=== PATIENT | female | born 1995 | race Caucasian/White ===

== ENCOUNTER 2018-04-27 11:50 | Emergency (ER) | payer BC ==
--- NOTE | 2018-04-27 13:35 | EDPHYS ---
Physician Documentation [facility] Name: Kelly Hill Age: 22 yrs Sex: Female : 1995 Arrival Date: 04/27/2018 Time: 11:53 Bed 25 Private MD: None, None ED Physician Alex Prince MEDICAL SCIENTIFIC LIAISON: 04/27 11:58 LMP 04/27/2018 sg Historical: - Allergies: 11:55 No Known Allergies; sg - Home Meds: 11:55 None [Active]; sg - PMHx: 11:55 None; sg - PSHx: 11:54 achilles repair; sg - Immunization history:: Adult Immunizations up to date. - Social history:: Smoking status: Patient/guardian denies using tobacco, Patient/guardian denies using alcohol. - Ebola Screening: : Patient negative for fever greater than or equal to 101.5 degrees Fahrenheit, and additional compatible Ebola Virus Disease symptoms Patient denies exposure to infectious person Patient denies travel to an Ebola-affected area in the 21 days before illness onset No symptoms or risks identified at this time. Vital Signs: 11:58 BP 114 / 71; Pulse 64; Resp 17 S; Pulse Ox 99% on R/A; Weight 81.65 kg (R); Height 5 sg ft. 5 in. (165.10 cm); Pain 7/10; 12:00 Temp 98.0(O); sg 13:47 BP 120 / 75; Pulse 65; Resp 18; Pulse Ox 100% on R/A; hj 11:58 Body Mass Index 29.95 (81.65 kg, 165.10 cm) sg MDM: 13:34 Patient medically screened. kdr 04/27 13:18 Order name: Urine Dipstick--Ancillary (enter results) mb4 04/27 13:18 Order name: Urine --Ancillary (enter results) mb4 Administered Medications: 13:33 Drug: Clindamycin 300 mg Route: PO; hj 13:47 Follow up: Response: No adverse reaction hj 13:33 Drug: Amoxicillin 500 mg Route: PO; hj 13:47 Follow up: Response: No adverse reaction hj 13:33 Drug: Tylenol 1000 mg Route: PO; hj 13:47 Follow up: Response: No adverse reaction; Pain is decreased hj 13:33 Drug: Zofran 4 mg Route: PO; hj 13:47 Follow up: Response: No adverse reaction Disposition: 04/27/18 13:34 Discharged to Home. Impression: Peeritdontal infection left rear molar. - Condition is Stable. - Discharge Instructions: Dental Abscess, [id number]. - Prescriptions for Amoxicillin 500 mg Oral Capsule - take 1 capsule by ORAL route every 8 hours for 10 days; 30 tablet. Clindamycin HCl 300 mg Oral Capsule - take 1 capsule by ORAL route every 6 hours for 10 days; 40 capsule. Tramadol 50 mg Oral Tablet - take 1 tablet by ORAL route every 8 hours as needed; 12 tablet. promethazine 25 mg Oral Tablet - take 1 tablet by ORAL route every 6 hours As needed; 20 tablet. - Medication Reconciliation Form, Thank You Letter, Antibiotic Education, Prescription Opioid Use form. - Follow up: Private Physician; When: 2 - 3 days; Reason: If symptoms return, Further diagnostic work-up, Recheck today's complaints, Continuance of care, Re-evaluation by your physician. - Problem is an acute exacerbation. - Symptoms are unchanged. Addendum: 05/12/2018 11:04 Addendum: CC: Jaw Pain HPI: The patient has had long standing problems with her teeth k dr and for the last few days, she has had worsening left lower jaw pain. No other associated s/s . Addendum: ROS: Const: No fever, chills or weight loss Eyes: no visual changes or c/o, Neck: no pain or injury, CV: no CP or palpitations, Resp: no cough or congestion Abd: no n/v/d or pain, Back: no pain or injury, : no pain or bleeding, MS/Ext: no pain, injury, swelling, tingling, Skin: no lacerations, pain, injury, skin turgor good, Neuro: CN grossly intact and no other deficits, Psych: Appropriate for age, Allergy/Immunology: no rashes or other s/s, Endo: no evidence of polyuria, polydipsia, temperature control or other s/s . Addendum: Exam: Const: WDWN WF in NAD, Head/Face: no injury or deformity, she does have very mild swelling to the left lower jaw. No significant oral lesions Eyes: PERRLA, ENT: no pain, injury or bleeding, Neck: no pain, injury or deformity, full ROM Chest/Axilla: No pain, injury or deformity, CV: no rubs, gallops, murmurs, regular rate, Resp: CTAB, regular rate, Abd/GI: soft, NT, BS present in all quads and normal, Back: no injury or deformity, full ROM, MS/Extremity: no injury or deformity, FROM, distal pulses good and equal, Skin: no rashes, ecchymosis skin turgor good, Neuro: CN grossly intact, no other neuro deficits, Psych: appropriate for age, no SI/HI, no depression . Addendum: MDM (Discharge) All VS and nursing notes reviewed. The patient was counseled on the results and need for follow-up. The patient was discharged in stable condition. They were happy with the care they received and the plan for d/c and follow-up. . Signatures: Dispatcher [employer] EDKirby Celaya RN RN Alex Prince MD MD [facility] Brant Chamberlain RN RN Corrections: (The following items were deleted from the chart) 04/27 13:46 13:34 04/27/2018 13:34 Discharged to Home. Impression: Peeritdontal infection left rear hj molar. Condition is Stable. Forms are Medication Reconciliation Form, Thank You Letter, Antibiotic Education, Prescription Opioid Use. Follow up: Private Physician; When: 2 - 3 days; Reason: If symptoms return, Further diagnostic work-up, Recheck today's complaints, Continuance of care, Re-evaluation by your physician. Problem is an acute exacerbation. Symptoms are unchanged. kdr
--- NOTE | 2018-04-27 13:35 | ER ---
Nurse's Notes [facility] Name: Kelly Hill Age: 22 yrs Sex: Female : 1995 Arrival Date: 04/27/2018 Time: 11:53 Bed 25 Private MD: None, None Diagnosis: Peeritdontal infection left rear molar Presentation: 04/27 11:55 Presenting complaint: Patient states: Right upper jaw pain and swelling, reports it sg might be an infected tooth. has had nausea but denies, vomiting, fever, diarrhea. Transition of care: patient was not received from another setting of care. Onset of symptoms was April 27, 2018. Risk Assessment: Do you want to hurt yourself or someone else? Patient reports no desire to harm self or others. Initial Sepsis Screen: Does the patient meet any 2 criteria? No. Patient's initial sepsis screen is negative. Does the patient have a suspected source of infection? No. Patient's initial sepsis screen is negative. Care prior to arrival: None. 11:55 Method Of Arrival: Ambulatory sg 11:55 Acuity: JULISSA 4 sg Triage Assessment: 12:51 Headache History: Denies prior headaches. General: Appears in no apparent distress. hj uncomfortable, Behavior is calm, cooperative, appropriate for age. Pain: Complains of pain in L upper tooth Pain Pain began Also complains of. EENT: Reports pain in L upper tooth. Neuro: Level of Consciousness is awake, alert, obeys commands, Oriented to person, place, time, situation, Appropriate for age. Cardiovascular: Capillary refill < 3 seconds Patient's skin is warm and dry. Respiratory: Airway is patent Respiratory effort is even, unlabored, Respiratory pattern is regular, symmetrical. GI: No signs and/or symptoms were reported involving the gastrointestinal system. : No signs and/or symptoms were reported regarding the genitourinary system. Derm: No signs and/or symptoms reported regarding the dermatologic system. Musculoskeletal: No signs and/or symptoms reported regarding the musculoskeletal system. 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 - Social history:: Smoking status: Patient/guardian denies using tobacco, Patient/guardian denies using alcohol. - Ebola Screening: : Patient negative for fever greater than or equal to 101.5 degrees Fahrenheit, and additional compatible Ebola Virus Disease symptoms Patient denies exposure to infectious person Patient denies travel to an Ebola-affected area in the 21 days before illness onset No symptoms or risks identified at this time. Screenin:51 Abuse screen: Denies threats or abuse. Denies injuries from another. Nutritional hj screening: No deficits noted. Tuberculosis screening: No symptoms or risk factors identified. Fall Risk None identified. Assessment: 12:52 Reassessment: see triage for assessment;. hj Vital Signs: 11:58 BP 114 / 71; Pulse 64; Resp 17 S; Pulse Ox 99% on R/A; Weight 81.65 kg (R); Height 5 sg ft. 5 in. (165.10 cm); Pain 7/10; 12:00 Temp 98.0(O); sg 13:47 BP 120 / 75; Pulse 65; Resp 18; Pulse Ox 100% on R/A; hj 11:58 Body Mass Index 29.95 (81.65 kg, 165.10 cm) sg ED Course: 11:53 Patient arrived in ED. sb2 11:54 None, None is Private Physician. sb2 11:54 Arm band placed on. sg 11:57 Triage completed. sg 12:14 Alex Prinec MD is Attending Physician. kdr 12:47 Brant Chamberlain RN is Primary Nurse. hj 12:52 Patient has correct armband on for positive identification. Bed in low position. Call hj light in reach. Side rails up X 1. Adult w/ patient. 13:45 No provider procedures requiring assistance completed. Patient did not have IV access hj during this emergency room visit. Administered Medications: 13:33 Drug: Clindamycin 300 mg Route: PO; hj 13:47 Follow up: Response: No adverse reaction hj 13:33 Drug: Amoxicillin 500 mg Route: PO; hj 13:47 Follow up: Response: No adverse reaction hj 13:33 Drug: Tylenol 1000 mg Route: PO; hj 13:47 Follow up: Response: No adverse reaction; Pain is decreased hj 13:33 Drug: Zofran 4 mg Route: PO; hj 13:47 Follow up: Response: No adverse reaction hj Outcome: 13:34 Discharge ordered by . kdr 13:46 Discharged to home ambulatory, with family. 13:46 Condition: stable 13:46 Discharge instructions given to patient, family, Instructed on discharge instructions, follow up and referral plans. medication usage, Demonstrated understanding of instructions, follow-up care, medications, Prescriptions given X 4. 13:46 Patient left the ED. hj Signatures: Kirby Lowe RN RN Alex Prince MD MD kdr Joaquin, Henry, RN RN hj Billeau, Sheri sb2
[2018-04-27] MEDS ORDERED: AMOXICILLIN TRIHYDR 250 MG CAP ONE (13:40)
[2018-04-27] MEDS ORDERED: CLINDAMYCIN HCL 150 MG CAP ONE (13:40)
[2018-04-27] MEDS ORDERED: ACETAMINOPHEN 500 MG TAB ONE (13:40)
[2018-04-27] MEDS ORDERED: ONDANSETRON 4 MG (ODT) TAB ONE (13:41)
[2018-04-27 13:42] LABS: Urine Blood 2+ (NEG); Urine Glucose NEGATIVE (NEG); Urine Protein NEGATIVE (NEG); Urine pH 5.5 (5.0-7.0)
[2018-04-27 13:50] VITALS: BP 114/71; O2SAT 99
[2018-04-27 13:51] VITALS: TEMP 98
== END 2018-04-27 13:46 | disposition home or self-care (01) ==
LOC: ER 11:50
DX: K05.20 Aggressive periodontitis, unspecified (principal)
CPT/HCPCS: 81003; 81025; 99283

== ENCOUNTER 2018-12-07 07:14 | Emergency (ER) | payer BC ==
--- NOTE | 2018-12-07 08:36 | RAD REPORT ---
EXAM DESCRIPTION: RAD - Ankle Right 3 View - 12/07/2018 7:38 am CLINICAL HISTORY: Persistent right ankle and foot pain following fall 3 days earlier COMPARISON: None. FINDINGS: No fracture, dislocation or periosteal reaction. No joint effusion seen. No joint space na rrowing. No soft tissue abnormality. IMPRESSION: Negative right ankle
[2018-12-07] MEDS ORDERED: IBUPROFEN 400 MG TAB ONE (08:43)
[2018-12-07] MEDS ORDERED: IBUPROFEN 200 MG TAB PO ONE (08:43)
--- NOTE | 2018-12-07 08:55 | EDPHYS ---
Physician Documentation [facility] Name: Kelly Hill Age: 23 yrs Sex: Female : 1995 Arrival Date: 12/07/2018 Time: 07:18 Bed 5 Private MD: ED Physician Kenrick Castro HPI: 12/07 07:25 This 23 yrs old Female presents to ER via Unassigned with complaints of Right pm1 Ankle Injury. 07:25 The patient presents with pain. The complaints affect the right ankle. Onset: The pm1 symptoms/episode began/occurred just prior to arrival, this morning. Context: The problem was sustained at home, resulted from a mis-step by the patient, stairs, The mechanism of injury involved inversion of the affected ankle. Associated signs and symptoms: Pertinent negatives: calf tenderness, fever, numbness, swelling, tingling. Modifying factors: the symptoms are aggravated by weight bearing. Severity of symptoms: in the emergency department the symptoms are unchanged. The patient has not experienced similar symptoms in the past. The patient has not recently seen a physician. Patient tripped while walking down the stairs and stepped on her right foot inverted. Landed on her left side. Patient without any other pain than right ankle. No headache, head injury, neck pain, LOC. Historical: - Allergies: 07:29 No Known Allergies; ss - Home Meds: 07:29 None [Active]; ss - PMHx: 07:29 None; ss - PSHx: 07:29 achilles repair; ss - Immunization history:: Adult Immunizations up to date. - Social history:: Smoking status: Patient/guardian denies using tobacco. - Ebola Screening: : Patient denies exposure to infectious person Patient denies travel to an Ebola-affected area in the 21 days before illness onset. ROS: 07:25 Constitutional: Negative for fever, chills, and weight loss, Eyes: Negative for injury, pm1 pain, redness, and discharge, ENT: Negative for injury, pain, and discharge, Neck: Negative for injury, pain, and swelling, Cardiovascular: Negative for chest pain, palpitations, and edema, Respiratory: Negative for shortness of breath, cough, wheezing, and pleuritic chest pain, Abdomen/GI: Negative for abdominal pain, nausea, vomiting, diarrhea, and constipation, Back: Negative for injury and pain, : Negative for injury, bleeding, discharge, and swelling. 07:25 Skin: Negative for injury, rash, and discoloration, Neuro: Negative for headache, weakness, numbness, tingling, and seizure. 07:25 MS/extremity: Positive for pain, of the right ankle, Negative for decreased range of motion, deformity. Exam: 07:25 Constitutional: This is a well developed, well nourished patient who is awake, alert, pm1 and in no acute distress. Head/Face: Normocephalic, atraumatic. Neck: Trachea midline, no thyromegaly or masses palpated, and no cervical lymphadenopathy. Supple, full range of motion without nuchal rigidity, or vertebral point tenderness. No Meningismus. Chest/axilla: Normal chest wall appearance and motion. Nontender with no deformity. No lesions are appreciated. Cardiovascular: Regular rate and rhythm with a normal S1 and S2. No gallops, murmurs, or rubs. Normal PMI, no JVD. No pulse deficits. Respiratory: Lungs have equal breath sounds bilaterally, clear to auscultation and percussion. No rales, rhonchi or wheezes noted. No increased work of breathing, no retractions or nasal flaring. Abdomen/GI: Soft, non-tender, with normal bowel sounds. No distension or tympany. No guarding or rebound. No evidence of tenderness throughout. Back: No spinal tenderness. No costovertebral tenderness. Full range of motion. Skin: Warm, dry with normal turgor. Normal color with no rashes, no lesions, and no evidence of cellulitis. 07:25 Musculoskeletal/extremity: Extremities: noted in the right medial malleolus: pain, There is no evidence of decreased ROM, deformity, swelling, ROM: intact in all extremities, Circulation is intact in all extremities. Sensation intact. 07:25 Neuro: Orientation: is normal, Motor: is normal, moves all fours. Vital Signs: 07:29 BP 129 / 82; Pulse 73; Resp 16; Temp 97.7(TE); Pulse Ox 98% on R/A; Weight 81.65 kg; ss Height 5 ft. 4 in. (162.56 cm); Pain 3/10; 07:29 Body Mass Index 30.90 (81.65 kg, 162.56 cm) ss Procedures: 08:30 Splinting: Splint applied to right ankle using Air Cast, applied by nurse. Examined by pm1 me, post splint application: neurovascular intact, 2+ distal pulses palpable, brisk capillary refill noted, Patient tolerated well. MDM: 07:22 Patient medically screened. pm1 07:25 ED course: Patient does not want any pain medications offered in the ER. pm1 07:31 Data reviewed: vital signs. Data interpreted: Pulse oximetry: on room air is 98 %. pm1 Interpretation: normal. 08:21 Counseling: I had a detailed discussion with the patient and/or guardian regarding: the pm1 historical points, exam findings, and any diagnostic results supporting the discharge/admit diagnosis, radiology results, the need for outpatient follow up, a orthopedic surgeon, to return to the emergency department if symptoms worsen or persist or if there are any questions or concerns that arise at home. 08:21 ED course: Patient requesting medication for pain now. Patient does not want any pm1 medications stronger than ibuprofen. 08:21 ED course: Negative right ankle xray interpreted by me. Will discharge patient home pm1 with splint and crutches to follow up with orthopedics. 12/07 07:25 Order name: Ankle Right 3 View XRAY; Complete Time: 08:41 pm1 12/07 08:21 Order name: Crutches; Complete Time: 08:50 pm1 12/07 08:21 Order name: Aircast Ankle Splint; Complete Time: 08:50 pm1 Administered Medications: 08:50 Drug: Ibuprofen 600 mg Route: PO; ph 08:50 Follow up: Response: No adverse reaction ph Disposition: 12/08 06:50 Co-signature as Attending Physician, Kenrick Castro MD I agree with the assessment and wa plan of care. Disposition: 12/07/18 08:23 Discharged to Home. Impression: Sprain of unspecified ligament of right ankle. - Condition is Stable. - Discharge Instructions: Ankle Sprain, Crutch Use. - Work release form, Medication Reconciliation Form, Thank You Letter, Antibiotic Education, Prescription Opioid Use form. - Follow up: Emergency Department; When: As needed; Reason: Worsening of condition. Follow up: Kirby Blanc MD; When: 2 - 3 days; Reason: Recheck today's complaints, Continuance of care, Re-evaluation by your physician. - Problem is new. - Symptoms have improved. Signatures: Dispatcher [employer] EDMS Sasha Ames RN RN ss Kasandra Smith RN RN ph Oskar Angulo, USHA FELT COVERER pm1 Kenrick Castro MD MD wa Corrections: (The following items were deleted from the chart) 12/07 08:54 08:23 12/07/2018 08:23 Discharged to Home. Impression: Sprain of unspecified ligament ph of right ankle. Condition is Stable. Forms are Medication Reconciliation Form, Thank You Letter, Antibiotic Education, Prescription Opioid Use. Follow up: Emergency Department; When: As needed; Reason: Worsening of condition. Follow up: Kirby Blanc; When: 2 - 3 days; Reason: Recheck today's complaints, Continuance of care, Re-evaluation by your physician. Problem is new. Symptoms have improved. pm1
--- NOTE | 2018-12-07 08:55 | ER ---
Nurse's Notes [facility] Name: Kelly Hill Age: 23 yrs Sex: Female : 1995 Arrival Date: 12/07/2018 Time: 07:18 Bed 5 Private MD: Diagnosis: Sprain of unspecified ligament of right ankle Presentation: 12/07 07:27 Presenting complaint: Patient states: pain to top of R foot and R ankle that began 20 ss minutes ago after falling down 3 steps and landing on ankle wrong. Transition of care: patient was not received from another setting of care. Onset of symptoms was December 07, 2018. Risk Assessment: Do you want to hurt yourself or someone else? Patient reports no desire to harm self or others. Initial Sepsis Screen: Does the patient meet any 2 criteria? No. Patient's initial sepsis screen is negative. Does the patient have a suspected source of infection? No. Patient's initial sepsis screen is negative. Care prior to arrival: None. 07:27 Method Of Arrival: Wheelchair ss 07:27 Acuity: JULISSA 4 ss Historical: - Allergies: 07:29 No Known Allergies; ss - Home Meds: 07:29 None [Active]; ss - PMHx: 07:29 None; ss - PSHx: 07:29 achilles repair; ss - Immunization history:: Adult Immunizations up to date. - Social history:: Smoking status: Patient/guardian denies using tobacco. - Ebola Screening: : Patient denies exposure to infectious person Patient denies travel to an Ebola-affected area in the 21 days before illness onset. Screenin:33 Abuse screen: Denies threats or abuse. Denies injuries from another. Nutritional ph screening: No deficits noted. Tuberculosis screening: No symptoms or risk factors identified. Fall Risk None identified. Assessment: 07:45 General: Appears in no apparent distress. comfortable. Pain: Complains of pain in right ph foot and right ankle. Neuro: Level of Consciousness is awake, alert, obeys commands, Oriented to person, place, time, situation. Cardiovascular: Capillary refill < 3 seconds in bilateral fingers Patient's skin is warm and dry. Pulses are palpable in right dorsalis pedis artery and left dorsalis pedis artery. Respiratory: Airway is patent Respiratory effort is even, unlabored, Respiratory pattern is regular, symmetrical. Derm: Skin is intact, is healthy with good turgor, Skin is pink, warm \T\ dry. Musculoskeletal: Circulation, motion, and sensation intact. Range of motion: intact in all extremities, Swelling absent. 08:51 Reassessment: Patient appears in no apparent distress at this time. Patient and/or ph family updated on plan of care and expected duration. Pain level reassessed. Patient is alert, oriented x 3, equal unlabored respirations, skin warm/dry/pink. Pt d/c home w SO. Vital Signs: 07:29 BP 129 / 82; Pulse 73; Resp 16; Temp 97.7(TE); Pulse Ox 98% on R/A; Weight 81.65 kg; ss Height 5 ft. 4 in. (162.56 cm); Pain 3/10; 07:29 Body Mass Index 30.90 (81.65 kg, 162.56 cm) ED Course: 07:18 Patient arrived in ED. tw3 07:22 Oskar Angulo NP is PHCP. pm1 07:22 Austin Drew MD is Attending Physician. pm1 07:28 Triage completed. ss 07:29 Arm band placed on right wrist. ss 07:31 Kasandra Smith, MARTA is Primary Nurse. ph 07:33 Patient has correct armband on for positive identification. Bed in low position. Call ph light in reach. Side rails up X 1. Pulse ox on. NIBP on. 07:36 X-ray completed. Portable x-ray completed in exam room. Patient tolerated procedure jb2 well. 07:36 Ankle Right 3 View XRAY In Process Unspecified. EDMS 08:22 No provider procedures requiring assistance completed. Patient did not have IV access ph during this emergency room visit. 08:23 Kirby Blanc MD is Referral Physician. pm1 08:26 Kenrick Castro MD is Attending Physician. pm1 08:51 Crutch training done. Air stirrup applied to right ankle. ph Administered Medications: 08:50 Drug: Ibuprofen 600 mg Route: PO; ph 08:50 Follow up: Response: No adverse reaction ph Outcome: 08:23 Discharge ordered by . pm1 08:51 Discharged to home ambulatory, with crutches, with significant other. ph 08:51 Condition: good 08:51 Discharge instructions given to patient, Instructed on discharge instructions, follow up and referral plans. crutch walking, Demonstrated understanding of instructions, follow-up care, crutch walking. 08:54 Patient left the ED. ph Signatures: Dispatcher [employer] Fernando Mcwilliams Shelby, RN Kasandra Maddox RN RN ph Marinas, Patrick, RUG RENOVATOR RUG RENOVATOR pm1 Nicolas, Destiny tw3
[2018-12-07 08:58] VITALS: BP 129/82; TEMP 97.7; O2SAT 98
== END 2018-12-07 08:54 | disposition home or self-care (01) ==
LOC: ER 07:14
DX: S93.401A Sprain of unspecified ligament of right ankle, initial encounter (principal); W10.8XXA Fall (on) (from) other stairs and steps, initial encounter; Y93.9 Activity, unspecified; Y92.9 Unspecified place or not applicable
CPT/HCPCS: 99284

== ENCOUNTER 2019-03-07 07:02 | Emergency (ER) | payer BC ==
[2019-03-07 07:56] LABS: Absolute Lymphocytes (CBC) 2.9 K/uL (0.7-4.9); Basophils % 0.4 % (0-1.3); Eosinophils % 1.7 % (0-4.4); Hematocrit 42.8 % (36.0-45.0); Lymphocytes % 37.8 % (15.3-44.8); MPV 7.9 fL (7.6-11.3); Monocytes % 7.5 % (3.3-12.3); RBC Red Blood Cell Count 4.98 M/uL (3.86-4.86)
[2019-03-07 08:25] LABS: BUN Blood Urea Nitrogen 17 mg/dL (7-18); Bicarbonate 27 mmol/L (21-32); Glucose Level 94 mg/dL (74-106); HCG, Quantitative 11653 mIU/mL (1-3); Potassium 3.9 mmol/L (3.5-5.1); Sodium Level 139 mmol/L (136-145)
--- NOTE | 2019-03-07 08:32 | EDPHYS ---
Physician Documentation [facility] Name: Kelly Hill Age: 23 yrs Sex: Female : 1995 Arrival Date: 03/07/2019 Time: 07:03 Bed 13 Private MD: ED Physician Robbie Jensen HPI: 03/07 07:16 This 23 yrs old Female presents to ER via Unassigned with complaints of Vag rn Bleeding 8 Wks Preg. 07:16 The patient presents to the emergency department with abdominal pain, of the right rn lower quadrant and left lower quadrant, that started this morning, described as crampy, vaginal bleeding. The estimated gestational age is 8 weeks. course: care: private OB physician, Leakage of Fluid: none appreciated, Ultrasound: the patient has not had an ultrasound. Previous pregnancies: the patient has never been . The patient has not experienced similar symptoms in the past. \T\ approx 8 weeks, has seen Dr. Cruz recently, + light vaginal bleeding, + abd cramping, no trauma, no other vaginal discharge. . 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 - Social history:: Smoking status: Patient/guardian denies using tobacco. - Family history:: not pertinent. - Ebola Screening: : Patient negative for fever greater than or equal to 101.5 degrees Fahrenheit, and additional compatible Ebola Virus Disease symptoms. - Hospitalizations: : No recent hospitalization is reported. ROS: 07:16 Constitutional: Negative for fever, chills, and weight loss, Eyes: Negative for injury, rn pain, redness, and discharge, Cardiovascular: Negative for chest pain, palpitations, and edema, Respiratory: Negative for shortness of breath, cough, wheezing, and pleuritic chest pain, Abdomen/GI: + abd cramping Back: Negative for injury and pain, : + vaginal bleeding MS/Extremity: Negative for injury and deformity, Skin: Negative for injury, rash, and discoloration, Neuro: Negative for headache, weakness, numbness, tingling, and seizure. Exam: 07:16 Constitutional: This is a well developed, well nourished patient who is awake, alert, rn and in no acute distress. Head/Face: Normocephalic, atraumatic. Eyes: Pupils equal round and reactive to light, extra-ocular motions intact. Lids and lashes normal. Conjunctiva and sclera are non-icteric and not injected. Cornea within normal limits. Periorbital areas with no swelling, redness, or edema. ENT: MMM Cardiovascular: No pulse deficits. Respiratory: No increased work of breathing, no retractions or nasal flaring. Abdomen/GI: soft, mild bilateral lower abd tenderness, no rebound or peritoneal signs. Skin: Warm, dry with normal turgor. Normal color with no rashes, no lesions, and no evidence of cellulitis. Neuro: Awake and alert, GCS 15 Vital Signs: 07:10 BP 125 / 91; Pulse 83; Resp 17; Temp 98.0(O); Pulse Ox 99% on R/A; Weight 81.19 kg (R); rb1 Height 5 ft. 5 in. (165.10 cm) (R); Pain 0/10; 07:30 BP 128 / 78; Pulse 80; Resp 16; Temp 98.0(O); Pulse Ox 100% on R/A; Pain 0/10; rb1 08:15 rb1 08:35 BP 101 / 78; Pulse 72; Resp 16; Temp 98.0(O); Pulse Ox 99% on R/A; Pain 0/10; rb1 07:10 Body Mass Index 29.79 (81.19 kg, 165.10 cm) rb1 08:15 Pt. in [place] rb1 MDM: 07:11 Patient medically screened. rn 08:30 Differential diagnosis: ectopic . Data reviewed: vital signs, nurses notes, procedures rn test result(s), radiologic studies, ultrasound, and as a result, I will discharge patient. Counseling: I had a detailed discussion with the patient and/or guardian regarding: the historical points, exam findings, and any diagnostic results supporting the discharge/admit diagnosis, lab results, radiology results, the need for outpatient follow up, to return to the emergency department if symptoms worsen or persist or if there are any questions or concerns that arise at home. Special discussion: I discussed with the patient/guardian in detail that at this point there is no indication for admission to the hospital. It is understood, however, that if the symptoms persist or worsen the patient needs to return immediately for re-evaluation. Based on the history and exam findings, there is no indication for further emergent testing or inpatient evaluation. I discussed with the patient/guardian the need to see the OB Gyne specialist for further evaluation of the symptoms. ED course: U/S with pole and flickering heart beat, will dc home with pelvic rest and OB f/u. Approx 5w5d. . ED course: Rh+. Patient notified. Neg UA and no urinary symptoms.. 03/07 07:16 Order name: Quantitative Hcg; Complete Time: 08:32 rn 03/07 07:16 Order name: Abo/rh Typing; Complete Time: 08:24 rn 03/07 07:16 Order name: Basic Metabolic Panel; Complete Time: 08:32 rn 03/07 07:16 Order name: CBC with Diff; Complete Time: 08:01 rn 03/07 08:01 Order name: Urine Dipstick--Ancillary (enter results) ag 03/07 08:01 Order name: Urine --Ancillary (enter results) ag 03/07 07:16 Order name: Urine Test (obtain specimen); Complete Time: 07:57 rn 03/07 07:16 Order name: IV Saline Lock; Complete Time: 07:44 rn 03/07 07:16 Order name: Labs collected and sent; Complete Time: 07:44 rn 03/07 07:16 Order name: NPO; Complete Time: 07:44 rn 03/07 07:16 Order name: Urine Dipstick-Ancillary (obtain specimen); Complete Time: 07:57 rn 03/07 07:16 Order name: US Transvaginal Ob rn Administered Medications: No medications were administered Disposition: 03/07/19 08:32 Discharged to Home. Impression: Threatened . - Condition is Stable. - Discharge Instructions: Threatened Miscarriage, Vaginal Bleeding During , First Trimester, Pelvic Rest. - Medication Reconciliation Form, Thank You Letter, Antibiotic Education, Prescription Opioid Use, Work release form form. - Follow up: Judd Cruz MD; When: As needed; Reason: Recheck today's complaints, Re-evaluation by your physician. - Problem is new. - Symptoms have improved. Signatures: Dispatcher [employer] EDMS Robbie Jensen MD MD rn Nimco Pierce RN RN rb1 Corrections: (The following items were deleted from the chart) 08:47 08:32 03/07/2019 08:32 Discharged to Home. Impression: Threatened . Condition rb1 is Stable. Forms are Medication Reconciliation Form, Thank You Letter, Antibiotic Education, Prescription Opioid Use. Follow up: Judd Cruz; When: As needed; Reason: Recheck today's complaints, Re-evaluation by your physician. Problem is new. Symptoms have improved. rn
--- NOTE | 2019-03-07 08:32 | ER ---
Nurse's Notes [facility] Name: Kelly Hill Age: 23 yrs Sex: Female : 1995 Arrival Date: 03/07/2019 Time: 07:03 Bed 13 Private MD: Diagnosis: Threatened Presentation: 03/07 07:10 Presenting complaint: Patient states: Woke up with cramps and nausea and vomiting this rb1 morning. Has a milky red discharge. Transition of care: patient was not received from another setting of care. Onset of symptoms was March 07, 2019. Risk Assessment: Do you want to hurt yourself or someone else? Patient reports no desire to harm self or others. Initial Sepsis Screen: Does the patient meet any 2 criteria? No. Patient's initial sepsis screen is negative. Does the patient have a suspected source of infection? No. Patient's initial sepsis screen is negative. Care prior to arrival: None. 07:10 Method Of Arrival: Ambulatory rb1 07:10 Acuity: JULISSA 3 rb1 Triage Assessment: 07:10 General: Appears in no apparent distress. comfortable, Behavior is calm, cooperative, rb1 Denies fever. Pain: Denies pain. Quality of pain is described as crampy. Neuro: Level of Consciousness is awake, alert, obeys commands, Oriented to person, place, time, situation. Cardiovascular: Capillary refill < 3 seconds is brisk in bilateral fingers. Respiratory: Airway is patent Respiratory effort is even, unlabored, Respiratory pattern is regular, symmetrical. GI: Reports nausea, vomiting, started this morning. : No signs and/or symptoms were reported regarding the genitourinary system. Derm: Skin is pink, warm \T\ dry. 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 - Social history:: Smoking status: Patient/guardian denies using tobacco. - Family history:: not pertinent. - Ebola Screening: : Patient negative for fever greater than or equal to 101.5 degrees Fahrenheit, and additional compatible Ebola Virus Disease symptoms. - Hospitalizations: : No recent hospitalization is reported. Screenin:10 Abuse screen: Denies threats or abuse. Nutritional screening: No deficits noted. rb1 Tuberculosis screening: No symptoms or risk factors identified. Fall Risk None identified. Assessment: 07:10 General: See triage assessment. rb1 08:00 Reassessment: Patient appears in no apparent distress at this time. No changes from rb1 previously documented assessment. Significant other at bedside. 08:15 Reassessment: Pt. is in US. rb1 08:35 Reassessment: Patient appears in no apparent distress at this time. Patient and/or rb1 family updated on plan of care and expected duration. Pain level reassessed. Patient is alert, oriented x 3, equal unlabored respirations, skin warm/dry/pink. Patient denies pain at this time. Vital Signs: 07:10 BP 125 / 91; Pulse 83; Resp 17; Temp 98.0(O); Pulse Ox 99% on R/A; Weight 81.19 kg (R); rb1 Height 5 ft. 5 in. (165.10 cm) (R); Pain 0/10; 07:30 BP 128 / 78; Pulse 80; Resp 16; Temp 98.0(O); Pulse Ox 100% on R/A; Pain 0/10; rb1 08:15 rb1 08:35 BP 101 / 78; Pulse 72; Resp 16; Temp 98.0(O); Pulse Ox 99% on R/A; Pain 0/10; rb1 07:10 Body Mass Index 29.79 (81.19 kg, 165.10 cm) rb1 08:15 Pt. in [facility] ED Course: 07:03 Patient arrived in ED. ds1 07:07 Robbie Jensen MD is Attending Physician. rn 07:10 Arm band placed on right wrist. rb1 07:10 Patient has correct armband on for positive identification. Bed in low position. Call rb1 light in reach. Side rails up X 1. Pulse ox on. NIBP on. Warm blanket given. 07:17 Nimco Pierce, RN is Primary Nurse. rb1 07:24 Triage completed. rb1 07:27 Radiology exam delayed due to test not completed at this time. hr 07:35 Inserted saline lock: 22 gauge in right antecubital area, using aseptic technique. rb1 Blood collected. 08:16 US Transvaginal Ob In Process Unspecified. EDMS 08:31 Judd Cruz MD is Referral Physician. rn 08:47 No provider procedures requiring assistance completed. IV discontinued, intact, rb1 bleeding controlled, No redness/swelling at site. Pressure dressing applied. Administered Medications: No medications were administered Outcome: 08:32 Discharge ordered by MD. rn 08:47 Discharged to home ambulatory, with significant other. rb1 08:47 Condition: stable 08:47 Discharge instructions given to patient, Instructed on discharge instructions, follow up and referral plans. Demonstrated understanding of instructions, follow-up care, Prescriptions given X none 08:47 Patient left the ED. rb1 Signatures: Dispatcher [employer] EDNV Kin Kandiceflorentino Murphy, Bronwyn ds1 Robbie Jensen MD MD rn Barber, Rebecca, RN RN rb1
[2019-03-07 09:00] VITALS: TEMP 98
[2019-03-07 09:03] VITALS: BP 101/78; O2SAT 99
[2019-03-07 09:27] LABS: Urine Blood 1+ (NEG); Urine Glucose NEGATIVE (NEG); Urine Protein TRACE (NEG); Urine Specific Gravity 1.015 (1.005-1.030); Urine pH 8.5 (5.0-7.0)
--- NOTE | 2019-03-07 09:28 | RAD REPORT ---
EXAM DESCRIPTION: US - Transvaginal OB - 03/07/2019 8:16 am CLINICAL HISTORY: Bleeding, Preliminary findings provided at the time of the study. COMPARISON: None. FINDINGS: Uterus is 7.0 x 4.1 x 4.7 cm. No myometrial mass identified. Normal over shaped gestationa l sac is present in the fundal portion of the endometrial cavity. Yolk sac is identified. There is a small echogenic focus seen believed to be pole. Average sac diameter corresponds to a 6 week 0 day age. [place]-rump length measurement corresponds to a 5 week 5 day age. Cardiac activity was diffic ult to obtain but appears to be 100 BPM. No hematoma or mass within the uterus. A small complex 8 mm cyst present in the left ovary. No suspicious ovarian or adnexal finding. IMPRESSION: Early IUP is identified measuring 5 week 6 day age. Calculated JONATHAN is 11/01/2019. Heart rate was recorded at 100 BPM. This was difficult to obtain and is not definitive. No intrauterine hematoma or mass. No adnexal abnormality.
== END 2019-03-07 08:47 | disposition home or self-care (01) ==
LOC: ER 07:02
DX: O20.0 Threatened abortion (principal); Z3A.08 8 weeks gestation of pregnancy
CPT/HCPCS: 36415; 76817; 80048; 81003; 81025; 84702; 85025; 86900; 86901; 99284

== ENCOUNTER 2019-04-25 12:59 | Emergency (ER) | payer SELFPAY ==
[2019-04-25] MEDS ORDERED: FAMOTIDINE 20 MG/2 ML VIAL IV ONE (13:44)
[2019-04-25] MEDS ORDERED: NA CHLORIDE 0.9% 1,000 ML ONE ×2 (13:44→14:46)
[2019-04-25] MEDS ORDERED: ONDANSETRON 4 MG/2 ML VIAL ONE ×2 (13:44→14:22)
[2019-04-25 14:00] LABS: Absolute Lymphocytes (CBC) 1.6 K/uL (0.7-4.9); Basophils % 0.3 % (0-1.3); Hematocrit 39.3 % (36.0-45.0); Lymphocytes % 13.6 % (15.3-44.8); MPV 8.4 fL (7.6-11.3); RBC Red Blood Cell Count 4.65 M/uL (3.86-4.86)
[2019-04-25 14:16] LABS: ALT/SGPT 90 U/L (12-78); AST/SGOT 28 U/L (15-37); Albumin 4.1 g/dL (3.4-5.0); Alkaline Phosphatase 48 U/L (45-117); BUN Blood Urea Nitrogen 8 mg/dL (7-18); Bicarbonate 20 mmol/L (21-32); Bilirubin Direct 0.2 mg/dL (0-0.2); Bilirubin Total 0.8 mg/dL (0.2-1.0); Glucose Level 91 mg/dL (74-106); Lipase 59 U/L (73-393); Potassium 3.4 mmol/L (3.5-5.1); Protein, Total 7.9 g/dL (6.4-8.2); Sodium Level 137 mmol/L (136-145)
[2019-04-25] MEDS ORDERED: PROMETHAZINE 25 MG/ML VIAL ONE (14:46)
[2019-04-25 14:54] LABS: Urine Bacteria 20-50 /HPF (<20); Urine RBC <5 /HPF (NONE SEEN)
[2019-04-25 14:55] LABS: Urine Culture Reflex Order REFLEXED; Urine Mucus 2+ /HPF (NONE SEEN)
--- NOTE | 2019-04-25 16:21 | EDPHYS ---
Physician Documentation [facility] Name: Kelly Hill Age: 23 yrs Sex: Female : 1995 Arrival Date: 04/25/2019 Time: 13:00 Bed 6 Private MD: ED Physician Robbie Jensen HPI: 04/25 13:35 This 23 yrs old Female presents to ER via Ambulatory with complaints of cp Vomiting - 15 wks preg. 13:35 The patient presents to the emergency department with nausea, with "dry heaves", cp vomiting, that is continuous. 13:35 Onset: The symptoms/episode began/occurred this morning, at 03:00. Possible causes: cp . Associated signs and symptoms: Pertinent positives: abdominal pain, Pertinent negatives: constipation, diarrhea, fever, GI bleeding. Severity of symptoms: in the emergency department the symptoms are unchanged despite home interventions. 13:35 Patient reports she is approximately 15 weeks and denies any vaginal bleeding, cp leakage of fluids. 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 - Social history:: Smoking status: Patient/guardian denies using tobacco. - Ebola Screening: : No symptoms or risks identified at this time. ROS: 13:45 Constitutional: Positive for poor PO intake, Negative for body aches, chills, fever. cp 13:45 Eyes: Negative for injury, pain, redness, and discharge. cp 13:45 ENT: Negative for drainage from ear(s), ear pain, sore throat, difficulty swallowing, difficulty handling secretions. 13:45 Cardiovascular: Negative for chest pain. 13:45 Respiratory: Negative for cough, wheezing. 13:45 Abdomen/GI: Positive for abdominal pain, nausea and vomiting, anorexia, Negative for diarrhea, constipation, hematemesis, black/tarry stool, rectal bleeding. 13:45 : Negative for urinary symptoms, vaginal bleeding, vaginal discharge, leakage of fluids. 13:45 Skin: Negative for rash. 13:45 Neuro: Negative for altered mental status, headache, weakness. 13:45 All other systems are negative. Exam: 13:50 Constitutional: The patient appears in no acute distress, alert, awake, non-toxic, well cp developed, well nourished. 13:50 Head/Face: Normocephalic, atraumatic. cp 13:50 Eyes: Periorbital structures: appear normal, Conjunctiva: normal, no exudate, no injection, Sclera: no appreciated abnormality, Lids and lashes: appear normal, bilaterally. 13:50 ENT: External ear(s): are unremarkable, Nose: is normal, Mouth: Lips: moist, Oral mucosa: pink and intact, moist, Posterior pharynx: is normal, airway is patent, no erythema, no exudate. 13:50 Chest/axilla: Inspection: normal, Palpation: is normal, no crepitus, no tenderness. 13:50 Cardiovascular: Rate: normal, Rhythm: regular. 13:50 Respiratory: the patient does not display signs of respiratory distress, Respirations: normal, no use of accessory muscles, no retractions, no splinting, no tachypnea, labored breathing, is not present, Breath sounds: are clear throughout, no decreased breath sounds, no stridor, no wheezing. 13:50 Abdomen/GI: Inspection: abdomen appears normal, Bowel sounds: active, all quadrants, Palpation: soft, in all quadrants, mild abdominal tenderness, in the epigastric area, rebound tenderness, is not appreciated, voluntary guarding, is elicited in the epigastric area, involuntary guarding, is not appreciated. 13:50 Back: pain, is absent, ROM is normal. 13:50 Skin: no rash present. Vital Signs: 13:04 BP 128 / 81; Pulse 99; Resp 16; Temp 97.6; Pulse Ox 98% on R/A; Weight 79.38 kg; Height la1 5 ft. 4 in. (162.56 cm); 16:00 BP 124 / 76; Pulse 96; Resp 17; Pulse Ox 99% on R/A; rv 16:30 BP 126 / 71; Pulse 91; Resp 17; Temp 98; Pulse Ox 99% on R/A; rv 13:04 Body Mass Index 30.04 (79.38 kg, 162.56 cm) la1 MDM: 13:08 Patient medically screened. cp 15:55 ED course: VSS. Patient reports nausea improved. cp 16:00 Differential diagnosis: gastritis, cholecystitis, pancreatitis, viral gastroenteritis, cp gastroenteritis. 16:19 Data reviewed: vital signs, nurses notes, lab test result(s), and as a result, I will cp discharge patient. 16:20 Counseling: I had a detailed discussion with the patient and/or guardian regarding: the cp historical points, exam findings, and any diagnostic results supporting the discharge/admit diagnosis, lab results, to return to the emergency department if symptoms worsen or persist or if there are any questions or concerns that arise at home. 16:20 Response to treatment: the patient's symptoms have markedly improved after treatment. 04/25 13:29 Order name: Urine Microscopic Only; Complete Time: 15:51 04/25 15:52 Interpretation: Normal except: UBACT 20-50. 04/25 13:29 Order name: Basic Metabolic Panel; Complete Time: 14:22 04/25 14:22 Interpretation: Normal except: K 3.4; CO2 20. 04/25 13:29 Order name: CBC with Diff; Complete Time: 14:22 04/25 14:39 Interpretation: Normal except: WBC 12.0; NEUT A 9.9; LYM% 13.6; EDINSON% 82.7. 04/25 13:29 Order name: Creatinine for Radiology; Complete Time: 15:51 04/25 13:29 Order name: Hepatic Function; Complete Time: 14:22 04/25 14:40 Interpretation: Normal except: ALT 90; GLOB 3.8. 04/25 13:29 Order name: Lipase; Complete Time: 14:22 04/25 14:40 Interpretation: LIP 59; Reviewed. 04/25 13:48 Order name: Urine Dipstick--Ancillary (enter results) 04/25 13:48 Order name: Urine --Ancillary (enter results) 04/25 15:29 Order name: Urine Culture EDIN 04/25 13:29 Order name: Urine Dipstick-Ancillary (obtain specimen); Complete Time: 13:46 04/25 13:29 Order name: Urine Test (obtain specimen); Complete Time: 13:47 04/25 13:29 Order name: IV Saline Lock; Complete Time: 13:48 04/25 13:29 Order name: Labs collected and sent; Complete Time: 13:48 04/25 14:39 Order name: FHT's; Complete Time: 15:04 04/25 15:52 Order name: PO challenge; Complete Time: 16:29 cp Administered Medications: 13:48 Drug: Pepcid 20 mg Route: IVP; Site: right antecubital; hb 14:29 Follow up: Response: No adverse reaction; Nausea unchanged rv 13:49 Drug: NS 0.9% 1000 ml Route: IV; Rate: 1 bolus; Site: right antecubital; hb 14:29 Follow up: IV Status: Completed infusion; IV Intake: 1000ml rv 13:49 Drug: Zofran 4 mg Route: IVP; Site: right antecubital; hb 14:29 Follow up: Response: No adverse reaction; Nausea unchanged rv 14:27 Not Given (Duplicate Order): Zofran 4 mg IVP once; over 2 minutes sg 14:29 Drug: Zofran 4 mg Route: IVP; Site: right antecubital; rv 16:08 Follow up: Response: Nausea unchanged rv 14:50 Drug: Phenergan 25 mg Route: IVP; Site: right antecubital; rv 16:08 Follow up: Response: Marked relief of symptoms; Nausea is decreased rv 14:50 Drug: NS 0.9% 1000 ml Route: IV; Rate: 1 bolus; Site: right antecubital; rv 16:08 Follow up: IV Status: Completed infusion; IV Intake: 1000ml rv Disposition: 16:41 Co-signature as Attending Physician, Robbie Jensen MD. rn Disposition: 04/25/19 16:20 Discharged to Home. Impression: related conditions, unspecified, Nausea and vomiting. - Condition is Stable. - Discharge Instructions: Nausea and Vomiting, Adult, Second Trimester of , [id number]. - Prescriptions for Phenergan 25 mg Rectal Suppository - insert 1 suppository by RECTAL route every 6 hours As needed; 12 suppository. promethazine 25 mg Oral Tablet - take 1 tablet by ORAL route every 6 hours As needed; 20 tablet. - Medication Reconciliation Form, Thank You Letter, Antibiotic Education, Prescription Opioid Use form. - Follow up: Private Physician; When: 2 - 3 days; Reason: Recheck today's complaints. - Problem is new. - Symptoms have improved. Signatures: Dispatcher [employer] Kirby Jain RN RN sg Nieto, Roman, MD MD rn Attema, Lee, RN RN la1 Ricky Hong PA PA cp Lashon Terry, RN RN Yoseph Villegas, RN RN rv Corrections: (The following items were deleted from the chart) 16:30 16:20 04/25/2019 16:20 Discharged to Home. Impression: related conditions, rv unspecified; Nausea and vomiting. Condition is Stable. Forms are Medication Reconciliation Form, Thank You Letter, Antibiotic Education, Prescription Opioid Use. Follow up: Private Physician; When: 2 - 3 days; Reason: Recheck today's complaints. Problem is new. Symptoms have improved. cp
--- NOTE | 2019-04-25 16:21 | ER ---
Nurse's Notes [facility] Name: Kelly Hill Age: 23 yrs Sex: Female : 1995 Arrival Date: 04/25/2019 Time: 13:00 Bed 6 Private MD: Diagnosis: related conditions, unspecified;Nausea and vomiting Presentation: 04/25 13:03 Presenting complaint: Patient states: I am 15 weeks and having problems with la1 vomiting. I have not been able to hold anything down since 0300. I take bonjesta at home for nausea but its not helping. Transition of care: patient was not received from another setting of care. Onset of symptoms was April 25, 2019. Risk Assessment: Do you want to hurt yourself or someone else? Patient reports no desire to harm self or others. Initial Sepsis Screen: Does the patient meet any 2 criteria? No. Patient's initial sepsis screen is negative. Does the patient have a suspected source of infection? No. Patient's initial sepsis screen is negative. Care prior to arrival: None. 13:03 Method Of Arrival: Ambulatory la1 13:03 Acuity: JULISSA 3 la1 Triage Assessment: 13:05 General: Appears in no apparent distress. comfortable, Behavior is cooperative, bp appropriate for age, anxious. Pain: Denies pain. EENT: No deficits noted. Neuro: No deficits noted. Cardiovascular: No deficits noted. Respiratory: No deficits noted. GI: Reports nausea, vomiting. : No signs and/or symptoms were reported regarding the genitourinary system. Derm: No deficits noted. Musculoskeletal: No deficits noted. 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 - Social history:: Smoking status: Patient/guardian denies using tobacco. - Ebola Screening: : No symptoms or risks identified at this time. Screenin:09 Abuse screen: Denies threats or abuse. Denies injuries from another. Nutritional bp screening: No deficits noted. Tuberculosis screening: No symptoms or risk factors identified. Fall Risk None identified. Assessment: 13:08 General: SEE TRIAGE NOTE. GI: Abdomen is non-distended. bp 14:20 Reassessment: pt mother reports patient is nauseated after first round of zofran, sg requesting more medication. Aashish LEGGETT notified, orders received at this time. 14:45 Reassessment: pt mother at bedside, reports pt is "still vomiting". will attempt to do sg heart tones when patient is able to sit back in the bed. 14:47 Reassessment: Patient appears in no apparent distress at this time. Aashish LEGGETT notified sg pt experiencing nausea at this time, awaiting new orders. 15:54 Reassessment: Patient appears in no apparent distress at this time. Patient and/or sg family updated on plan of care and expected duration. Pain level reassessed. Patient is alert, oriented x 3, equal unlabored respirations, skin warm/dry/pink. pt to be PO challenged at this time, Aashish LEGGETT at bedside reevaluating pt at this time Patient states feeling better. Vital Signs: 13:04 BP 128 / 81; Pulse 99; Resp 16; Temp 97.6; Pulse Ox 98% on R/A; Weight 79.38 kg; Height la1 5 ft. 4 in. (162.56 cm); 16:00 BP 124 / 76; Pulse 96; Resp 17; Pulse Ox 99% on R/A; rv 16:30 BP 126 / 71; Pulse 91; Resp 17; Temp 98; Pulse Ox 99% on R/A; rv 13:04 Body Mass Index 30.04 (79.38 kg, 162.56 cm) la1 Vitals: 15:02 Heart Tones 160s RLQ. rv ED Course: 13:00 Patient arrived in ED. as 13:04 Triage completed. la1 13:04 Ricky Hong PA is PHCP. cp 13:04 Robbie Jensen MD is Attending Physician. cp 13:04 Arm band placed on right wrist. la1 13:09 Patient has correct armband on for positive identification. Bed in low position. Call bp light in reach. Side rails up X2. 13:48 Lashon Terry RN is Primary Nurse. hb 13:49 Initial lab(s) drawn, by nv, sent to lab. Inserted saline lock: 20 gauge in right em1 antecubital area, using aseptic technique. Blood collected. 14:17 Primary Nurse role handed off by Lashon Terry RN 14:17 Kirby Lowe, RN is Primary Nurse. sg 15:02 Yoseph Villegas, RN is Primary Nurse. rv 16:30 No provider procedures requiring assistance completed. IV discontinued, intact, rv bleeding controlled, No redness/swelling at site. Pressure dressing applied. Administered Medications: 13:48 Drug: Pepcid 20 mg Route: IVP; Site: right antecubital; hb 14:29 Follow up: Response: No adverse reaction; Nausea unchanged rv 13:49 Drug: NS 0.9% 1000 ml Route: IV; Rate: 1 bolus; Site: right antecubital; hb 14:29 Follow up: IV Status: Completed infusion; IV Intake: 1000ml rv 13:49 Drug: Zofran 4 mg Route: IVP; Site: right antecubital; hb 14:29 Follow up: Response: No adverse reaction; Nausea unchanged rv 14:27 Not Given (Duplicate Order): Zofran 4 mg IVP once; over 2 minutes sg 14:29 Drug: Zofran 4 mg Route: IVP; Site: right antecubital; rv 16:08 Follow up: Response: Nausea unchanged rv 14:50 Drug: Phenergan 25 mg Route: IVP; Site: right antecubital; rv 16:08 Follow up: Response: Marked relief of symptoms; Nausea is decreased rv 14:50 Drug: NS 0.9% 1000 ml Route: IV; Rate: 1 bolus; Site: right antecubital; rv 16:08 Follow up: IV Status: Completed infusion; IV Intake: 1000ml rv Intake: 14:29 IV: 1000ml; Total: 1000ml. rv 16:08 IV: 1000ml; Total: 2000ml. rv Outcome: 16:20 Discharge ordered by MD. cp 16:30 Discharged to home ambulatory, with family. rv 16:30 Condition: good 16:30 Discharge instructions given to patient, family, Instructed on discharge instructions, follow up and referral plans. medication usage, Demonstrated understanding of instructions, follow-up care, medications, Prescriptions given X 2. 16:30 Patient left the ED. rv Signatures: Kirby Lowe RN RN sg Bell Childress Eric em1 Raymon Little RN RN la1 Ricky Hong PA PA cp Baxter, Heather, RN RN Clyde Celis RN RN bp Bakari, Yoseph, RN RN rv
[2019-04-25 17:02] VITALS: O2SAT 99
[2019-04-25 17:05] VITALS: BP 126/71; TEMP 98
[2019-04-25 20:04] LABS: Urine Blood NEGATIVE (NEG); Urine Glucose NEGATIVE (NEG); Urine Protein 2+ (NEG); Urine pH 7.5 (5.0-7.0)
== END 2019-04-25 16:30 | disposition home or self-care (01) ==
LOC: ER 12:59
DX: O21.9 Vomiting of pregnancy, unspecified (principal); Z3A.15 15 weeks gestation of pregnancy
CPT/HCPCS: 36415; 80048; 80076; 81003; 81015; 81025; 83690; 85025; 87086; 87088; 96361; 96374; 96375; 99284; J2405; J2550; J7030

== ENCOUNTER 2019-05-04 10:26 | Emergency (ER) | payer SELFPAY ==
--- NOTE | 2019-05-04 11:17 | RAD REPORT ---
EXAM DESCRIPTION: RAD - Chest Single View - 05/04/2019 11:13 am CLINICAL HISTORY: DYSPNEA Chest pain. COMPARISON: No comparisons FINDINGS: Portable technique limits examination quality. The lungs are grossly clear. The heart is normal in size. No displaced fractures. IMPRESSION: No acute intrathoracic process suspected.
[2019-05-04] MEDS ORDERED: NA CHLORIDE 0.9% 1,000 ML ONE (11:26)
[2019-05-04] MEDS ORDERED: ONDANSETRON 4 MG/2 ML VIAL ONE ×2 (11:44→11:45)
[2019-05-04 11:48] LABS: Absolute Lymphocytes (CBC) 1.9 K/uL (0.7-4.9); Basophils % 0.3 % (0-1.3); Hematocrit 37.8 % (36.0-45.0); Lymphocytes % 20.3 % (15.3-44.8); MPV 8.4 fL (7.6-11.3); RBC Red Blood Cell Count 4.41 M/uL (3.86-4.86)
[2019-05-04 12:00] LABS: Arterial Blood Carboxyhemoglob 0.9 % (0-1.5); Blood Gas Oxyhemoglobin 97.5 % (94-97); Blood O2 Saturation 99.1 % (92-98.5)
[2019-05-04 12:06] LABS: BUN Blood Urea Nitrogen 7 mg/dL (7-18); Bicarbonate 25 mmol/L (21-32); Glucose Level 82 mg/dL (74-106); Potassium 3.6 mmol/L (3.5-5.1); Sodium Level 138 mmol/L (136-145)
--- NOTE | 2019-05-04 12:15 | ER ---
Nurse's Notes [facility] Name: Kelly Hill Age: 23 yrs Sex: Female : 1995 Arrival Date: 05/04/2019 Time: 10:28 Bed 14 Private MD: Diagnosis: Dyspnea; related exhaustion and fatigue, second trimester;Hyperventilation Presentation: 05/04 10:36 Presenting complaint: Patient states: I feel like I am SOB and I am not getting enough la1 air, it started after I vomited this morning at 0500. I am still having nausea and vomiting. I am about 15 weeks . Transition of care: patient was not received from another setting of care. Onset of symptoms was May 04, 2019. Risk Assessment: Do you want to hurt yourself or someone else? Patient reports no desire to harm self or others. Initial Sepsis Screen: Does the patient meet any 2 criteria? No. Patient's initial sepsis screen is negative. Does the patient have a suspected source of infection? No. Patient's initial sepsis screen is negative. Care prior to arrival: None. 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 - Social history:: Smoking status: Patient/guardian denies using tobacco. - Ebola Screening: : No symptoms or risks identified at this time. - Family history:: not pertinent. Screenin:30 Abuse screen: Denies threats or abuse. Denies injuries from another. Nutritional jl7 screening: No deficits noted. Tuberculosis screening: No symptoms or risk factors identified. Fall Risk IV access (20 points). Total Sol Fall Scale indicates No Risk (0-24 pts). Assessment: 10:40 General: Appears in no apparent distress. uncomfortable, Behavior is cooperative, jl7 anxious. Pain: Complains of pain in low back area Pain does not radiate. Pain currently is 8 out of 10 on a pain scale. Quality of pain is described as sharp, Pain began "A while ago.". Neuro: Level of Consciousness is awake, alert, obeys commands, Oriented to person, place, time, situation. Cardiovascular: Heart tones S1 S2 present Rhythm is regular. Respiratory: Airway is patent Respiratory effort is even, unlabored, Respiratory pattern is regular, symmetrical, Breath sounds are clear bilaterally. GI: Abdomen is round non-distended. : No signs and/or symptoms were reported regarding the genitourinary system. EENT: No signs and/or symptoms were reported regarding the EENT system. Derm: Skin is pink, warm \\T\\ dry. Musculoskeletal: No signs and/or symptoms reported regarding the musculoskeletal system. 11:30 Reassessment: Patient appears in no apparent distress at this time. No changes from 7 previously documented assessment. Patient and/or family updated on plan of care and expected duration. Pain level reassessed. Patient is alert, oriented x 3, equal unlabored respirations, skin warm/dry/pink. 13:00 Reassessment: Dr. Chavis at bedside discussing plan of care. jl7 Vital Signs: 10:35 BP 118 / 81; Pulse 88; Resp 16; Temp 97.5; Pulse Ox 98% on R/A; Weight 81.65 kg; Height la1 5 ft. 4 in. (162.56 cm); 12:27 BP 145 / 65; Pulse 53; Resp 16 S; Pulse Ox 100% on R/A; jl7 10:35 Body Mass Index 30.90 (81.65 kg, 162.56 cm) la1 Vitals: 12:04 Heart Tones 138 bpm. jl7 ED Course: 10:28 Patient arrived in ED. cf2 10:36 Arm band placed on right wrist. la1 10:37 Triage completed. la1 10:38 Ricky Chavis MD is Attending Physician. sasha 10:40 Roger Sosa, MARTA is Primary Nurse. jl7 11:00 Initial lab(s) drawn, by me, sent to lab. Inserted saline lock: 20 gauge in right jl7 antecubital area, using aseptic technique. Blood collected. 11:14 Chest Single View XRAY In Process Unspecified. EDMS 11:23 EKG done, by pulmonary function technician. reviewed by Ricky Chavis MD. sm3 11:30 Patient has correct armband on for positive identification. Placed in gown. Bed in low jl7 position. Call light in reach. Side rails up X 1. Pulse ox on. NIBP on. Warm blanket given. 11:44 Urine collected: clean catch specimen, cloudy. 3 13:00 No provider procedures requiring assistance completed. IV discontinued, intact, jl7 bleeding controlled, No redness/swelling at site. Pressure dressing applied. Administered Medications: 11:30 Drug: NS 0.9% 500 ml Route: IV; Rate: bolus; Site: right antecubital; 7 12:28 Follow up: IV Status: Completed infusion; IV Intake: 500ml [facility] 11:46 Drug: Zofran 4 mg Route: IVP; Site: right antecubital; 7 12:00 Follow up: Response: No adverse reaction; Nausea is decreased [facility] 11:56 Drug: NS 0.9% 1000 ml Route: IV; Rate: 125 ml/hr; Site: right antecubital; 7 13:00 Follow up: Response: No adverse reaction; IV Status: Completed infusion; IV Intake: jl7 250ml Intake: 12:28 IV: 500ml; Total: 500ml. 7 13:00 IV: 250ml; Total: 750ml. [facility] Outcome: 12:14 Discharge ordered by . sasha 13:00 Discharged to home ambulatory, with family. [facility] 13:00 Condition: good 13:00 Discharge instructions given to patient, family, Instructed on discharge instructions, follow up and referral plans. medication usage, Demonstrated understanding of instructions, follow-up care, medications, Prescriptions given X 3. 13:09 Patient left the ED. [facility] Signatures: Dispatcher [employer] EDWA Ricky Chavis MD MD cha Attema, Lee RN RN la1 Roger Sosa RN RN jl7 Cece Jones 3 Stephanie Shelton 3 Freida Horta 2 Corrections: (The following items were deleted from the chart) 14:05 14:04 Response: No adverse reaction; IV Status: Completed infusion; IV Intake: 250ml [id number]
--- NOTE | 2019-05-04 12:16 | EDPHYS ---
Physician Documentation [facility] Name: Kelly Hill Age: 23 yrs Sex: Female : 1995 Arrival Date: 05/04/2019 Time: 10:28 Bed 14 Private MD: ED Physician Ricky Chavis HPI: 05/04 10:56 This 23 yrs old Female presents to ER via Ambulatory with complaints of sasha Shortness Of Breath - 15WKS PREG. 10:56 The patient has shortness of breath at rest, with light activity. Onset: The sasha symptoms/episode began/occurred just prior to arrival, this morning. Duration: The symptoms are continuous, and are unchanged since they started. The patient's shortness of breath has no apparent modifying factors. Associated signs and symptoms: The patient has no apparent associated signs or symptoms. Severity of symptoms: At their worst the symptoms were mild moderate in the emergency department the symptoms are unchanged. The patient has not experienced similar symptoms in the past. 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 - Social history:: Smoking status: Patient/guardian denies using tobacco. - Ebola Screening: : No symptoms or risks identified at this time. - Family history:: not pertinent. ROS: 10:56 Constitutional: Negative for fever, chills, and weight loss, Eyes: Negative for injury, sasha pain, redness, and discharge, ENT: Negative for injury, pain, and discharge, Neck: Negative for injury, pain, and swelling, Cardiovascular: Negative for chest pain, palpitations, and edema, Back: Negative for injury and pain, : Negative for injury, bleeding, discharge, and swelling, MS/Extremity: Negative for injury and deformity, Skin: Negative for injury, rash, and discoloration, Neuro: Negative for headache, weakness, numbness, tingling, and seizure, Psych: Negative for depression, anxiety, suicide ideation, homicidal ideation, and hallucinations, Allergy/Immunology: Negative for hives, rash, and allergies, Endocrine: Negative for neck swelling, polydipsia, polyuria, polyphagia, and marked weight changes, Hematologic/Lymphatic: Negative for swollen nodes, abnormal bleeding, and unusual bruising. 10:56 Respiratory: Positive for shortness of breath. 10:56 Abdomen/GI: Positive for abdominal distension. Exam: 10:56 Constitutional: This is a well developed, well nourished patient who is awake, alert, sasha and in no acute distress. Head/Face: Normocephalic, atraumatic. Eyes: Pupils equal round and reactive to light, extra-ocular motions intact. Lids and lashes normal. Conjunctiva and sclera are non-icteric and not injected. Cornea within normal limits. Periorbital areas with no swelling, redness, or edema. ENT: Nares patent. No nasal discharge, no septal abnormalities noted. Tympanic membranes are normal and external auditory canals are clear. Oropharynx with no redness, swelling, or masses, exudates, or evidence of obstruction, uvula midline. Mucous membranes moist. Neck: Trachea midline, no thyromegaly or masses palpated, and no cervical lymphadenopathy. Supple, full range of motion without nuchal rigidity, or vertebral point tenderness. No Meningismus. Chest/axilla: Normal chest wall appearance and motion. Nontender with no deformity. No lesions are appreciated. Cardiovascular: Regular rate and rhythm with a normal S1 and S2. No gallops, murmurs, or rubs. Normal PMI, no JVD. No pulse deficits. Back: No spinal tenderness. No costovertebral tenderness. Full range of motion. Skin: Warm, dry with normal turgor. Normal color with no rashes, no lesions, and no evidence of cellulitis. MS/ Extremity: Pulses equal, no cyanosis. Neurovascular intact. Full, normal range of motion. Neuro: Awake and alert, GCS 15, oriented to person, place, time, and situation. Cranial nerves II-XII grossly intact. Motor strength 5/5 in all extremities. Sensory grossly intact. Cerebellar exam normal. Normal gait. Psych: Awake, alert, with orientation to person, place and time. Behavior, mood, and affect are within normal limits. 10:56 Respiratory: the patient does not display signs of respiratory distress, Respirations: normal, Breath sounds: are clear throughout, no acute changes. 12:22 Musculoskeletal/extremity: DVT Exam: No signs of deep vein thrombosis. no pain, no sasha swelling, no tenderness, negative Homans' sign noted on exam, no appreciated bluish discoloration, no erythema, no increased warmth, no trauma, no stasis, no hc state. Vital Signs: 10:35 BP 118 / 81; Pulse 88; Resp 16; Temp 97.5; Pulse Ox 98% on R/A; Weight 81.65 kg; Height la1 5 ft. 4 in. (162.56 cm); 12:27 BP 145 / 65; Pulse 53; Resp 16 S; Pulse Ox 100% on R/A; jl7 10:35 Body Mass Index 30.90 (81.65 kg, 162.56 cm) la1 MDM: 10:38 Patient medically screened. [facility] 10:59 Data reviewed: vital signs, nurses notes, lab test result(s), EKG, radiologic studies, [facility] plain films. 05/04 10:56 Order name: Abo/rh Typing; Complete Time: 12:44 [facility] 05/04 10:56 Order name: Basic Metabolic Panel; Complete Time: 12:11 [facility] 05/04 10:56 Order name: CBC with Diff; Complete Time: 11:56 [facility] 05/04 10:56 Order name: D-Dimer; Complete Time: 12:11 [facility] 05/04 10:56 Order name: ABG: ON RA; Complete Time: 12:11 [facility] 05/04 11:47 Order name: Urine Dipstick--Ancillary (enter results) [facility] 05/04 10:56 Order name: IV Saline Lock; Complete Time: 11:56 [facility] 05/04 10:56 Order name: Labs collected and sent; Complete Time: 11:56 [facility] 05/04 10:56 Order name: EKG; Complete Time: 10:57 [facility] 05/04 10:56 Order name: Chest Single View XRAY; Complete Time: 11:43 [facility] 05/04 11:47 Order name: Urine --Ancillary (enter results) [facility] 05/04 10:56 Order name: NPO; Complete Time: 11:56 [facility] 05/04 10:56 Order name: Urine Dipstick-Ancillary (obtain specimen); Complete Time: 11:44 [facility] 05/04 10:56 Order name: EKG - Nurse/Tech; Complete Time: 11:55 [facility] 05/04 10:56 Order name: FHT's; Complete Time: 12:04 sasha Administered Medications: 11:30 Drug: NS 0.9% 500 ml Route: IV; Rate: bolus; Site: right antecubital; jl7 12:28 Follow up: IV Status: Completed infusion; IV Intake: 500ml jl7 11:46 Drug: Zofran 4 mg Route: IVP; Site: right antecubital; jl7 12:00 Follow up: Response: No adverse reaction; Nausea is decreased [facility] 11:56 Drug: NS 0.9% 1000 ml Route: IV; Rate: 125 ml/hr; Site: right antecubital; jl7 13:00 Follow up: Response: No adverse reaction; IV Status: Completed infusion; IV Intake: jl7 250ml Disposition: 05/04/19 12:14 Discharged to Home. Impression: Dyspnea, related exhaustion and fatigue, second trimester, Hyperventilation. - Condition is Stable. - Discharge Instructions: Hyperventilation, Shortness of Breath, Shortness of Breath, [id number], Fatigue. - Prescriptions for Vitamin 27- 0.8 mg Oral Tablet - take 1 tablet by ORAL route once daily; 30 tablet. Diclegis 10- 10 mg Oral tablet,delayed release (DR/EC) - take 1 tablet by ORAL route 3 times per day and 2 tablets at bedtime; 60 tablet. Zofran 4 mg Oral Tablet - take 1 tablet by ORAL route every 12 hours As needed; 20 tablet. - Work release form, Medication Reconciliation Form, Thank You Letter, Antibiotic Education, Prescription Opioid Use form. - Follow up: Private Physician; When: 2 - 3 days; Reason: Recheck today's complaints, Continuance of care, Re-evaluation by your physician. - Problem is new. - Symptoms have improved. Signatures: Dispatcher [employer] Ricky Cameron MD MD cha Attema, Lee RN RN la1 Roger Sosa RN RN jl7 Corrections: (The following items were deleted from the chart) 13:09 12:14 05/04/2019 12:14 Discharged to Home. Impression: Dyspnea; related jl7 exhaustion and fatigue, second trimester; Hyperventilation. Condition is Stable. Forms are Medication Reconciliation Form, Thank You Letter, Antibiotic Education, Prescription Opioid Use. Follow up: Private Physician; When: 2 - 3 days; Reason: Recheck today's complaints, Continuance of care, Re-evaluation by your physician. Problem is new. Symptoms have improved. sasha
[2019-05-04 13:24] LABS: Urine Blood NEGATIVE (NEG); Urine Glucose NEGATIVE (NEG); Urine Protein NEGATIVE (NEG); Urine pH 8.5 (5.0-7.0)
[2019-05-04 13:26] VITALS: TEMP 97.5
[2019-05-04 13:27] VITALS: BP 145/65; O2SAT 100
--- NOTE | 2019-05-04 13:48 | EKG ---
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
== END 2019-05-04 13:09 | disposition home or self-care (01) ==
LOC: ER 10:26
DX: O26.812 Pregnancy related exhaustion and fatigue, second trimester (principal); R06.4 Hyperventilation; R06.00 Dyspnea, unspecified; Z3A.15 15 weeks gestation of pregnancy
CPT/HCPCS: 36415; 71045; 80048; 81003; 81025; 82805; 85025; 85379; 86900; 86901; 93005; 96361; 96374; 99284; J2405; J7030

== ENCOUNTER 2020-03-08 07:41 | Emergency (ER) | payer SELFPAY ==
--- OUTSIDE RECORDS SUMMARY | 2020-03-08 07:49 | XMS REPORT | Continuity of Care Document ---
:1995 Author Organization [facility] t Address [address] [place] [address] Care Team Providers Name Role Phone Rober Drew MD Attending Clinician Doctor Unassigned, Name Attending Clinician Unavailable Problems This patient has no known problems. Allergies, Adverse Reactions, Alerts This patient has no known allergies or adverse reactions. Medications This patient has no known medications. Procedures This patient has no known procedures. Encounters Start End Encounter Admission Attending Care Care Encounter Source Date/Time Date/Time Type Type Clinicians Facility Department ID 2020-01-09 2020-01-09 Telephone Libertad Drew [id number] 00:00:00 00:00:00 Rober Moreno [id number] [place] [id number] [facility] [id number] [address] 2019-12-04 2019-12-04 Telephone Libertad Drew [id number] 00:00:00 00:00:00 Rober Moreno [id number] [place] [id number] [facility] [id number] [address] 2019-12-04 2019-12-04 Orders Doctor GUO [id number] 00:00:00 00:00:00 Only UnassignedJAMILA [id number] [place] [facility] [id number] 2019-11-21 2019-11-21 Telephone Libertad Drew [id number] 00:00:00 00:00:00 Rober Moreno [id number] [place] [id number] [facility] [phone] [facility] Results This patient has no known results.
--- OUTSIDE RECORDS SUMMARY | 2020-03-08 07:50 | XMS REPORT | Summary of Care ---
:1995 Author Organization [facility] Address [address] [place] [address] Care Team Providers Name Role Phone Rober Drew MD Primary Care Provider Tisha Umanzor Insurance Hmo Reason for Visit Reason Comments Appointment IUD insertion Encounter Details Date Type Department Care Team Description 01/09/2020 Telephone [facility] Libertad Drew MD Appointment ([facility]- [address] insertion) [address] [place] [address] [address] [facility] [address] [place], [place] [id number] [phone] Allergies No Known Allergiesdocumented as of this encounter (statuses as of 01/09/2020) Medications Medication Sig Dispensed Refills Start Date End Date Status Take 1 capsule by 30 capsule 6 06/22/2019 Active no.44-iron,car-FA-dh mouth daily. a (PRENATE MINI) 29 mg iron-1 mg -350 mg Cap docusate calcium 240 Take 1 capsule by 20 capsule 0 10/27/2019 Active mg mouth 2 (two) times capsuleIndications: daily as needed for Liveborn , of Constipation. garcia , born in hospital by vaginal delivery ibuprofen 600 mg Take 1 tablet by 30 tablet 0 10/27/2019 Active tabletIndications: mouth every 6 (six) Liveborn , of hours as needed for garcia , Pain (scale 4-6). born in hospital by vaginal delivery ferrous sulfate 325 Take 1 tablet by 60 tablet 2 10/27/2019 Active mg (65 mg iron) mouth 2 (two) times tabletIndications: daily. Liveborn , of garcia , born in hospital by vaginal delivery miSOPROStol 200 mcg Take one tablet 2 tablet 0 11/16/2019 Active tabletIndications: night before Counseling for procedure, then control regarding take one tablet intrauterine device morning of (IUD) procedure NUVARING 0.12-0.015 Insert 1 Each into 3 Each 4 12/04/2019 Active mg/24 hr vaginal vagina once every insert month. Insert vaginally and leave in place for 3 consecutive weeks, then remove for 1 week. documented as of this encounter (statuses as of 01/09/2020) Active Problems Problem Noted Date Liveborn , of garcia , born in [facility] by vaginal 10/26/2019 delivery 39 weeks gestation of 10/25/2019 Encounter for elective induction of labor 10/25/2019 Positive GBS test 10/06/2019 Encounter for supervision of normal first in third trimester 10/06/2019 Excessive weight gain during in third trimes ter 10/06/2019 Obesity (BMI 30-39.9) 06/22/2019 documented as of this encounter (statuses as of 01/09/2020) Resolved Problems Problem Noted Date Resolved Date Third trimester 08/30/2019 10/06/2019 38 weeks gestation of 08/30/2019 10/25/19 20 Vagina itching 08/30/2019 10/06/2019 Vaginal discharge 08/30/2019 10/06/2019 Need for Tdap vaccination 08/30/2019 10/25/2019 Dry skin 08/30/2019 10/25/2019 Abdominal pain affecting 06/17/201908/30 Nausea and vomiting during prior to 22 weeks 06/1708/30/2019 gestation 20 weeks gestation of 06/17/2019 08/30/20 19 documented as of this encounter (statuses as of 01/09/2020) Immunizations Name Administration Dates Next Due TDAP (ADACEL) VACCINE 08/29/2019 08/29/2029 documented as of this encounter Social History Tobacco Use Types Packs/Day Years Used Date Never Smoker Smokeless Tobacco: Former User Q uit: 2016 Alcohol Use Drinks/Week oz/Week Comments Not Currently Sex Assigned at Date Recorded Not on file Job Start Date Occupation Industry Not on file Not on file Not on file Travel History Travel Start Travel End No recent travel history available. documented as of this encounter Last Filed Vital Signs Not on filedocumented in this encounter Plan of Treatment Health Maintenance Due Date Last Done Comments VARICELLA VACCINES (1 of 2 1998 - 2-dose childhood series) MENINGOCOCCAL B VACCINES (1 2007 of 2 - Risk Bexsero 2-dose series) HPV VACCINES (1 - Female 2008 2-dose series) INFLUENZA VACCINE (#1) 2020 Postponed from 05/14/2019 (Refu sed) CHLAMYDIA SCREENING 10/14/2020 10/14/2019, 10/05/2019, 10/02/2019, Additional history exists PAP SMEAR 03/28/2022 03/28/2019 DTaP,Tdap,and Td Vaccines 08/29/2029 08/29/2019 (2 - Td) MENINGOCOCCAL VACCINE Aged Out No longer eligible based on patient 's age to complete this topic PNEUMOCOCCAL 0-64 YEARS Aged Out No longe r eligible COMBINED SERIES based on patient 's age to complete this topic documented as of this encounter Results Not on filedocumented in this encounter Insurance Payer Benefit Plan Subscriber ID Effective Phone Address Typ e / Group Dates [place] BCBS OF [id number] 2018-Pres [phone] [address] PPO/POS [place] - OUT [place] [id number] [place] [address] [facility] xxxxxxxxx 2019-[place] Medic aid HEALTHCARE COMM STAR nt PLAN - MANAGED MEDICAID documented as of this encounter
--- OUTSIDE RECORDS SUMMARY | 2020-03-08 07:50 | XMS REPORT | Summary of Care ---
:1995 Author Organization [facility] [[email or web address]] - Health Address [address] [place] [address] Care Team Providers Name Role Phone Rober Drew MD Primary Care Provider Tisha Umanzor Insurance Hmo Encounter Details Date Type Department Care Team Description 12/04/2019 Orders Only [facility] [[email or web address]] Doctor Unassigned, No [address] [facility] [place] [address] [address] [place] [address] Allergies No Known Allergiesdocumented as of this encounter (statuses as of 12/11/2019) Medications Medication Sig Dispensed Refills Start Date [...] mouth 2 (two) times tabletIndications: daily. Liveborn infant, of garcia , born in hospital by [...] as of this encounter (statuses as of 12/11/2019) Active Problems Problem Noted Date Liveborn infant, of garcia , born in [facility] by vaginal 10/26/2019 delivery 39 weeks gestation of 10/25/2019 Encounter for elective induction of labor 10/25/2019 Positive GBS test 10/06/2019 Encounter for supervision of normal first in third trimester 10/06/2019 Excessive weight gain during in third trimes ter 10/06/2019 Obesity (BMI 30-39.9) 06/22/2019 documented as of this encounter (statuses as of 12/11/2019) Resolved Problems Problem Noted Date Resolved Date [...] as of this encounter (statuses as of 12/11/2019) Immunizations Name Administration Dates Next Due TDAP [...] this topic documented as of this encounter Procedures Procedure Name Priority Date/Time Associated Diagnosis Comme nts CONSENT FOR CONTRACEPTION Routine 12/04/2019 12:01 AM CDT documented in this encounter Results Not on filedocumented in this encounter Insurance Payer Benefit Plan Subscriber ID Effective Phone Address Typ e / Group Dates [place] BCBS OF [id number] 2018-Pres [phone] [address] PPO/POS [place] - OUT ent [id number] [place] [address] [facility] xxxxxxxxx 2019-Prese Medic aid HEALTHCARE COMM STAR nt PLAN - MANAGED MEDICAID documented as of this encounter
--- NOTE | 2020-03-08 08:31 | ER ---
Nurse's Notes [facility] Name: Kelly Hill Age: 24 yrs Sex: Female : 1995 Arrival Date: 03/08/2020 Time: 07:43 Bed 14 Private MD: Diagnosis: Periapical abscess without sinus Presentation: 03/08 07:55 Chief complaint: Patient states: my gums have been swollen X 4 days and now feels a iw hard area under on left side of neck, no fever denies sore throat , has a wisdom tooth that has grown in on left side. Coronavirus screen: Proceed with normal triage. Patient denies a cough. Patient denies shortness of breath or difficulty breathing. Patient denies measured and/or subjective temperature greater than 100.4F prior to today's visit. Patient denies travel on a cruise ship or to a country the [facility] currently lists as an affected area. Patient denies contact with known and/or suspected case of COVID-19. Ebola Screen: Patient negative for fever greater than or equal to 101.5 degrees Fahrenheit, and additional compatible Ebola Virus Disease symptoms Patient denies exposure to infectious person. Patient denies travel to an Ebola-affected area in the 21 days before illness onset. No symptoms or risks identified at this time. Initial Sepsis Screen: Does the patient meet any 2 criteria? No. Patient's initial sepsis screen is negative. Does the patient have a suspected source of infection? No. Patient's initial sepsis screen is negative. Risk Assessment: Do you want to hurt yourself or someone else? Patient reports no desire to harm self or others. Onset of symptoms was March 04, 2020. 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 - Social history:: Smoking status: Patient denies any tobacco usage or history of. Screenin:32 Abuse screen: Denies threats or abuse. Denies injuries from another. Nutritional jl7 screening: No deficits noted. Tuberculosis screening: No symptoms or risk factors identified. Fall Risk None identified. Assessment: 08:32 General: Appears in no apparent distress. uncomfortable, Behavior is calm, cooperative, jl7 appropriate for age. Pain: Complains of pain in left jaw Pain currently is 5 out of 10 on a pain scale. Pain began x 5 days Is continuous. Neuro: Level of Consciousness is awake, alert, obeys commands, Oriented to person, place, time, situation. Cardiovascular: Patient's skin is warm and dry. Respiratory: Airway is patent Respiratory effort is even, unlabored, Respiratory pattern is regular, symmetrical. Derm: Skin is pink, warm \T\ dry. Vital Signs: 07:55 BP 123 / 59; Pulse 82; Resp 16; Temp 97.2; Pulse Ox 98% on R/A; Weight 86.18 kg; Height iw 5 ft. 5 in. (165.10 cm); Pain 5/10; 07:55 Body Mass Index 31.62 (86.18 kg, 165.10 cm) iw ED Course: 07:43 Patient arrived in ED. as 07:46 Batsheva Weir F[facility]-C [facility]. snw 07:46 Ricky Chavis MD is Attending Physician. snw 07:58 Triage completed. iw 07:58 Arm band placed on. iw 08:26 Roger Sosa, MARTA is Primary Nurse. jl7 08:32 Patient has correct armband on for positive identification. Bed in low position. Call jl7 light in reach. Side rails up X 1. Pulse ox on. NIBP on. 08:32 No provider procedures requiring assistance completed. Patient did not have IV access jl7 during this emergency room visit. Administered Medications: 08:32 Drug: Clindamycin 300 mg Route: PO; jl7 08:45 Follow up: Response: No adverse reaction jl7 08:32 Drug: [place] 5 mg-325 mg 1 tabs Route: PO; jl7 08:45 Follow up: Response: No adverse reaction jl7 Outcome: 08:31 Discharge ordered by . snw 08:45 Discharged to home ambulatory, with family. jl7 08:45 Condition: stable 08:45 Discharge instructions given to patient, family, Instructed on discharge instructions, follow up and referral plans. medication usage. 08:48 Patient left the ED. jl7 Signatures: Batsheva Weir, LOADING DOCK HELPER-C LOADING DOCK HELPER-Csnw Bell Childress as Lucero Cyr RN RN iw Roger Sosa RN RN jl7 Corrections: (The following items were deleted from the chart) 09:22 09:21 Patient left the ED. jl7 jl7
--- NOTE | 2020-03-08 08:32 | EDPHYS ---
Physician Documentation [facility] Name: Kelly Hill Age: 24 yrs Sex: Female : 1995 Arrival Date: 03/08/2020 Time: 07:43 Bed 14 Private MD: ED Physician Ricky Chavis HPI: 03/08 08:27 This 24 yrs old Female presents to ER via Ambulatory with complaints of Jaw snw Pain - swollen gums. 08:27 Onset: The symptoms/episode began/occurred suddenly. Associated signs and symptoms: snw Pertinent positives: tenderness and edema of face. The patient has not experienced similar symptoms in the past. The patient has not recently seen a physician. no dentist. 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 - Social history:: Smoking status: Patient denies any tobacco usage or history of. ROS: 08:28 Constitutional: Negative for fever, chills, and weight loss, Eyes: Negative for injury, snw pain, redness, and discharge, ENT: Negative for injury, pain, and discharge, pain and swelling to lower jaw. left 2nd mandibular molar Neck: Negative for injury, pain, and swelling, Cardiovascular: Negative for chest pain, palpitations, and edema, Respiratory: Negative for shortness of breath, cough, wheezing, and pleuritic chest pain, Abdomen/GI: Negative for abdominal pain, nausea, vomiting, diarrhea, and constipation, Back: Negative for injury and pain, : Negative for injury, bleeding, discharge, and swelling, MS/Extremity: Negative for injury and deformity, Skin: Negative for injury, rash, and discoloration, Neuro: Negative for headache, weakness, numbness, tingling, and seizure. Exam: 08:26 Constitutional: This is a well developed, well nourished patient who is awake, alert, snw and in no acute distress. Head/Face: Normocephalic, atraumatic. edema to left face Eyes: Pupils equal round and reactive to light, extra-ocular motions intact. Lids and lashes normal. Conjunctiva and sclera are non-icteric and not injected. Cornea within normal limits. Periorbital areas with no swelling, redness, or edema. ENT: Nares patent. No nasal discharge, no septal abnormalities noted. Tympanic membranes are normal and external auditory canals are clear. Oropharynx with no redness, swelling, or masses, exudates, or evidence of obstruction, uvula midline. Mucous membranes moist. Left lower 2nd molar with tenderness, gum edema, tenderness 08:26 Chest/axilla: Normal chest wall appearance and motion. Nontender with no deformity. No lesions are appreciated. Cardiovascular: Regular rate and rhythm with a normal S1 and S2. No gallops, murmurs, or rubs. Normal PMI, no JVD. No pulse deficits. Respiratory: Lungs have equal breath sounds bilaterally, clear to auscultation and percussion. No rales, rhonchi or wheezes noted. No increased work of breathing, no retractions or nasal flaring. Abdomen/GI: Soft, non-tender, with normal bowel sounds. No distension or tympany. No guarding or rebound. No evidence of tenderness throughout. Back: No spinal tenderness. No costovertebral tenderness. Full range of motion. Skin: Warm, dry with normal turgor. Normal color with no rashes, no lesions, and no evidence of cellulitis. MS/ Extremity: Pulses equal, no cyanosis. Neurovascular intact. Full, normal range of motion. Neuro: Awake and alert, GCS 15, oriented to person, place, time, and situation. Cranial nerves II-XII grossly intact. Motor strength 5/5 in all extremities. Sensory grossly intact. Cerebellar exam normal. Normal gait. Psych: Awake, alert, with orientation to person, place and time. Behavior, mood, and affect are within normal limits. 08:26 Neck: Lymph nodes: tenderness to submandibular lymph nodes. Vital Signs: 07:55 BP 123 / 59; Pulse 82; Resp 16; Temp 97.2; Pulse Ox 98% on R/A; Weight 86.18 kg; Height iw 5 ft. 5 in. (165.10 cm); Pain 5/10; 07:55 Body Mass Index 31.62 (86.18 kg, 165.10 cm) iw MDM: 08:13 Patient medically screened. [facility] 08:29 Data reviewed: vital signs, nurses notes. Data interpreted: Pulse oximetry: on room air snw is 98 %. Interpretation: normal. Counseling: I had a detailed discussion with the patient and/or guardian regarding: the historical points, exam findings, and any diagnostic results supporting the discharge/admit diagnosis, the need for outpatient follow up, to return to the emergency department if symptoms worsen or persist or if there are any questions or concerns that arise at home. Special discussion: Based on the history and exam findings, there is no indication for further emergent testing or inpatient evaluation. I discussed with the patient/guardian the need to see a dentist for further evaluation of the symptoms. Administered Medications: 08:32 Drug: Clindamycin 300 mg Route: PO; jl7 08:45 Follow up: Response: No adverse reaction [facility] 08:32 Drug: [place] 5 mg-325 mg 1 tabs Route: PO; jl7 08:45 Follow up: Response: No adverse reaction [facility] Disposition: 10:54 Co-signature as Attending Physician, Ricky Chavis MD I agree with the assessment and [facility] plan of care. Disposition: 03/08/20 08:31 Discharged to Home. Impression: Periapical abscess without sinus. - Condition is Stable. - Discharge Instructions: Dental Abscess, Dental Pain, Root Canal, Diet and Dental Disease. - Prescriptions for chlorhexidine gluconate 0.12 % Mucous Membrane mouthwash - place 15 milliliter by MUCOUS MEMBRANE route 2 times per day after brushing teeth, swish in mouth for 30 seconds then spit out; 480 milliliter. Clindamycin HCl 150 mg Oral Capsule - take 1 capsule by ORAL route every 6 hours for 10 days; 40 capsule. Mobic 7.5 mg Oral Tablet - take 1 tablet by ORAL route once daily take with food; 20 tablet. - Medication Reconciliation Form, Thank You Letter, Antibiotic Education, Prescription Opioid Use, Work release form form. - Follow up: Emergency Department; When: As needed; Reason: Worsening of condition. Follow up: Private Physician; When: 1 - 2 days; Reason: Recheck today's complaints, Continuance of care, Re-evaluation by your physician. Signatures: Ricky Chavis MD MD cha Therrien, Shelly, CARTRIDGE ASSEMBLING MACHINE ADJUSTER-C CARTRIDGE ASSEMBLING MACHINE ADJUSTER-Csnw Ger, Lucero, RN RN iw Sosa, Jahala, RN RN jl7 Corrections: (The following items were deleted from the chart) 09:21 08:31 03/08/2020 08:31 Discharged to Home. Impression: Periapical abscess without jl7 sinus. Condition is Stable. Forms are Medication Reconciliation Form, Thank You Letter, Antibiotic Education, Prescription Opioid Use. Follow up: Emergency Department; When: As needed; Reason: Worsening of condition. Follow up: Private Physician; When: 1 - 2 days; Reason: Recheck today's complaints, Continuance of care, Re-evaluation by your physician. snw
[2020-03-08] MEDS ORDERED: HYDROCODONE/APAP 5/325 MG TAB ONE (08:37)
[2020-03-08 09:59] VITALS: BP 123/59; TEMP 97.2; O2SAT 98
== END 2020-03-08 09:21 | disposition home or self-care (01) ==
LOC: ER 07:41
DX: K04.7 Periapical abscess without sinus (principal)
CPT/HCPCS: 99283

== ENCOUNTER 2020-08-10 11:20 | Emergency (ER) | payer OTHER ==
--- OUTSIDE RECORDS SUMMARY | 2020-08-10 11:22 | XMS REPORT | Continuity of Care Document ---
:1995 Author Organization [facility] Address [address] [place] [address] Care Team Providers Name Role Phone Rajendra HOUSE, Rober Attending Clinician Doctor Unassigned, Name Attending Clinician Unavailable Problems This patient has no known problems. Allergies, Adverse Reactions, Alerts This patient has no known allergies or adverse reactions. Medications This patient has no known medications. Procedures This patient has no known procedures. Encounters Start End Encounter Admission Attending Care Care Encounter Source Date/Time Date/Time Type Type Clinicians Facility Department ID 2020-03-08 2020-03-08 Refill Libertad Drew [id number] 00:00:00 00:00:00 Rober Moreno [id number] [place] [id number] Professio [phone] [address] 2020-01-09 2020-01-09 Telephone Libertad Drew [id number] 00:00:00 00:00:00 Rober Moreno [id number] [place] [id number] Professio [phone] [address] 2019-12-04 2019-12-04 Telephone Libertad Drew [id number] 00:00:00 00:00:00 [place] [id number] [place] [id number] Professio [phone] [address] 2019-12-04 2019-12-04 Orders Doctor GUO [id number] 00:00:00 00:00:00 Only Unassigned, JAMILA [id number] [place] [facility] [id number] [id number] 2019-11-21 2019-11-21 Telephone Liberatd Drew [facility] [id number] 00:00:00 00:00:00 Rober Moreno [id number] [place] [id number] [facility] [phone] [facility] 134 [facility] Results This patient has no known results.
--- NOTE | 2020-08-10 15:00 | RAD REPORT ---
EXAM DESCRIPTION: RAD - Ankle Left 3 View - 08/10/2020 2:36 pm CLINICAL HISTORY: ankle pain COMPARISON: No comparisons FINDINGS: No acute fracture or dislocation is seen. Mild thickening is seen in the region of the dis sidney Achilles tendon.
--- NOTE | 2020-08-10 15:32 | EDPHYS ---
Physician Documentation [facility] Name: Kelly Hill Age: 24 yrs Sex: Female : 1995 Arrival Date: 08/10/2020 Time: : Bed 17 Private MD: ED Physician Robbie Jensen HPI: 08/10 13:07 This 24 yrs old Female presents to ER via Ambulatory with complaints of Ankle jmm Pain. 13:07 The patient presents with pain. Onset: The symptoms/episode began/occurred gradually. jmm Associated signs and symptoms: Pertinent negatives: calf tenderness, fever. Modifying factors: The symptoms are alleviated by nothing, the symptoms are aggravated by weight bearing, movement. This is a 24 year old female with no chronic medical conditions that presents to the ED with complaints of achilles tendon pain. Patient states having two surgeries to loosen the ligament during her teens. Denies injury but states around October developing pain. Patient states she has not been to a specialist due to lack of insurance. . 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 - Social history:: Smoking status: Patient denies any tobacco usage or history of. ROS: 13:07 Constitutional: Negative for fever, chills, and weight loss, Cardiovascular: Negative jmm for chest pain, palpitations, and edema, Respiratory: Negative for shortness of breath, cough, wheezing, and pleuritic chest pain. 13:07 MS/extremity: Positive for pain. 13:07 All other systems are negative. Exam: 13:07 Constitutional: This is a well developed, well nourished patient who is awake, alert, jmm and in no acute distress. Head/Face: atraumatic. Eyes: EOMI, no conjunctival erythema appreciated ENT: Moist Mucus Membranes Neck: Trachea midline, Supple Chest/axilla: Normal chest wall appearance and motion. Cardiovascular: Regular rate and rhythm. No edema appreciated Respiratory: Normal respirations, no respiratory distress appreciated Abdomen/GI: Non distended, soft Back: Normal ROM Skin: General appearance color normal 13:07 Musculoskeletal/extremity: pain elicited on palpation of the left achilles tendon, Espinoza test reveals plantaflexion. 13:07 Skin: Appearance: Color: normal in color. 13:07 Neuro: Orientation: is normal, Mentation: is normal, Memory: is normal. 13:07 Psych: Behavior/mood is pleasant, cooperative. Vital Signs: 11:51 BP 115 / 72; Pulse 86; Resp 16 S; Temp 97.2(TE); Pulse Ox 99% on R/A; Weight 92.53 kg ca1 (R); Height 5 ft. 4 in. (162.56 cm) (R); Pain 6/10; 11:51 Body Mass Index 35.02 (92.53 kg, 162.56 cm) ca1 MDM: 13:07 Patient medically screened. liliana 15:29 Data reviewed: vital signs, nurses notes. Counseling: I had a detailed discussion with liliana the patient and/or guardian regarding: the historical points, exam findings, and any diagnostic results supporting the discharge/admit diagnosis, radiology results, the need for outpatient follow up, to return to the emergency department if symptoms worsen or persist or if there are any questions or concerns that arise at home. ED course: Most likely tendonitis. Patient advised to follow up with orthopedics and otherwise given strict return precautions. Patient understood and agrees with the plan of care. . 08/10 14:09 Order name: Ankle Left 3 View; Complete Time: 15:24 EDMS Administered Medications: No medications were administered Disposition: 16:01 Co-signature as Attending Physician, Robbie Jensen MD. rn Disposition: 08/10/20 15:31 Discharged to Home. Impression: Achilles tendinitis, left leg. - Condition is Stable. - Discharge Instructions: Achilles Tendinitis, RICE for Routine Care of Injuries, Heat Therapy. - Prescriptions for Ibuprofen 800 mg Oral Tablet - take 1 tablet by ORAL route every 8 hours As needed take with food; 30 tablet. - Thank You Letter, Antibiotic Education, Prescription Opioid Use, Work release form form. - Follow up: Private Physician; When: 2 - 3 days; Reason: Recheck today's complaints, Continuance of care, Re-evaluation by your physician. Signatures: Dispatcher [employer] EDMS Rupesh Bhagat PA PA jmm Nieto, Roman, MD MD rn Baxter, Lash[place], RN RN Acob, Pat RN RN ca1 Corrections: (The following items were deleted from the chart) 14:09 13:19 Ankle Right 3 View+RAD.RAD.BRZ ordered. EDMS EDMS 15:42 15:31 08/10/2020 15:31 Discharged to Home. Impression: Achilles tendinitis, left leg. hb Condition is Stable. Forms are Medication Reconciliation Form, Thank You Letter, Antibiotic Education, Prescription Opioid Use. Follow up: Private Physician; When: 2 - 3 days; Reason: Recheck today's complaints, Continuance of care, Re-evaluation by your physician. jmm
--- NOTE | 2020-08-10 15:32 | ER ---
Nurse's Notes [facility] Name: Kelly Hill Age: 24 yrs Sex: Female : 1995 Arrival Date: 08/10/2020 Time: :22 Bed 17 Private MD: Diagnosis: Achilles tendinitis, left leg Presentation: 08/10 11:51 Chief complaint: Patient states: I think I have a ruptured Achilles tendon. I've had 2 ca1 Achilles tendon surgery in the past. I noticed lump on the back of my L ankle since October. It gets worse and am hurting on my L calf now. It gets worse when I stand for a long time. Then pain has been worse for the last 3 days. Denies any recent ankle injury. Coronavirus screen: Client denies travel out of the [place] in the last 14 days. At this time, the client does not indicate any symptoms associated with coronavirus-19. Ebola Screen: Patient negative for fever greater than or equal to 101.5 degrees Fahrenheit, and additional compatible Ebola Virus Disease symptoms Patient denies exposure to infectious person. Patient denies travel to an Ebola-affected area in the 21 days before illness onset. No symptoms or risks identified at this time. Initial Sepsis Screen: Does the patient meet any 2 criteria? No. Patient's initial sepsis screen is negative. Does the patient have a suspected source of infection? No. Patient's initial sepsis screen is negative. Risk Assessment: Do you want to hurt yourself or someone else? Patient reports no desire to harm self or others. Onset of symptoms was August 10, 2020. 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 - Social history:: Smoking status: Patient denies any tobacco usage or history of. Screenin:00 Abuse screen: Denies threats or abuse. Denies injuries from another. Nutritional ca1 screening: No deficits noted. Tuberculosis screening: No symptoms or risk factors identified. Fall Risk IV access (20 points). Assessment: 14:00 General: Appears in no apparent distress. comfortable, Behavior is calm, cooperative, ca1 appropriate for age. Pain: Complains of pain in left lateral ankle, left Achilles, left medial ankle and anterior aspect of left ankle Pain currently is 0 out of 10 on a pain scale. at worst was 6 out of 10 on a pain scale. Neuro: Level of Consciousness is awake, alert, obeys commands, Oriented to person, place, time, situation. Derm: Skin is intact, is healthy with good turgor, Skin is pink, warm \T\ dry. Musculoskeletal: Circulation, motion, and sensation intact. Capillary refill < 3 seconds. 15:42 Reassessment: Patient appears in no apparent distress at this time. Patient and/or hb family updated on plan of care and expected duration. Pain level reassessed. Patient is alert, oriented x 3, equal unlabored respirations, skin warm/dry/pink. Vital Signs: 11:51 BP 115 / 72; Pulse 86; Resp 16 S; Temp 97.2(TE); Pulse Ox 99% on R/A; Weight 92.53 kg ca1 (R); Height 5 ft. 4 in. (162.56 cm) (R); Pain 6/10; 11:51 Body Mass Index 35.02 (92.53 kg, 162.56 cm) ca1 ED Course: 11:22 Patient arrived in ED. as 11:55 Triage completed. ca1 11:56 Arm band placed on right wrist. ca1 13:05 Rupesh Bhagat PA is PHCP. [facility] 13:06 Robbie Jensen MD is Attending Physician. [facility] 13:12 Nimco Pierce, RN is Primary Nurse. rb3 14:00 Patient has correct armband on for positive identification. Bed in low position. Call ca1 light in reach. Side rails up X 1. Pulse ox on. NIBP on. Warm blanket given. 14:00 No provider procedures requiring assistance completed. Patient did not have IV access ca1 during this emergency room visit. 14:36 Ankle Left 3 View In Process Unspecified. EDMS 15:04 Primary Nurse role handed off by Nimco Pierce, MARTA ca1 15:04 Pat Morton RN is Primary Nurse. ca1 Administered Medications: No medications were administered Outcome: 15:31 Discharge ordered by . liliana 15:42 Discharged to home ambulatory, with family. 15:42 Condition: stable 15:42 Discharge instructions given to patient, family, Instructed on discharge instructions, follow up and referral plans. medication usage, Demonstrated understanding of instructions, follow-up care, medications, Prescriptions given X 1. 15:42 Patient left the ED. Signatures: Dispatcher [employer] EDMS Rupesh Bhagat PA PA jmm Martinez, Amelia as Baxter, Heather RN RN Pat Morton RN RN ca1 Nimco Pierce RN RN rb3 Corrections: (The following items were deleted from the chart) 11:57 11:51 Chief complaint: Patient states: I think I have a ruptured Achilles tendon. I've ca1 had 2 Achilles tendon surgery in the past. I noticed lump on the back of my L ankle since October. It gets worse and am hurting on my L calf now. It gets worse when I stand for a long time. Then pain has been worse for the last 3 days. ca1
[2020-08-10 18:41] VITALS: BP 115/72; TEMP 97.2; O2SAT 99
== END 2020-08-10 15:42 | disposition home or self-care (01) ==
LOC: ER 11:20
DX: M76.62 Achilles tendinitis, left leg (principal)
CPT/HCPCS: 99283

== ENCOUNTER 2022-02-21 00:38 | Emergency (ER) | payer OTHER ==
--- OUTSIDE RECORDS SUMMARY | 2022-02-21 00:41 | XMS REPORT | Continuity of Care Document ---
:1995 Author Organization [facility] [place] [facility] t Address [address] [place] [address] Care Team Providers Name Role Phone ZOEY FERREIRA Primary Care Physician Unavailable JESSE Attending Clinician Unavailable Jesse HOUSE Attending Clinician Zoey Ferreira MD Attending Clinician Doctor Unassigned, Name Attending Clinician Unavailable TAYLOR Attending Clinician Unavailable ZOEY FERREIRA Attending Clinician Unavailable Yahir CHANDLER Attending Clinician YAHIR Attending Clinician Unavailable Clarke FERNANDEZ Attending Clinician Unavailable Yan OJEDA Attending Clinician Unavailable JESSE Admitting Clinician Unavailable ZOEY FERREIRA Admitting Clinician Unavailable Payers Payer Name Policy Type Policy Number Effective Date Expiration Date [facility] [id number] 2020 PPO 00:00:00 [facility] [id number] 2019 00:00:00 BCBS [facility] [id number] 2018 [facility] 00:00:00 Problems Condition Condition Condition Status Onset Resolution Last Treating Co mments Source Name Details Category Date Date Treatment Clinician Date Pelvic Pelvic Disease Active Univers pain pain 9-02 ity of 00:00: [address] Nexplanon Nexplanon Disease Active Uni vers in place in place 7-27 ity of 00:00: [address] Obesity Obesity Disease Active 2018-09 Univers (BMI (BMI 0-10 ity of 30-39.9) 30-39.9) 00:00: [place] 00 [facility] Allergies, Adverse Reactions, Alerts Allergy Allergy Status Severity Reaction(s) Onset Inactive Treating Comm ents Source Name Type Date Date Clinician NO KNOWN Drug Active Univers ALLERGIE Class ity of S [facility] Social History Social Habit Start Date Stop Date Quantity Comments Source History of User of smokeless Univers ity of tobacco use tobacco [facility] Exposure to Not sure [facility] SARS-CoV-2 [facility] (event) Branch Alcohol intake 2021-05-15 2021-05-15 Ex-drinker [facility] 00:00:00 00:00:00 (finding) [facility] Tobacco use and 2019-06-17 2019-06-17 Former user Universi ty of exposure 00:00:00 00:00:00 [facility] Sex Assigned At [birth year] Universit y of 00:00:00 00:00:00 [facility] Smoking Status Start Date Stop Date Source Never smoker [facility] Medications Ordered Filled Start Stop Current Ordering Indication Dosage Frequency Signature Comments Components Source Medication Medication Date Date Medication? Clinician (SIG) Name Name ondansetron 2021- No 4mg 4 mg, Slow Univers (ZOFRAN 11-2818 IV Push, ity of (PF)) 21:30: 20:43 ONCE, 1 [place] injection 4 00 :00 dose, On Medi lani mg Fri Branch 11/28/21 at 1630, NAIMA morpHINE 2021- No 4mg 4 mg, Slow Un maria m injection 4 11-2818 IV Push, ity of mg 21:30: 20:47 ONCE, 1 [place] 00 :00 dose, On Medical Fri Branch 11/28/21 at 1630, STAT ketorolac 2021- No 30mg 30 mg, Unive rs (TORADOL) 11-28-18 Slow IV ity of injection 21:30: 20:45 Push, [place] 30 mg 00 :00 ONCE, 1 Medical dose, On Branch 11/28/21 at 1630, NAIMA
Fa culty member approving Restricted medication : NERY ORTA ibuprofen Yes [id number] 800mg Take 1 U nivers 800 mg 3-18 tablet by ity of tablet 00:00: mouth [place] 00 every 8 Medical (eight) Branch hours. HYDROcodone 2021- Yes [id number] 1{tbl} Take 1 U nivers -acetaminop 3-18 - tablet by it y of hen 5-325 00:00: 04:59 mouth [place] mg tablet 00 :00 every 4 Medical (four) Branch hours as needed for Pain (scale 4-6) for up to 7 days. Indication s: acute pain No known No Univers medications 05-15 ity of 17:49: [address] No known No Univers medications 05-15 ity of 17:49: [address] No known No Univers medications [facility] Immunizations Ordered Filled Immunization Date Status Comments [facility] e Immunization Name Name TDAP (ADACEL) 2019-08-29 Completed [facility] VACCINE 00:00:00 [facility] TDAP (ADACEL) 2019-08-29 Completed [facility] VACCINE 00:00:00 [facility] TDAP (ADACEL) 2019-08-29 Completed [facility] VACCINE 00:00:00 [facility] TDAP (ADACEL) 2019-08-29 Completed [facility] VACCINE 00:00:00 [facility] Vital Signs Vital Name Observation Time Observation Value Comments Source Systolic blood 2021-11-28 22:15:00 115 mm[Hg] Univer sity [facility] Diastolic blood 2021-11-28 22:15:00 75 mm[Hg] Unive [facility] [place] Heart rate 2021-11-28 22:15:00 73 /min [facility] Respiratory rate 2021-11-28 22:15:00 18 /min General acute hospital Oxygen saturation in 2021-11-28 22:15:00 99 /min [facility] Arterial blood by [facility] Pulse oximetry Branch Body temperature 2021-11-28 19:34:00 37.06 Tessa [facility] acute hospital Body weight 2021-11-28 19:34:00 84.823 kg [facility] BMI 2021-11-28 19:34:00 31.60 kg/m2 [facility] Systolic blood 2021-05-15 21:49:00 119 mm[Hg] Univer sity [facility] Diastolic blood 2021-05-15 21:49:00 79 mm[facility]Hg[facility] 2021-05-15 21:49:00 80 /min [facility] Body temperature 2021-05-15 21:49:00 37 Tessa [facility] acute hospital Respiratory rate 2021-05-15 21:49:00 18 /min General acute hospital Body height 2021-05-15 21:49:00 163.8 cm [facility] Body weight 2021-05-15 21:49:00 84.823 kg [facility] BMI 2021-05-15 21:49:00 31.60 kg/m2 [facility] Procedures Procedure Date / Time Performed Performing Clinician Sourc e US OVARY TORSION 2021-11-28 21:48:37 Nery Orta [facility] URINALYSIS 2021-11-28 20:45:00 Jesse [facility] COMP. METABOLIC PANEL 2021-11-28 20:42:00 Nery Orta [facility] ([id number]) [facility] CBC WITH DIFF 2021-11-28 20:42:00 Nery Orta [facility] POCT TEST 2021-11-28 20:21:00 Nery Orta [facility] NOTICE OF PRIVACY 2021-11-28 19:25:22 Doctor Unassigned, No Univ [facility] PRACTICES Name [facility] CONSENT/REFUSAL FOR 2021-11-28 19:25:13 Doctor Unassigned, [facility] Name [facility] TREATMENT Encounters Start End Encounter Admission Attending Care Care Encounter Source Date/Time Date/Time Type Type Clinicians Facility Department ID 2021-11-28 2021-11-28 Emergency X HAN ORTA ERT [id number] Univers 14:36:00 17:20:00 NERY granger [facility] 2021-11-28 2021-11-28 Emergency HAN Orta [id number] Univers 14:36:00 17:20:00 Nery MORGAN [id number] i ty [facility] [id number] [facility] [id number] [facility] 084 Branch 2021-11-28 2021-11-28 Telephone Stacia Ferreira [facility] [id number] Univers 00:00:00 00:00:00 Zoey MORGAN [id number] i ty of [place] PROF[place] [id number] Az dical [address] 2021-11-28 2021-11-28 Orders Doctor SARI [id number] Univers 00:00:00 00:00:00 Only Unassigned, JAMILA 350.1.13.10 ity of [place] 4.2.7.2.686 [place] as [id number] [address] 2021-11-05 2021-11-05 Outpatient R TAYLOR [facility] [id number] Univers 10:00:00 10:00:00 PARVEZ [id number] ity [facility] 2021-11-05 2021-11-05 Outpatient R TAYLOR [facility] [id number] Univers 10:00:00 10:00:00 [facility] 2021-10-09 2021-10-09 Outpatient R HANNA [facility] [id number] Univers 10:30:00 10:30:00 [id number] ity [facility] 2021-10-09 2021-10-09 Outpatient R STACIA FERREIRA [facility] [id number] Univers 10:30:00 10:30:00 ity [facility] 2021-06-04 2021-06-04 Outpatient STACIA FERREIRA [facility] [id number] Univers 09:30:00 09:30:00 [id number] ity [facility] 2021-06-04 2021-06-04 Outpatient R HANNA STACIA [facility] [id number] Univers 09:30:00 09:30:00 ity [facility] 2021-05-21 2021-05-21 Outpatient R STACIA FERREIRA [facility] [id number] Univers 13:45:00 13:45:00 [id number] ity [facility] 2021-05-15 2021-05-15 Office Stacia Ferreira [facility] [id number] Univers 16:38:00 17:02:35 Visit [facility]ie [facility].13.10 [facility] 4.2.7.2.686 Jelly Villatoro [id number] [place] [address] Branch [facility] 2021-05-15 2021-05-15 Outpatient Laura OLIVEIRA [facility] [id number] Univers 16:15:00 16:15:00 ANGIE [id number] [facility] 2021-05-15 2021-05-15 Outpatient R YAHIR [facility] [id number] Univers 16:15:00 16:15:00 ANGIE [facility] 2021-04-08 2021-04-08 Outpatient STACIA RECINOS [facility] [id number] Univers 14:00:00 14:00:00 [id number] [facility] 2021-04-08 2021-04-08 Outpatient STACIA RECINOS [facility] [id number] Univers 14:00:00 14:00:[facility] 2021-03-24 2021-03-24 Outpatient Laura OLIVEIRA [facility] [id number] Univers 10:45:00 10:45:00 ANGIE [id number] [facility] 2021-03-24 2021-03-24 Outpatient Laura OLIVEIRA [facility] [id number] Univers 10:45:00 10:45:00 ANGIE [facility] 2020-11-01 2020-11-01 Outpatient Laura FERNANDEZ [facility] [id number] Univers 08:15:00 08:15:00 MARGARITA [id number] [facility] 2020-11-01 2020-11-01 Outpatient Laura FERNANDEZ [facility] [id number] Univers 08:15:00 08:15:00 MARGARITA [facility] 2020-10-03 2020-10-03 Outpatient Laura OJEDA [facility] [id number] Univers 13:15:00 13:15:00 MANUEL [id number] [facility] 2020-10-03 2020-10-03 Outpatient Laura OJEDA [facility] [id number] Univers 13:15:00 13:15:00 MANUEL ity [facility] 2020-09-25 2020-09-25 Outpatient R RUSTY [facility] [id number] Univers 00:00:00 00:00:00 [facility]EL [id number] [facility] 2020-09-25 2020-09-25 Outpatient Laura OJEDA [facility] [id number] Univers 00:00:00 00:00:00 [facility] 2020-08-30 2020-08-30 Outpatient R RUSTY [facility] [id number] Univers 09:45:00 09:45:00 MANUEL [id number] [facility] 2020-08-30 2020-08-30 Outpatient R RUSTY [facility] [id number] Univers 09:45:00 09:45:00 MANUEL [facility] 2020-05-21 2020-05-21 Outpatient Laura OLIVEIRA [facility] [id number] Univers 08:30:00 08:30:00 ANGIE [facility] 2020-05-21 2020-05-21 Outpatient Laura OLIVEIRA [facility] [id number] Univers 08:30:00 08:30:00 ANGIE [facility] 2020-03-08 2020-03-08 Refill Hanna [facility] [id number] 00:00:00 00:00:00 Zoey Interior [id number] [place] 4.2.7.2.686 Professio [id number] [address] 2020-01-09 2020-01-09 [facility] [id number] 00:00:00 00:00:00 Zoey Interior [id number] [place] 4.2.7.2.686 Professio [id number] [address] 2019-12-04 2019-12-04 Outpatient HANNASTACIA [facility] [id number] Univers 13:00:00 13:00:00 [id number] [facility] 2019-12-04 2019-12-04 Outpatient R STACIA FERREIRA [facility] [id number] Univers 13:00:00 13:00:00 [facility] 2019-12-04 2019-12-04 Telephone Stacia Ferreira [facility] [id number] 00:00:00 00:00:00 Cam Interior [id number] [place] 4.2.7.2.686 Professio [id number] [address] 2019-12-04 2019-12-04 Orders Doctor SARI [id number] 00:00:00 00:00:00 Only Unassigned, JAMILA 350.1.13.10 Anon Raices [facility] 4.2.7.2.686 [id number] 2019-11-21 2019-11-21 Telephone Stacia Ferreira [facility] [id number] 00:00:00 00:00:00 Zoey Interior [id number] [place] 4.2.7.2.686 Professio [id number] [address] 2019-11-16 2019-11-16 Outpatient R YAHIR [facility] [id number] Univers 10:00:00 10:00:00 ANGIE [facility] 2019-10-24 2019-10-27 Inpatient P HANNA [facility] [id number] Univers 15:08:52 18:45:00 [facility] 2019-10-05 2019-10-05 Outpatient R HANNA STACIA [facility] [id number] Univers 13:00:00 14:51:16 [facility] Results Test Description Test Time Test Comments Results Result Comments Source COMP. METABOLIC PANEL (64355) 2021-11-28 21:13:22 Test Item Value Reference Range Interpretation Comme nts NA (test code = 1666377412) 138 mmol/L 135-145 K (test code = 1585650747) 4.1 mmol/L 3.5-5.0 CL (test code = 8771717935) 104 mmol/L 98-108 CO2 TOTAL (test code = 2948756490) 22 mmol/L 23-31 L AGAP (test code = 6608880942) 2-16 BUN (test code = 3760069035) 12 mg/dL 7-23 GLUCOSE (test code = 7872241056) 84 mg/dL 70-110 CREATININE (test code = 0.65 mg/dL 0.50-1.04 0741314886) TOTAL BILI (test code = 0.8 mg/dL 0.1-1.1 3693401352) CALCIUM (test code = 7275890486) 9.2 mg/dL 8.6-10.6 T PROTEIN (test code = 7893824853) 7.5 g/dL 6.3-8.2 ALBUMIN (test code = 6870396747) 4.5 g/dL 3.5-5.0 ALK PHOS (test code = 6450331663) 55 U/L 34-122 ALTv (test code = 1742-6) 24 U/L 5-35 AST(SGOT) (test code = 0513944597) 27 U/L 13-40 eGFR (test code = 4472278740) mL/min/1.73m2 ALVARADO (test code = ALVARADO) Association of Glomerular Filtration Rate (GFR) and Staging of Kidney Disease* + +-------- + ------+| GFR (mL/min/1.73 m2) ?| With Kidney Damage ?| ?Without Kidney Damage+ +-- + +| ?>90 ?| ?Stage one ?| ? Normal ?+ +------- + -------+| ?60-89 ?| ?Stage two ?| ? Decreased GFR ? + +-------- + ------+| ?30-59 ?| ?Stage three ?| ? Stage three ? + +-------- + ------+| ?15-29 ?| ?Stage four ? | ? Stage four ?+ +------- + -------+| ?<15 (or dialysis) ? ?| ?Stage five ? | ? Stage five ?+ +------- + -------+ *Each stage assumes the associated GFR level has been in effect for at least three months. ?Stages 1 to 5, with or without kidney disease, indicate chronic kidney disease. Notes: Determination of stages one and two (with eGFR >59mL/min/1.73 m2) requires estimation of kidney damage for at least three months as defined by structural or functional abnormalities of the kidney, manifested by either:Pathological abnormalities or Markers of kidney damage (including abnormalities in the composition of the blood or urine or abnormalities in imaging tests). Lab Interpretation (test code = Abnormal 30935-4) [facility] WITH [id number] 21:03:02 Test Item Value Reference Range Interpretation Comments WBC (test code = See_Comment [Automated 6690-2) message] The sy stem which generated this result transmitted reference range : 4.30 - 11.10 10*3/?L. The reference range was not used to interpret this result as normal/abnormal . RBC (test code = See_Comment [Automated 789-8) message] The sy stem which generated this result transmitted reference range : 3.93 - 5.25 10*6/?L. The reference range was not used to interpret this result as normal/abnormal . HGB (test code = 14.6 g/dL 11.6-15.0 718-7) HCT (test code = 42.7 % 35.7-45.2 4544-3) MCV (test code = 82.1 fL 80.6-95.5 787-2) MCH (test code = 28.1 pg 25.9-32.8 785-6) MCHC (test code = 34.2 g/dL 31.6-35.1 786-4) RDW-SD (test code = 37.2 fL 39.0-49.9 L 18616-3) RDW-CV (test code = 12.4 % 12.0-15.5 788-0) PLT (test code = See_Comment [Automated 777-3) message] The sy stem which generated this result transmitted reference range : 166 - 358 10*3/ ?L. The reference r annette was not used to interpret this result as normal/abnormal . MPV (test code = 10.2 fL 9.5-12.9 49080-5) NRBC/100 WBC (test See_Comment [Automat ed code = 5725300130) message] The system which generated this result transmitted reference range : 0.0 - 10.0 /100 WBCs. The refer ence range was not u sed to interpret th is result as normal/abnormal . NRBC x10^3 (test code <0.01 See_Comment [Auto mated = 0876891481) message] The s ystem which generated this result transmitted reference range : 10*3/?L. The reference range was not used to interpret this result as normal/abnormal . GRAN MAT (NEUT) % 61.6 % (test code = 770-8) IMM GRAN % (test code 0.30 % = 8774608069) LYMPH % (test code = 30.7 % 736-9) MONO % (test code = 4.6 % 5905-5) EOS % (test code = 2.4 % 713-8) BASO % (test code = 0.4 % 706-2) GRAN MAT x10^3(ANC) 4.93 10*3/uL 1.88-7.09 (test code = 8330950934) IMM GRAN x10^3 (test <0.03 0.00-0.06 code = 0740860435) LYMPH x10^3 (test code 2.45 10*3/uL 1.32-3.29 = 731-0) MONO x10^3 (test code 0.37 10*3/uL 0.33-0.92 = 742-7) EOS x10^3 (test code = 0.19 10*3/uL 0.03-0.39 711-2) BASO x10^3 (test code 0.03 10*3/uL 0.01-0.07 = 704-7) Lab Interpretation Abnormal (test code = 35846-5) [id number] Test Item Value Reference Range Interpretation Comments POCT PREG (test code = 1605) negative On board controls acceptable with present C Line (test code = 3574) POCT PREG LOT # (test code = 3575) [id number] POCT PREG TEST DATE (test code = 357) Lab Interpretation (test code = Normal 46654-2) [facility]"
[2022-02-21] MEDS ORDERED: MORPHINE 4 MG/ML SYR ONE (03:54)
[2022-02-21] MEDS ORDERED: NA CHLORIDE 0.9% 1,000 ML ONE (03:54)
[2022-02-21] MEDS ORDERED: ONDANSETRON 4 MG/2 ML VIAL ONE (03:54)
[2022-02-21 03:57] LABS: Urine Blood Trace-intact (Negative); Urine Glucose Negative (Negative); Urine Protein Negative (Negative); Urine pH 5.5 (5.0-7.0)
[2022-02-21 04:00] LABS: Absolute Lymphocytes (CBC) 2.7 K/uL (0.7-4.9); Hematocrit 44.4 % (36.0-45.0); Lymphocytes % 36.2 % (15.3-44.8); MPV 8.4 fL (7.6-11.3); RBC Red Blood Cell Count 5.48 M/uL (3.86-4.86)
[2022-02-21 04:15] LABS: Albumin 4.3 g/dL (3.4-5.0); Bilirubin Total 0.6 mg/dL (0.2-1.0); Potassium 4.2 mmol/L (3.5-5.1); Protein, Total 8.1 g/dL (6.4-8.2)
--- NOTE | 2022-02-21 07:05 | ER ---
Nurse's Notes [facility] Name: Kelly Hill Age: 26 yrs Sex: Female : 1995 Arrival Date: 02/21/2022 Time: 00:42 Bed 12 Private MD: Diagnosis: Upper abdominal pain, unspecified Presentation: 02/21 00:51 Chief complaint: Patient states: Intermittent right rib pain - hurts when I exhale ld1 since "last year." Pt denies trauma, no injury. Coronavirus screen: At this time, the client does not indicate any symptoms associated with coronavirus-19. Ebola Screen: No symptoms or risks identified at this time. Initial Sepsis Screen: Does the patient meet any 2 criteria? No. Patient's initial sepsis screen is negative. Does the patient have a suspected source of infection? No. Patient's initial sepsis screen is negative. Risk Assessment: Do you want to hurt yourself or someone else? Patient reports no desire to harm self or others. Onset of symptoms was February 21, 2022. 00:51 Method Of Arrival: Ambulatory ld1 00:51 Acuity: JULISSA 4 ld1 Triage Assessment: 00:52 General: Appears in no apparent distress. comfortable, Behavior is calm, cooperative, ld1 appropriate for age. Pain: Complains of pain in diaphragm Pain does not radiate. Pain currently is 8 out of 10 on a pain scale. EENT: No signs and/or symptoms were reported regarding the EENT system. Neuro: Level of Consciousness is awake, alert, obeys commands, Oriented to person, place, time, situation. Cardiovascular: Capillary refill < 3 seconds Patient's skin is warm and dry. Respiratory: Airway is patent Respiratory effort is even, unlabored. GI: Abdomen is round non-distended. : No signs and/or symptoms were reported regarding the genitourinary system. Derm: No signs and/or symptoms reported regarding the dermatologic system. Musculoskeletal: Reports pain in diaphragm. TAX SPECIALIST: 00:52 LMP 01/30/2022 ld1 Historical: - Allergies: 00:52 No Known Allergies; ld1 - PMHx: 00:52 None; ld1 - PSHx: 00:52 None; ld1 - Immunization history:: Adult Immunizations up to date, Client reports receiving the 2nd dose of the Covid vaccine. - Social history:: Smoking status: Patient denies any tobacco usage or history of. Patient uses alcohol. Screenin:00 Abuse screen: Denies threats or abuse. Nutritional screening: No deficits noted. vc1 Tuberculosis screening: No symptoms or risk factors identified. Fall Risk None identified. Assessment: 03:00 Reassessment: See triage assessment. vc1 04:00 Reassessment: No changes from previously documented assessment. Patient and/or family vc1 updated on plan of care and expected duration. Pain level reassessed. 04:54 Reassessment: Pt states it still hurts to exhale but she is now able to get into a vc1 comfortable position. General: Appears in no apparent distress. Behavior is calm, cooperative, appropriate for age. Pain: Complains of pain in right upper quadrant Aggravated by repositioning, moving, coughing, exhaling. Neuro: Laurent Agitation-Sedation Scale (RASS): 0 - Alert and Calm. 07:10 Reassessment: Patient and/or family updated on plan of care and expected duration. Pain vc1 level reassessed. Patient is alert, oriented x 3, equal unlabored respirations, skin warm/dry/pink. Patient states feeling better. Patient states symptoms have improved. Vital Signs: 00:51 BP 119 / 73; Pulse 88; Resp 18; Temp 97.6(TE); Pulse Ox 98% on R/A; Weight 99.79 kg; ld1 Height 5 ft. 4 in. (162.56 cm); Pain 4/10; 04:53 BP 105 / 68; Pulse 78; Resp 18; Pulse Ox 100% on R/A; vc1 07:10 BP 107 / 64; Pulse 82; Resp 18; Pulse Ox 100% ; vc1 00:51 Body Mass Index 37.76 (99.79 kg, 162.56 cm) ld1 ED Course: 00:42 Patient arrived in ED. bp1 00:52 Triage completed. ld1 00:52 Arm band placed on right wrist. ld1 02:36 Khari Kennedy MD is Attending Physician. mh7 03:58 Inserted saline lock: 20 gauge in left antecubital area, using aseptic technique. Blood kd3 collected. 04:56 Patient has correct armband on for positive identification. Bed in low position. Call vc1 light in reach. Pulse ox on. NIBP on. 06:18 CT Abd/Pelvis - IV Contrast Only In Process Unspecified. EDMS 07:10 Alyse Jay, RN is Primary Nurse. vc1 07:11 No provider procedures requiring assistance completed. IV discontinued, intact, vc1 bleeding controlled, No redness/swelling at site. Pressure dressing applied. Administered Medications: 03:57 Drug: NS 0.9% 1000 ml Route: IV; Rate: 1 bolus; Site: left antecubital; kd3 03:57 Drug: Zofran (Ondansetron) 4 mg Route: IVP; Site: left antecubital; kd3 03:57 Drug: morphine 4 mg Route: IVP; Infused Over: 4 mins; Site: left antecubital; kd3 Medication: 07:11 VIS not applicable for this client. vc1 Outcome: 07:04 Discharge ordered by . 7 07:11 Discharged to home ambulatory. vc1 07:11 Condition: good 07:11 Discharge instructions given to patient, Instructed on discharge instructions, follow up and referral plans. medication usage, Demonstrated understanding of instructions, follow-up care, medications, Prescriptions given X 3. 07:11 Patient left the ED. vc1 Signatures: Dispatcher [employer] EDMS Bruna Oneal Maurice, MD MD 7 Raya Thompson RN RN ld1 Yolanda Worley RN RN kd3 Alyse Jay, MARTA RN vc1
--- NOTE | 2022-02-21 07:05 | EDPHYS ---
Physician Documentation [facility] Name: Kelly Hill Age: 26 yrs Sex: Female : 1995 Arrival Date: 02/21/2022 Time: 00:42 Bed 12 Private MD: ED Physician Khari Kennedy HPI: 02/21 02:55 This 26 yrs old Female presents to ER via Ambulatory with complaints of Ribpain, Hurts mh7 to breathe when exhaling. 02:55 The patient presents with abdominal pain in the right upper quadrant. Onset: The mh7 symptoms/episode began/occurred 2 day(s) ago. The symptoms do not radiate. Associated signs and symptoms: Pertinent positives: nausea, Pertinent negatives: anorexia, blood in stools, chest pain, constipation, diarrhea, dysuria, fever, headache, hematuria, palpitations, shortness of breath, vaginal discharge, vomiting, vomiting blood. The symptoms are described as intermittent, vague, waxing/waning. Modifying factors: The symptoms are alleviated by nothing, the symptoms are aggravated by food. Severity of pain: At its worst the pain was moderate 2 day(s) ago, in the emergency department the pain has improved moderately. 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 - Social history:: Smoking status: Patient denies any tobacco usage or history of. Patient uses alcohol. ROS: 02:55 Constitutional: Negative for fever, chills, and weight loss, Eyes: Negative for injury, mh7 pain, redness, and discharge, ENT: Negative for injury, pain, and discharge, Neck: Negative for injury, pain, and swelling, Cardiovascular: Negative for chest pain, palpitations, and edema, Respiratory: Negative for shortness of breath, cough, wheezing, and pleuritic chest pain, Back: Negative for injury and pain, : Negative for injury, bleeding, discharge, and swelling, MS/Extremity: Negative for injury and deformity, Skin: Negative for injury, rash, and discoloration, Neuro: Negative for headache, weakness, numbness, tingling, and seizure, Psych: Negative for depression, anxiety, suicide ideation, homicidal ideation, and hallucinations, Allergy/Immunology: Negative for hives, rash, and allergies, Endocrine: Negative for neck swelling, polydipsia, polyuria, polyphagia, and marked weight changes, Hematologic/Lymphatic: Negative for swollen nodes, abnormal bleeding, and unusual bruising. Exam: 02:55 Head/Face: Normocephalic, atraumatic. Eyes: Pupils equal round and reactive to light, mh7 extra-ocular motions intact. Lids and lashes normal. Conjunctiva and sclera are non-icteric and not injected. Cornea within normal limits. Periorbital areas with no swelling, redness, or edema. Neck: Trachea midline, no thyromegaly or masses palpated, and no cervical lymphadenopathy. Supple, full range of motion without nuchal rigidity, or vertebral point tenderness. No Meningismus. Chest/axilla: Normal chest wall appearance and motion. Nontender with no deformity. No lesions are appreciated. Cardiovascular: Regular rate and rhythm with a normal S1 and S2. No gallops, murmurs, or rubs. Normal PMI, no JVD. No pulse deficits. Back: No spinal tenderness. No costovertebral tenderness. Full range of motion. Skin: Warm, dry with normal turgor. Normal color with no rashes, no lesions, and no evidence of cellulitis. MS/ Extremity: Pulses equal, no cyanosis. Neurovascular intact. Full, normal range of motion. Neuro: Awake and alert, GCS 15, oriented to person, place, time, and situation. Cranial nerves II-XII grossly intact. Motor strength 5/5 in all extremities. Sensory grossly intact. Cerebellar exam normal. Normal gait. Psych: Awake, alert, with orientation to person, place and time. Behavior, mood, and affect are within normal limits. 02:55 Constitutional: The patient appears in no acute distress, alert, awake, uncomfortable. 02:55 Abdomen/GI: Inspection: abdomen appears normal, Bowel sounds: normal, in all quadrants, Palpation: moderate abdominal tenderness, in the right upper quadrant, mass, is not appreciated, rebound tenderness, is not appreciated, voluntary guarding, is not appreciated, involuntary guarding, is not appreciated, no appreciated organomegaly, Indicators: McBurney's point is not tender, Ngo's sign is negative, Rovsing's sign is negative, Obturator sign is negative, Psoas sign is negative, Liver: no appreciated palpable abnormalities, Hernia: not appreciated. Vital Signs: 00:51 BP 119 / 73; Pulse 88; Resp 18; Temp 97.6(TE); Pulse Ox 98% on R/A; Weight 99.79 kg; ld1 Height 5 ft. 4 in. (162.56 cm); Pain 4/10; 04:53 BP 105 / 68; Pulse 78; Resp 18; Pulse Ox 100% on R/A; vc1 07:10 BP 107 / 64; Pulse 82; Resp 18; Pulse Ox 100% ; vc1 00:51 Body Mass Index 37.76 (99.79 kg, 162.56 cm) ld1 MDM: 07:03 Differential diagnosis: bowel obstruction, cholecystitis, Cholelithiasis, mh7 diverticulitis, gastritis, gastroesophageal reflux disease, non-specific abd pain, pancreatitis, Pyelonephritis, Ureterolithiasis, urinary tract infection. Data reviewed: vital signs, nurses notes, lab test result(s), CBC, electrolytes, urinalysis, EKG, radiologic studies, CT scan. Data interpreted: Pulse oximetry: is not applicable for this patient encounter. Counseling: I had a detailed discussion with the patient and/or guardian regarding: the historical points, exam findings, and any diagnostic results supporting the discharge/admit diagnosis, lab results, radiology results, the need for outpatient follow up, to return to the emergency department if symptoms worsen or persist or if there are any questions or concerns that arise at home. Response to treatment: the patient's symptoms have resolved after treatment, the patient's blood pressure is in an acceptable range, mental status has returned to baseline, the patient no longer shows bradycardia, the patient is not short of breath, the patient is not tachycardic, the patient's pain is gone, the patient's temperature has normalized, the patient is now symptom free, patient is well hydrated. 07:04 Patient medically screened. [facility] 02/21 03:02 Order name: CBC with Diff; Complete Time: 04:18 [facility] 02/21 03:02 Order name: CMP; Complete Time: 04:18 [facility] 02/21 03:02 Order name: Lipase; Complete Time: 04:18 [facility] 02/21 03:02 Order name: CT Abd/Pelvis - IV Contrast Only [facility] 02/21 03:57 Order name: Urine Dipstick-Ancillary; Complete Time: 04:18 [facility] 02/21 04:01 Order name: Urine --Ancillary (enter results); Complete Time: 04:18 [facility]4 02/21 03:02 Order name: IV Saline Lock; Complete Time: 03:58 [facility] 02/21 03:02 Order name: Labs collected and sent; Complete Time: 03:58 [facility] 02/21 03:02 Order name: Urine Dipstick-Ancillary (obtain specimen); Complete Time: 03:58 [facility] 02/21 03:02 Order name: Urine Test (obtain specimen); Complete Time: 03:58 [facility] Administered Medications: 03:57 Drug: NS 0.9% 1000 ml Route: IV; Rate: 1 bolus; Site: left antecubital; kd3 03:57 Drug: Zofran (Ondansetron) 4 mg Route: IVP; Site: left antecubital; kd3 03:57 Drug: morphine 4 mg Route: IVP; Infused Over: 4 mins; Site: left antecubital; kd3 Disposition Summary: 02/21/22 07:04 Discharge Ordered Location: Home [facility] Problem: an ongoing problem [facility] Symptoms: have improved [facility] Condition: Stable [facility] Diagnosis - Upper abdominal pain, unspecified [facility] Followup: [facility] - With: Private Physician - When: 1 - 2 days - Reason: Worsening of condition, Recheck today's complaints, Continuance of care, Re-evaluation by your physician Discharge Instructions: - Discharge Summary Sheet [facility] - Abdominal Pain, Adult, [id number] [facility] Forms: - Medication Reconciliation Form [facility] - Thank You Letter [facility] - Antibiotic Education [facility] - Prescription Opioid Use [facility] Prescriptions: - ondansetron 4 mg Oral tablet,disintegrating - place 1 tablet by TRANSLINGUAL route every 8 hours As needed; 10 tablet; [facility] Refills: 0, Product Selection Permitted - Pepcid 20 mg Oral Tablet - take 1 tablet by ORAL route every 12 hours for 5 days; 10 tablet; Refills: 0, [facility] Product Selection Permitted - dicyclomine 20 mg Oral Tablet - take 1 tablet by ORAL route 4 times per day As needed; 20 tablet; Refills: 0, [facility] Product Selection Permitted 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 mh7
[2022-02-21 07:16] VITALS: TEMP 97.6
[2022-02-21 07:17] VITALS: O2SAT 100
[2022-02-21 07:18] VITALS: BP 107/64
--- NOTE | 2022-02-23 12:04 | RAD REPORT ---
EXAM DESCRIPTION: CT - Abdomen Pelvis W Contrast - 02/21/2022 7:28 am CLINICAL HISTORY: Abdominal pain, acute, nonlocalized COMPARISON: None TECHNIQUE: Contiguous axial sections of the abdomen and pelvis were obtained following administratio n of intravenous contrast. Sagittal and coronal reformatted images are generated for review. This exa m was performed according to our departmental dose-optimization program, which includes automated exp osure control, adjustment of the mA and/or kV according to patient size and/or use of iterative recon struction technique. FINDINGS: Lower Chest: The imaged lung bases are clear. No pleural or pericardial effusion. Organs: The liver, spleen, gallbladder, pancreas, adrenal glands, and kidneys are normal. GI/Bowel: There are no findings of small bowel obstruction. No acute bowel wall inflammatory changes. The appendix is normal. Pelvis: The bladder and rectum are normal. No pelvic free fluid. No pelvic lymphadenopathy. Peritoneum/Retroperitoneum: No free fluid or free air. No mesenteric or retroperitoneal lymphadenopat hy. Bones/Soft Tissues: There are no suspicious-appearing lytic or blastic osseous lesions. IMPRESSION: No acute intra-abdominal or pelvic abnormality. RECOMMENDATIONS: Electronically signed by: Amando Christopher MD 02/21/2022 6:56 AM CDT Due to temporary technical issues with the PACS/Fluency reporting system, reports are being signed by the in house radiologist without review as a courtesy to ensure prompt reporting. The interpreting r adiologist is fully responsible for the content of the report.
== END 2022-02-21 07:11 | disposition home or self-care (01) ==
LOC: ER 00:38
DX: R10.11 Right upper quadrant pain (principal)
CPT/HCPCS: 85025; 36415; 81025; 81003; 83690; 80053; 74177; 96375; 96374; 99284; Q9967; J7030; J2405

== ENCOUNTER 2023-12-21 11:50 | Emergency (ER) | payer SELFPAY ==
--- OUTSIDE RECORDS SUMMARY | 2023-12-21 11:54 | XMS REPORT | Continuity of Care Document ---
Author Name Unknown Address [address] [place] [address] [facility] thcessentia healthect Address [address] [place] [address] Care Team Providers Care Loom Mechanic Name Role Phone PCP, PATIENT DOES NOT HAVE A Primary Care Physic viviana Unavailable EVELYN_[email or web address]_S Attending Clinician Unavaila DINORAH Cunningham Attending Clinician UnavailDINORAH Berger Attending Clinician UnavailJunior Garsia MD Attending Clinician [phone] JUNIOR VILLATORO Attending Clinician Unavail able JUNIOR VILLATORO Attending Clinician Unavail able Doctor Unassigned, [place] Attending Clinician U Stacia Costello MD Attending Clinician [phone] NERY MOLINA Attending Clinician Unavailable Nery Molina MD Attending Clinician [phone] PARVEZ VAZQUEZ Attending Clinician Unavailable STACIA FERREIRA Attending Clinician Unavailable Angie Sinclair PA-C Attending Clinician [phone] ANGIE SINCLAIR Attending Clinician Unavailable MARGARITA FERNANDEZ Attending Clinician Unavailable MANUEL OJEDA Attending Clinician Unavailabl e EVELYN_GCBZW_Kanataliiaa_S Admitting Clinician UnavailDINORAH Berger Admitting Clinician UnavailJUNIOR Garsia Admitting Clinician Unavail able NERY MOLINA Admitting Clinician Unavailable MANUEL OJEDA Admitting Clinician Unavailabl e STACIA FERREIRA Admitting Clinician Unavailable Payers Payer Name Policy Type Policy Number Effective Date Expirati on Date Source [facility] [id number] 2023 00:00:00 [facility] [id number] 2022 00:00:00 [facility] KRISTA ESPINOZA [id number] 2019 00:00:00 Problems Condition Name Condition Details Condition Category Status Onset Date Resolution Date Last Treatment Date Treating Clinician Comments Source Family planning, IUD (intrauter ine device) check/rein sertion/re moval Family planning, IUD (intrauter ine device) check/rein sertion/re moval Disease Active 8-03 00:00: 00 [facility] Chronic midline low back pain with sciatica, sciatica laterality unspecifie d Chronic midline low back pain with sciatica, sciatica laterality unspecifie d Disease Active 7 00:00: 00 [facility] Mass overlappin g multiple quadrants of left breast Mass overlappin g multiple quadrants of left breast Disease Active 03-25 00:00: 00 [facility] Excessive or frequent menstruati on Excessive or frequent menstruati on Disease Active 2021-09 0-05 00:00: 00 [facility] Candidiasi s of breast Candidiasi s of breast Disease Active - 00:00: 00 [facility] Antibiotic long-term use Antibiotic long-term use Disease Active 9-20 00:00: 00 [facility] Pain pelvic Pain pelvic Disease Active 9- 00:00: 00 [facility] Counseling for control regarding intrauteri ne device (IUD) Counseling for control regarding intrauteri ne device (IUD) Disease Active 04-08 00:00: 00 [facility] Nexplanon in place Nexplanon in place Disease Active 04-08 00:00: 00 [facility] Oral contracept ion initiation Oral contracept ion initiation Disease Active 0 2-12 00:00: 00 [facility] BMI 36.0-36.9, adult BMI 36.0-36.9, adult Disease Active 2018-09 00:00: 00 [facility] Allergies, Adverse Reactions, Alerts Allergy Name Allergy Type Status Severity Reaction(s) Onset Date Inactive Date Treating Clinician Comments Source NO KNOWN ALLERGIE S Drug Class Active [facility] Social History Social Habit Start Date Stop Date Quantity Comments Source History of tobacco use User of smokeless tobacco [facility] Alcohol intake 2023-05-13 00:00:00 2023-05-13 00:00:00 Ex-drinker (finding) [facility] History of Social function 2023-05-03 00:00:00 2023-05-03 00:00:00 [facility] Exposure to SARS-CoV-2 (event) 2022-06-12 00:00:00 2022-06-22 14:23:00 Not sure [facility] Tobacco use and exposure 2022-06-02 00:00:00 2022-06-02 00:00:00 Former smokeless tobacco user [facility] Sex Assigned At 1995 00:00:00 1995 00:00:00 [facility] Smoking Status Start Date Stop Date Source Never smoked tobacco [facility] Medications Ordered Medication Name Filled Medication Name Start Date Stop Date Current Medication? Ordering Clinician Indication Dosage Frequency Signature (SIG) Comments Components Source norgestimat e-ethinyl estradioL (TRI-LO-SPR INTEC) 0.18/0.215/ 0.25 mg-25 mcg tablet 04-15 00:00: 00 Yes [id number] 1{tbl} Take 1 tablet by mouth in the morning. [facility] nystatin 100,000 unit/gram cream 03-25 00:00: 00 Yes [id number] Apply to area(s) 2 (two) times daily. [facility] triamcinolo ne 0.025 % cream 03-25 00:00: 00 Yes [id number] Apply to area(s) 2 (two) times daily. [facility] levonorgest reL (KYLEENA) IUD 1 Device 2022-1 0-10 21:15: 00 06-22 20:23 :00 No [id number] 1{devic e} [facility] miSOPROStoL 200 mcg tablet 2021-09 0-04 00:00: 00 06-22 00:00 :00 No [id number] Take one tablet the night before IUD insertion procedure and take one tablet the morning of the IUD insertion procedure. This is not for abortive treatment; patient will have IUD insertion. [facility] fluconazole 200 mg tablet 06-02 00:00: 00 Yes [id number] 200mg Take 1 tablet by mouth in the morning. [facility] triamcinolo ne 0.025 % cream 06-02 00:00: 00 03-25 00:00 :00 No [id number] Apply to area(s) 2 (two) times daily. [facility] nystatin 100,000 unit/gram cream 06-02 00:00: 00 03-25 00:00 :00 No [id number] Apply to area(s) 2 (two) times daily. [facility] ondansetron (ZOFRAN (PF)) injection 4 mg 11-28 21:30: 00 11-28 20:43 :00 No 4mg 4 mg, Slow IV Push, ONCE, 1 dose, On Wed11/28/21 at 1630, NAIMA [facility] morpHINE injection 4 mg 11-28 21:30: 00 11-28 20:47 :00 No 4mg 4 mg, Slow IV Push, ONCE, 1 dose, On Wed11/28/21 at 1630, STAT [facility] ketorolac (TORADOL) injection 30 mg 11-28 21:30: 00 11-28 20:45 :00 No 30mg 30 mg, Slow IV Push, ONCE, 1 dose, On Wed11/28/21 at 1630, NAIMA
Fa culty member approving Restricted medication : NERY MOLINA [facility] ibuprofen 800 mg tablet 2022-0 3-18 00:00: 00 Yes [id number] 800mg Take 1 tablet by mouth every 8 (eight) hours. [facility] HYDROcodone -acetaminop hen 5-325 mg tablet 11-28 00:00: 00 12-06 04:59 :00 No [id number] 1{tbl} Take 1 tablet by mouth every 4 (four) hours as needed for Pain (scale 4-6) for up to 7 days. Indication s: acute pain [facility] No known medications 05-15 17:49: 05 No [facility] No known medications No Un maria m [facility] Vital Signs Vital Name Observation Time Observation Value Comments S ource Systolic blood pressure 2023-05-13 16:29:00 109 mm[Hg] [facility] acute hospital Diastolic blood pressure 2023-05-13 16:29:00 74 mm[Hg] General acute hospital Heart rate 2023-05-13 16:29:00 66 /min [facility] Respiratory rate 2023-05-13 16:29:00 18 /min [facility] Body height 2023-05-13 16:29:00 165.1 cm [facility] Body weight 2023-05-13 16:29:00 99.791 kg [facility] BMI 2023-05-13 16:29:00 36.61 kg/m2 [facility] Systolic blood pressure 2023-05-03 18:05:00 109 mm[Hg] General acute hospital Diastolic blood pressure 2023-05-03 18:05:00 76 mm[Hg] General acute hospital Heart rate 2023-05-03 18:05:00 79 /min [facility] Respiratory rate 2023-05-03 18:05:00 18 /min [facility] Body height 2023-05-03 18:05:00 165.1 cm [facility] Body weight 2023-05-03 18:05:00 100.608 kg [facility] BMI 2023-05-03 18:05:00 36.91 kg/m2 [facility] Systolic blood pressure 2023-04-15 18:03:00 126 mm[Hg] General acute hospital Diastolic blood pressure 2023-04-15 18:03:00 77 mm[Hg] General acute hospital Heart rate 2023-04-15 18:03:00 69 /min [facility] Body temperature 2023-04-15 18:03:00 36.72 Tessa [facility] Respiratory rate 2023-04-15 18:03:00 16 /min [facility] Body height 2023-04-15 18:03:00 165.1 cm [facility] Body weight 2023-04-15 18:03:00 99.655 kg [facility] BMI 2023-04-15 18:03:00 36.56 kg/m2 [facility] Oxygen saturation in Arterial blood by Pulse oximetry 2023-04-15 18:03:00 98 /min [facility] acute hospital Systolic blood pressure 2023-03-26 14:21:00 127 mm[Hg] General acute hospital Diastolic blood pressure 2023-03-26 14:21:00 88 mm[Hg] General acute hospital Heart rate 2023-03-26 14:21:00 82 /min [facility] Respiratory rate 2023-03-26 14:21:00 18 /min [facility] Body height 2023-03-26 14:21:00 165.1 cm [facility] Body weight 2023-03-26 14:21:00 100.699 kg [facility] BMI 2023-03-26 14:21:00 36.94 kg/m2 [facility] Oxygen saturation in Arterial blood by Pulse oximetry 2023-03-26 14:21:00 99 /min [facility] acute hospital Systolic blood pressure 2023-03-25 19:08:00 110 mm[Hg] General acute hospital Diastolic blood pressure 2023-03-25 19:08:00 73 mm[Hg] General acute hospital Heart rate 2023-03-25 19:08:00 72 /min [facility] Body temperature 2023-03-25 19:08:00 36.72 Tessa [facility] Respiratory rate 2023-03-25 19:08:00 18 /min [facility] Body height 2023-03-25 19:08:00 162.6 cm [facility] Body weight 2023-03-25 19:08:00 100.245 kg [facility] BMI 2023-03-25 19:08:00 37.93 kg/m2 [facility] Systolic blood pressure 2022-06-22 19:24:00 120 mm[Hg] General acute hospital Diastolic blood pressure 2022-06-22 19:24:00 78 mm[Hg] General acute hospital Heart rate 2022-06-22 19:24:00 82 /min [facility] Body temperature 2022-06-22 19:24:00 37.06 Tessa [facility] Respiratory rate 2022-06-22 19:24:00 16 /min [facility] Body height 2022-06-22 19:24:00 162.6 cm [facility] Body weight 2022-06-22 19:24:00 102.059 kg [facility] BMI 2022-06-22 19:24:00 38.62 kg/m2 [facility] Oxygen saturation in Arterial blood by Pulse oximetry 2022-06-22 19:24:00 97 /min General acute hospital Systolic blood pressure 2022-06-16 18:26:00 112 mm[Hg] General acute hospital Diastolic blood pressure 2022-06-16 18:26:00 79 mm[Hg] General acute hospital Heart rate 2022-06-16 18:26:00 77 /min [facility] Body temperature 2022-06-16 18:26:00 36.78 Tessa [facility] Respiratory rate 2022-06-16 18:26:00 18 /min [facility] Body height 2022-06-16 18:26:00 162.6 cm [facility] Body weight 2022-06-16 18:26:00 103.874 kg [facility] BMI 2022-06-16 18:26:00 39.31 kg/m2 [facility] Systolic blood pressure 2022-06-02 15:12:00 116 mm[Hg] General acute hospital Diastolic blood pressure 2022-06-02 15:12:00 82 mm[Hg] General acute hospital Heart rate 2022-06-02 15:12:00 82 /min [facility] Body temperature 2022-06-02 15:12:00 36.72 Tessa [facility] Respiratory rate 2022-06-02 15:12:00 18 /min [facility] Body height 2022-06-02 15:12:00 162.6 cm [facility] Body weight 2022-06-02 15:12:00 104.781 kg [facility] BMI 2022-06-02 15:12:00 39.65 kg/m2 [facility] Systolic blood pressure 2021-11-28 22:15:00 115 mm[Hg] General acute hospital Diastolic blood pressure 2021-11-28 22:15:00 75 mm[Hg] General acute hospital Heart rate 2021-11-28 22:15:00 73 /min [facility] Respiratory rate 2021-11-28 22:15:00 18 /min [facility] Oxygen saturation in Arterial blood by Pulse oximetry 2021-11-28 22:15:00 99 /min General acute hospital Body temperature 2021-11-28 19:34:00 37.06 Tessa [facility] Body weight 2021-11-28 19:34:00 84.823 kg [facility] BMI 2021-11-28 19:34:00 31.60 kg/m2 [facility] Systolic blood pressure 2021-05-15 21:49:00 119 mm[Hg] General acute hospital Diastolic blood pressure 2021-05-15 21:49:00 79 mm[Hg] General acute hospital Heart rate 2021-05-15 21:49:00 80 /min [facility] Body temperature 2021-05-15 21:49:00 37 Tessa [facility] Respiratory rate 2021-05-15 21:49:00 18 /min [facility] Body height 2021-05-15 21:49:00 163.8 cm [facility] Body weight 2021-05-15 21:49:00 84.823 kg [facility] BMI 2021-05-15 21:49:00 31.60 kg/m2 [facility] Procedures Procedure Date / Time Performed Performing Clinicia n Source XR SPINE THORACIC 2 VW 2023-05-03 19:09:15 Temo Villatoro [facility] BI ULTRASOUND BREAST COMPLETE LEFT 2023-04-30 19:18:28 Dinorah Cooper [facility] MR LUMBAR SPINE WO CONTRAST 2023-04-13 18:01:00 Junior Villatoro [facility] PATIENT FINANCIAL POLICY 2023-03-25 18:52:26 Doctor Unassigned, [place] [facility] POCT TEST 2022-06-22 00:00:00 Blessing Cooper [facility] ASSIGNMENT OF BENEFITS 2022-06-16 18:15:45 Docto r Unassigned, [place] [facility] US OVARY TORSION 2021-11-28 21:48:37 Nery Molina [facility] URINALYSIS 2021-11-28 20:45[facility] COMP. METABOLIC PANEL ([id number]) 2021-11-28 20:42:00 Nery Molina [facility] CBC WITH DIFF 2021-11-28 20:42:00 Nery Molina [facility] POCT TEST 2021-11-28 20:21:00 Josias Molina [facility] NOTICE OF PRIVACY PRACTICES 2021-11-28 19:25:22 Doctor Unassigned, [place] [facility] CONSENT/REFUSAL FOR DIAGNOSIS AND TREATMENT 2021-11-28 19:25:13 Doctor Unassigned, [place] [facility] Encounters Start Date/Time End Date/Time Encounter Type Admission Type Attending Clinicians Care Facility Care Department Encounter ID Source 2023-07-13 00:00:00 2023-07-13 00:00:00 Outpatient GC_GCBZW_Ka diyala_S [facility] [id number] [facility] 2023-05-13 11:30:00 2023-05-13 11:48:14 Outpatient R DINORAH COOPER CHERYAL [facility] [id number] [facility] 2023-05-13 11:30:00 2023-05-13 11:48:14 Office Visit Dinorah Cooper [facility] 1.840.114 350.1.13.10 4.2.7.2.686 [id number] [facility] 2023-05-03 13:48:37 2023-05-03 23:59:00 Hospital Encounter Junior Villatoro [facility]ER[facility]LE [facility] 1..840.114 350.1.13.10 4.2.7.2.686 [id number] [facility] 2023-05-03 13:00:00 2023-05-03 13:48:21 Outpatient R TAYLER [facility] [id number] [facility] 2023-05-03 13:00:00 2023-05-03 13:48:21 Office Visit Junior Villatoro [facility] 1..840.114 350.1.13.10 4.2.7.2.686 [id number] [facility] 2023-04-30 13:31:46 2023-04-30 23:59:00 Outpatient R DINORAH COOPER CHERYAL [facility] [id number] [facility] 2023-04-30 13:31:46 2023-04-30 23:59:00 Hospital Encounter Dinorah Cooper [facility] 1..840.114 350.1.13.10 4.2.7.2.686 [id number] [facility] 2023-04-15 13:00:00 2023-04-15 13:18:17 Outpatient R SMOOTHJOSE LUISJUANITADINORAH HARMON KALEDEN CRISTINAOK [facility] [id number] [facility] 2023-04-15 13:00:00 2023-04-15 13:18:17 Office Visit Kenneth Dinorah [facility] 1..840.114 350.1.13.10 4.2.7.2.686 [id number] [facility] 2023-04-13 12:22:29 2023-04-13 23:59:00 Outpatient JUNIOR GONZALEZ HOWARD [facility] [id number] [facility] 2023-04-13 12:22:29 2023-04-13 23:59:00 Hospital Encounter Junior Villatoro [facility] 1..840.114 350.1.13.10 4.2.7.2.686 [id number] [facility] 2023-04-07 00:00:00 2023-04-07 00:00:00 Outpatient R KENNETHDINORAH KENNETH DINORAH [facility] [id number] [facility] 2023-03-26 09:20:00 2023-03-26 10:24:57 Outpatient JUNIOR GONZALEZ HOWARD [facility] [id number] [facility] 2023-03-26 09:20:00 2023-03-26 10:24:57 Office Visit Junior Villatoro [facility] 1..840.114 350.1.13.10 4.2.7.2.686 [id number] [facility] 2023-03-25 14:00:00 2023-03-25 14:21:35 Outpatient R DINORAH COOPER CHERYAL [facility] [id number] [facility] 2023-03-25 14:00:00 2023-03-25 14:21:35 Office Visit Dinorah Cooper [facility] 1.2.840.114 350.1.13.10 4.2.7.2.686 [id number] [facility] 2023-03-25 00:00:00 2023-03-25 00:00:00 Orders Only Doctor Unassigned, [place] [facility] 1.2.840.114 350.1.13.10 4.2.7.2.686 [id number] [facility] 2023-03-23 09:00:00 2023-03-23 09:00:00 Outpatient R DINORAH COOPER CHERYAL [facility] [id number] [facility] 2023-03-23 09:00:00 2023-03-23 09:00:00 Outpatient R DINORAH COOPER CHERYAL [facility] [id number] [facility] 2022-06-22 14:30:00 2022-06-22 14:49:02 Outpatient R DINORAH COOPER CHERYAL [facility] [id number] [facility] 2022-06-22 14:30:00 2022-06-22 14:49:02 Office Visit Dinorah Cooper [facility] 1.2.840.114 350.1.13.10 4.2.7.2.686 [id number] [facility] 2022-06-16 13:30:00 2022-06-16 13:39:44 Outpatient R DINORAH COOPER CHERYAL [facility] [id number] [facility] 2022-06-16 13:30:00 2022-06-16 13:39:44 Office Visit Dinorah Cooper [facility] 1.2.840.114 350.1.13.10 4.2.7.2.686 [id number] [facility] 2022-06-16 00:00:00 2022-06-16 00:00:00 Orders Only Doctor Unassigned, [place] [facility] 1.2840.114 350.1.13.10 4.2.7.2.686 [id number] [facility] 2022-06-02 11:00:00 2022-06-02 11:00:00 Office Visit Dinorah Cooper [facility] 1.2840.114 350.1.13.10 4.2.7.2.686 [id number] [facility] 2022-06-02 11:00:00 2022-06-02 10:25:45 [facility] [id number] [facility] 2022-03-02 00:00:00 2022-03-02 00:00:00 Telephone Stacia Ferreira [facility] 1.2840.114 350.1.13.10 4.2.7.2.686 [id number] [facility] 2021-11-28 14:36:00 2021-11-28 17:20:00 Emergency X NERY MOLINA [facility] [id number] [facility] 2021-11-28 14:36:00 2021-11-28 17:20:00 Emergency Nery Molina [facility] 1.2840.114 350.1.13.10 4.2.7.2.686 [id number] [facility] 2021-11-28 00:00:00 2021-11-28 00:00:00 Telephone Stacia Ferreira Cam [facility] 1..840.114 350.1.13.10 4.2.7.2.686 [id number] [facility] 2021-11-28 00:00:00 2021-11-28 00:00:00 Orders Only Doctor Unassigned, [place] [facility] 1.2.840.114 350.1.13.10 4.2.7.2.686 [id number] [facility] 2021-11-05 10:00:00 2021-11-05 10:00:00 Outpatient PARVEZ BATEMAN [facility] [id number] [facility] 2021-10-09 10:30:00 2021-10-09 10:30:00 Outpatient STACIA RECINOS [facility] [id number] [facility] 2021-06-04 09:30:00 2021-06-04 09:30:00 Outpatient R STACIA FERREIRA [facility] [id number] [facility] 2021-05-15 16:38:00 2021-05-15 17:02:35 Office Visit Stacia Ferreira [facility] 1..840.114 350.1.13.10 4.2.7.2.686 [id number] [facility] 2021-05-15 16:15:00 2021-05-15 16:15:00 Outpatient ANGIE MITCHELL [facility] [id number] [facility] 2021-05-14 00:00:00 2021-05-14 00:00:00 Telephone Kyra Ferreiraen [facility] 1.2.840.114 350.1.13.10 4.2.7.2.686 [id number] [facility] 2021-04-08 14:00:00 2021-04-08 14:00:00 Outpatient STACIA RECINOS [facility] [id number] [facility] 2021-03-24 10:45:00 2021-03-24 10:45:00 Outpatient ANGIE MITCHELL [facility] [id number] [facility] 2020-11-01 08:15:00 2020-11-01 08:15:00 Outpatient R MARGARITA FERNANDEZ [facility] [id number] [facility] 2020-10-03 13:15:00 2020-10-03 13:15:00 Outpatient R MANUEL OJEDA [facility] [id number] [facility] 2020-09-25 09:33:33 2020-09-25 23:59:00 Outpatient MANUEL HENDERSON [facility] [id number] [facility] 2020-08-30 09:45:00 2020-08-30 09:45:00 Outpatient MANUEL HENDERSON [facility] [id number] [facility] 2020-05-21 08:30:00 2020-05-21 08:30:00 Outpatient ANGIE MITCHELL [facility] [id number] [facility] 2020-03-08 00:00:00 2020-03-08 00:00:00 Refill Kyra Ferreiraen [address]840.114 350.1.13.10 4.2.7.2.686 [id number] 2020-01-09 00:00:00 2020-01-09 00:00:00 Telephone Kyra Ferreiraen [address]840.114 350.1.13.10 4.2.7.2.686 [id number] 2019-12-04 13:00:00 2019-12-04 13:00:00 Outpatient STACIA RECINOS [facility] [id number] [facility] 2019-12-04 00:00:00 2019-12-04 00:00:00 Telephone Stacia Ferreira [facility] 1.2.840.114 350.1.13.10 4.2.7.2.686 [id number] 2019-12-04 00:00:00 2019-12-04 00:00:00 Orders Only Doctor Unassigned, [place] [facility] 1.2.840.114 350.1.13.10 4.2.7.2.686 [id number] 2019-11-21 00:00:00 2019-11-21 00:00:00 Telephone Stacia Ferreira [facility] 1.2.840.114 350.1.13.10 4.2.7.2.686 [id number] 2019-11-16 10:00:00 2019-11-16 10:00:00 Outpatient R YAHIR ANGIE [facility] [id number] [facility] 2019-10-24 15:08:52 2019-10-27 18:45:00 Inpatient P STACIA FERREIRA [facility] [id number] [facility] 2019-10-05 13:00:00 2019-10-05 14:51:16 Outpatient R STACIA [facility] [id number] [facility] Results Test Description Test Time Test Comments Results Result Co mments Source [id number] 20:28:00* Test Item Value Reference Range Interpretation Comme nts POCT PREG (test code = 1605) Negative On board controls acceptable with C Line (test code = 3574) Yes POCT PREG LOT # (test code = 3575) POCT PREG TEST DATE ( test code = 3576) [facility] ([id number])2021-11-28 21:13:22* Test Item Value Reference Range Interpretation Comme nts NA (test code = 4653898844) 138 mmol/L 135-145 K (test code = 3414500906) 4.1 mmol/L 3.5-5.0 CL (test code = 1467243104) 104 mmol/L 98-108 CO2 TOTAL (test code = 7717755434) 22 mmol/L 23-31 L AGAP (test code = 8142012747) 2-16 BUN (test code = 9723294395) 12 mg/dL 7-23 GLUCOSE (test code = 4323446517) 84 mg/dL 70-110 CREATININE (test code = 1383636812) 0.65 mg/dL 0.50-1.04 TOTAL BILI (test code = 6962738130) 0.8 mg/dL 0.1-1.1 CALCIUM (test code = 3140042446) 9.2 mg/dL 8.6-10.6 T PROTEIN (test code = 4784346579) 7.5 g/dL 6.3-8.2 ALBUMIN (test code = 6191443912) 4.5 g/dL 3.5-5.0 ALK PHOS (test code = 3073300077) 55 U/L 34-122 ALTv (test code = 1742-6) 24 U/L 5-35 AST(SGOT) (test code = 1159094208) 27 U/L 13-40 eGFR (test code = 1876734543) mL/min/1.73m2 ALVARADO (test code = ALVARADO) Association of Glomerular Filtration Rate (GFR) and Staging of Kidney Disease* + --+ --+ ------+| GFR (mL/min/1.73 m2) ?| With Kidney Damage ?| ?Without Kidney Damage+ --------+ --------+ +| ?>90 ?| ?Stage one ?| ? Normal ?+ ---+ ---+ -------+| ?60-89 ?| ?Stage two ?| ? Decreased GFR ? + --+ --+ ------+| ?30-59 ?| ?Stage three ?| ? Stage three ? + --+ --+ ------+| ?15-29 ?| ?Stage four ? | ? Stage four ?+ ---+ ---+ -------+| ?<15 (or dialysis) ? ?| ?Stage five ? | ? Stage five ?+ ---+ ---+ -------+ *Each stage assumes the associated GFR [...] imaging tests). Lab Interpretation (test code = 43412-7) Abnormal [facility] WITH [id number] 21:03:02* Test Item Value Reference Range Interpretation Comme nts WBC (test code = 6690-2) See_Comment [Automated PointBur[employer] ge] The system which generated this result transmitted reference range: 4.30 - 11.10 10*3/?L. The reference range was not used to interpret this result as normal/abnormal. RBC (test code = 789-8) See_Comment [Automated [employer] ge] The system which generated this result transmitted reference range: 3.93 - 5.25 10*6/?L. The reference range was not used to interpret this result as normal/abnormal. HGB (test code = 718-7) 14.6 g/dL 11.6-15.0 HCT (test code = 4544-3) 42.7 % 35.7-45.2 MCV (test code = 787-2) 82.1 fL 80.6-95.5 MCH (test code = 785-6) 28.1 pg 25.9-32.8 MCHC (test code = 786-4) 34.2 g/dL 31.6-35.1 RDW-SD (test code = 19283-9) 37.2 fL 39.0-49.9 L RDW-CV (test code = 788-0) 12.4 % 12.0-15.5 PLT (test code = 777-3) See_Comment [Automated Point[employer] ge] The system which generated this result transmitted reference range: 166 - 358 10*3/?L. The reference range was not used to interpret this result as normal/abnormal. MPV (test code = 77923-6) 10.2 fL 9.5-12.9 NRBC/100 WBC (test code = 0714373549) See_Comment [Automated [employer] ssage] The system which generated this result transmitted reference range: 0.0 - 10.0 /100 WBCs. The reference range was not used to interpret this result as normal/abnormal. NRBC x10^3 (test code = 5706081409) <0.01 See_Comment [Automated messa ge] The system which generated this result transmitted reference range: 10*3/?L. The reference range was not used to interpret this result as normal/abnormal. GRAN MAT (NEUT) % (test code = 770-8) 61.6 % IMM GRAN % (test code = 0357817681) 0.30 % LYMPH % (test code = 736-9) 30.7 % MONO % (test code = 5905-5) 4.6 % EOS % (test code = 713-8) 2.4 % BASO % (test code = 706-2) 0.4 % GRAN MAT x10^3(ANC) (test code = 5871496135) 4.93 10*3/uL 1.88-7.09 IMM GRAN x10^3 (test code = 3860195964) <0.03 0.00-0.06 LYMPH x10^3 (test code = 731-0) 2.45 10*3/uL 1.32-3.29 MONO x10^3 (test code = 742-7) 0.37 10*3/uL 0.33-0.92 EOS x10^3 (test code = 711-2) 0.19 10*3/uL 0.03-0.39 BASO x10^3 (test code = 704-7) 0.03 10*3/uL 0.01-0.07 Lab Interpretation (test code = 49850-4) [facility]normal [facility] [id number] 20:21:00* Test Item Value Reference Range Interpretation Comme nts POCT PREG (test code = 1605) negative On board controls acceptable with C Line (test code = 3574) present POCT PREG LOT # (test code = 3575) [id number] POCT PREG TEST DATE ( test code = 3575) Lab Interpretation (test cod e = 67257-0) Normal [facility]"
[2023-12-21 14:00] LABS: Specific Gravity 1.019 (1.005-1.030)
[2023-12-21 14:03] LABS: Specific Gravity 1.019 (1.005-1.030); Sqamous Epithelial <5 /HPF (None Seen); Urine Bacteria None Seen /HPF (<20); Urine Bilirubin NEGATIVE (Negative); Urine Blood Negative (Negative); Urine Clarity Turbid (Clear); Urine Color Light-Yellow (Yellow); Urine Culture Reflex Order NOT NEEDED; Urine Glucose NEGATIVE (Negative); Urine Ketones NEGATIVE (Negative); Urine Microscopic Reflex YN ORDER UMIC; Urine Mucus Slight /HPF (None Seen); Urine Nitrite NEGATIVE (Negative); Urine Protein NEGATIVE (Negative); Urine RBC <5 /HPF (None Seen); Urine Urobilinogen Normal (Normal); Urine WBC <5 /HPF (<5); Urine pH 5.5 (5.0-7.0)
--- NOTE | 2023-12-21 14:50 | RAD REPORT ---
EXAM DESCRIPTION: CTAbdomen Pelvis W Contrast - 12/21/2023 2:34 pm CLINICAL HISTORY: Abdominal pain. ABD PAIN COMPARISON: <Comparisons> TECHNIQUE: Biphasic CT imaging of the abdomen and pelvis was performed with 100 ml non-ionic IV cont rast. All CT scans are performed using dose optimization technique as appropriate and may include automated exposure control or mA/KV adjustment according to patient size. FINDINGS: The lung bases are clear. The liver, spleen, pancreas, adrenal glands and kidneys are within normal limits. No bowel obstruction, free air, free fluid or abscess. The appendix is normal. No evidence of signi ficant lymphadenopathy. No suspicious bony findings. IMPRESSION: No acute intra-abdominal or pelvic finding.
[2023-12-21] MEDS ORDERED: KETOROLAC 30 MG/ML INJ ONE (14:51)
[2023-12-21] MEDS ORDERED: ONDANSETRON 4 MG/2 ML VIAL ONE (14:51)
[2023-12-21] MEDS ORDERED: NA CHLORIDE 0.9% 1,000 ML ONE (14:51)
[2023-12-21 15:17] LABS: Absolute Basophils 0.1 K/uL (0-0.5); Absolute Eosinophils 0.7 K/uL (0-0.5); Absolute Monocytes 0.5 K/uL (0.1-1.3); Absolute Neutrophil 5.3 K/uL (1.8-8.0); Basophils % 0.9 % (0-1.3); Eosinophils % 7.7 % (0-4.4); MCH 28.6 pg (27.0-35.0); MCHC 34.1 g/dL (32.0-36.0); MCV 83.9 fL (80-100); MPV 9.2 fL (7.6-11.3); Monocytes % 5.1 % (3.3-12.3); Neutrophils % 55.3 % (41.7-73.7); Nucleated Red Blood Cells % 0.2 % (0-0); Platelets 291 thou/uL (152-406); RBC Red Blood Cell Count 5.25 M/uL (3.86-4.86); Red Cell Distribution Width 13.7 % (12.1-15.2)
[2023-12-21 15:35] LABS: Albumin 4.2 g/dL (3.4-5.0); Albumin/Globulin Ratio 1.1 (1.1-1.8); Anion Gap 5.3 mEq/L (5.0-15.0); Bilirubin Total 0.8 mg/dL (0.2-1.0); Globulin 3.8 g/dL (2.3-3.5); Potassium 3.3 mEq/L (3.5-5.1)
[2023-12-21] MEDS ORDERED: POTASSIUM CL SA 10 MEQ TAB PO ONE (15:41)
--- NOTE | 2023-12-21 15:50 | ER ---
Nurse's Notes [facility] Name: Kelly Hill Age: 28 yrs Sex: Female : 1995 Arrival Date: 12/21/2023 Time: 11:50 Bed 8 Private MD: Diagnosis: Lower abdominal pain, unspecified;Diarrhea, unspecified Presentation: 12/20 11:59 Chief complaint: Patient states: lower abdominal and back pain/cramping with nausea and as6 vomiting. Coronavirus screen: At this time, the client does not indicate any symptoms associated with coronavirus-19. Ebola Screen: No symptoms or risks identified at this time. Initial Sepsis Screen: Does the patient meet any 2 criteria? No. Patient's initial sepsis screen is negative. Does the patient have a suspected source of infection? No. Patient's initial sepsis screen is negative. Risk Assessment: Do you want to hurt yourself or someone else? Patient reports no desire to harm self or others. Onset of symptoms was December 18, 2023. 11:59 Method Of Arrival: Ambulatory as6 11:59 Acuity: JULISSA 3 as6 Triage Assessment: 12:00 General: Appears in no apparent distress. Behavior is calm, cooperative. Pain: as6 Complains of pain in back and abdomen. GI: Reports lower abdominal pain, diarrhea, nausea, vomiting. 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 - Infectious Disease History:: Denies. - Social history:: Smoking status: Patient denies any tobacco usage or history of. Screenin:45 [facility] ED Fall Risk Assessment (Adult) History of falling in the last 3 months, ko1 including since admission No falls in past 3 months (0 pts) Confusion or Disorientation No (0 pts) Intoxicated or Sedated No (0 pts) Impaired Gait No (0 pts) Mobility Assist Device Used No (0 pt) Altered Elimination No (0 pt) Score/Fall Risk Level 0 - 2 = Low Risk Oriented to surroundings, Maintained a safe environment, Educated pt \T\ family on fall prevention, incl call for assistance when getting out of bed, Assessed \T\ reinforced patient's understanding of fall precautions, Provided non-skid footwear, Hourly rounding (assess needs \T\ fall precautionary measures) done, Used ambulatory aids as needed (educated on \T\ assisted with), Used gait belt as appropriate. Abuse screen: Denies threats or abuse. Denies injuries from another. Nutritional screening: No deficits noted. Tuberculosis screening: No symptoms or risk factors identified. Assessment: 14:45 General: Appears in no apparent distress. uncomfortable, Behavior is calm, cooperative, ko1 appropriate for age. Pain: Complains of pain in abdomen and back. Neuro: No deficits noted. Cardiovascular: No deficits noted. Respiratory: No deficits noted. GI: Abdomen is obese. : No deficits noted. EENT: No deficits noted. Derm: No deficits noted. Musculoskeletal: No deficits noted. Vital Signs: 11:57 BP 119 / 78; Pulse 90; Resp 15 S; Temp 98.7(O); Pulse Ox 100% on R/A; Weight 97.52 kg as6 (R); Height 5 ft. 4 in. (R); Pain 3/10; 14:45 BP 115 / 68; Pulse 85; Resp 16; Pulse Ox 99% ; ko1 15:50 BP 124 / 72; Pulse 88; Resp 16; Pulse Ox 99% ; ko1 11:57 Body Mass Index 36.90 (97.52 kg, 162.56 cm) as6 11:57 Pain Scale: Adult as6 ED Course: 11:55 Patient arrived in ED. mg5 11:59 Triage completed. as6 12:00 Arm band placed on. as6 12:27 Liseth Pelayo FNP-C is [facility]. kb 12:27 Andres Savage MD is Attending Physician. kb 13:31 Urinalysis w/ reflexes Sent. as6 13:31 Test, Urine Sent. as6 14:13 Patient placed in an exam room, on a stretcher. ll1 14:36 CT Abd/Pelvis - IV Contrast Only In Process Unspecified. EDMS 14:45 Patient has correct armband on for positive identification. Bed in low position. Call ko1 light in reach. Side rails up X2. Client placed on continuous cardiac and pulse oximetry monitoring. NIBP monitoring applied. mobile practice lead on. Door closed. Noise minimized. Lights dimmed. Warm blanket given. 14:45 No provider procedures requiring assistance completed. Initial lab(s) drawn, by ED ko1 staff, sent to lab. Inserted saline lock: 22 gauge in left antecubital area, using aseptic technique. Blood collected. 14:46 Bere Ray, RN is Primary Nurse. ko1 15:08 CBC with Diff Sent. ko1 15:08 CMP Sent. ko1 15:08 Lipase Sent. ko1 15:50 Provided Education on: na. ko1 15:50 IV discontinued, intact, bleeding controlled, No redness/swelling at site. Pressure ko1 dressing applied. Administered Medications: 14:59 Drug: NS 0.9% IV 1000 ml IV at 1000 ml once Route: IV; Rate: 1000 ml; Site: left ko1 antecubital; 16:00 Follow up: Response: No adverse reaction; IV Status: Completed infusion; IV Intake: ko1 1000ml 14:59 Drug: Ondansetron IVP 4 mg IVP once; over 2 minutes Route: IVP; Site: left antecubital; ko1 15:15 Follow up: Response: No adverse reaction; Nausea is decreased ko1 14:59 Drug: Ketorolac IVP 15 mg IVP once Route: IVP; Site: left antecubital; ko1 15:15 Follow up: Response: No adverse reaction ko1 15:39 Drug: Potassium Chloride PO 20 mEq PO once Route: PO; ko1 15:52 Follow up: Response: No adverse reaction ko1 Medication: 15:50 VIS not applicable for this client. ko1 Intake: 16:00 IV: 1000ml; Total: 1000ml. ko1 Outcome: 15:50 Discharge ordered by MD. canseco 16:04 Discharged to home ambulatory, with family, ko1 16:04 Condition: stable 16:04 Discharge instructions given to patient, family, Instructed on discharge instructions, follow up and referral plans. medication usage, Demonstrated understanding of instructions, follow-up care, medications, Prescriptions given X 1, 16:05 Patient left the ED. ko1 Signatures: Dispatcher [employer] EDOK Liseth Pelayo, SHANEL [place]-Margo Welch RN RN ll1 Daniel Srinivasan RN RN as6 Bere Ray, RN RN ko1 Sybil Howe mg5
--- NOTE | 2023-12-21 15:50 | EDPHYS ---
Physician Documentation [facility] Name: Kelly Hill Age: 28 yrs Sex: Female : 1995 Arrival Date: 12/21/2023 Time: 11:50 Bed 8 Private MD: ED Physician Andres Savage HPI: 12/20 13:57 This 28 yrs old Female presents to ER via Ambulatory with complaints of Nausea, Back kb Pain, Abdominal Pain. 13:57 Patient is a 28-year-old female who presents for nausea headache, diarrhea, low back kb and abdominal cramping for 4 days. Reports vomiting on Wednesday only. Denies fever. LMP first week of November.. 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 - Infectious Disease History:: Denies. - Social history:: Smoking status: Patient denies any tobacco usage or history of. ROS: 13:57 Constitutional: As per HPI kb Exam: 13:57 Constitutional: This is a well developed, well nourished patient who is awake, alert, kb and in no acute distress. Head/Face: Normocephalic, atraumatic. ENT: Moist Mucous membranes Cardiovascular: Regular rate Respiratory: Respirations even and unlabored. No increased work of breathing. Talking in full sentences Abdomen/GI: Soft, non-tender. No distention Back: No spinal tenderness. No costovertebral tenderness. Full range of motion. Skin: Warm, dry with normal turgor. Normal color. MS/ Extremity: Pulses equal, no cyanosis. Neurovascular intact. Full, normal range of motion. Neuro: Awake and alert, GCS 15, oriented to person, place, time, and situation. Moves all extremities. Normal gait. Vital Signs: 11:57 BP 119 / 78; Pulse 90; Resp 15 S; Temp 98.7(O); Pulse Ox 100% on R/A; Weight 97.52 kg as6 (R); Height 5 ft. 4 in. (R); Pain 3/10; 14:45 BP 115 / 68; Pulse 85; Resp 16; Pulse Ox 99% ; ko1 15:50 BP 124 / 72; Pulse 88; Resp 16; Pulse Ox 99% ; ko1 11:57 Body Mass Index 36.90 (97.52 kg, 162.56 cm) as6 11:57 Pain Scale: Adult as6 MDM: 12:27 Patient medically screened. kb 13:59 Differential diagnosis: Nonspecific abd pain, viral gastroenteritis, uti, . kb Data reviewed: vital signs, nurses notes. 15:49 Counseling: I had a detailed discussion with the patient and/or guardian regarding the kb historical points, exam findings, and any diagnostic results supporting the discharge/admit diagnosis, lab results, radiology results, the need for outpatient follow up, a family practitioner, to return to the emergency department if symptoms worsen or persist or if there are any questions or concerns that arise at home. 16:02 Response to treatment: the patient's symptoms have markedly improved after treatment. kb 12/20 12:59 Order name: CBC with Diff; Complete Time: 15:36 kb 12/20 12:59 Order name: CMP; Complete Time: 15:36 kb 12/20 12:59 Order name: Lipase; Complete Time: 15:36 kb 12/20 12:59 Order name: Test, Urine; Complete Time: 14:03 kb 12/20 12:59 Order name: Urinalysis w/ reflexes; Complete Time: 14:04 kb 12/20 14:03 Order name: CT Abd/Pelvis - IV Contrast Only; Complete Time: 14:52 kb 12/20 12:59 Order name: IV Saline Lock; Complete Time: 14:49 kb 12/20 12:59 Order name: Labs collected and sent; Complete Time: 14:49 kb Administered Medications: 14:59 Drug: NS 0.9% IV 1000 ml IV at 1000 ml once Route: IV; Rate: 1000 ml; Site: left ko1 antecubital; 16:00 Follow up: Response: No adverse reaction; IV Status: Completed infusion; IV Intake: ko1 1000ml 14:59 Drug: Ondansetron IVP 4 mg IVP once; over 2 minutes Route: IVP; Site: left antecubital; ko1 15:15 Follow up: Response: No adverse reaction; Nausea is decreased ko1 14:59 Drug: Ketorolac IVP 15 mg IVP once Route: IVP; Site: left antecubital; ko1 15:15 Follow up: Response: No adverse reaction ko1 15:39 Drug: Potassium Chloride PO 20 mEq PO once Route: PO; ko1 15:52 Follow up: Response: No adverse reaction ko1 Disposition Summary: 12/21/23 15:50 Discharge Ordered Notes: Location: Home kb Condition: Stable kb Diagnosis - Lower abdominal pain, unspecified kb - Diarrhea, unspecified kb Followup: kb - With: Emergency Department - When: As needed - Reason: Worsening of condition Followup: kb - With: Private Physician - When: 2 - 3 days - Reason: Recheck today's complaints, Continuance of care, Re-evaluation by your physician Discharge Instructions: - Discharge Summary Sheet kb - Viral Gastroenteritis, Adult, [id number] kb Forms: - Medication Reconciliation Form kb - Thank You Letter kb - Antibiotic Education kb - Prescription Opioid Use kb - Patient Portal Instructions kb - Leadership Thank You Letter kb Prescriptions: - ondansetron 4 mg Oral Tablet,disintegrating - take 1 tablet ORAL route every 6 hours As needed as needed for nausea and kb vomiting; 12 tablet; Refills: 0, Product Selection Permitted Signatures: Dispatcher [employer] Liseth Diaz, CASTING AND CURING OPERATOR-C CASTING AND CURING OPERATOR-Daniel Alves, RN RN as6 Bere Ray, RN RN ko1
[2023-12-21 16:36] VITALS: BP 124/72; TEMP 98.7; O2SAT 99
== END 2023-12-21 16:05 | disposition home or self-care (01) ==
LOC: ER 11:50
DX: R10.30 Lower abdominal pain, unspecified (principal); R19.7 Diarrhea, unspecified
CPT/HCPCS: 36415; 74177; 80053; 81001; 81025; 83690; 85025; J2405; J7030; Q9967

== ENCOUNTER 2024-07-03 08:04 | Emergency (ER) | payer SELFPAY ==
--- OUTSIDE RECORDS SUMMARY | 2024-07-03 08:07 | XMS REPORT | Continuity of Care Document ---
Author Name Unknown Address [address] [facility] [address] [place] [address] [facility] Address [address] [facility] [address] [place] [address] Care Team Providers Care Roller Print Tender Name Role Phone PCP, PATIENT DOES NOT HAVE A Primary Care Physic viviana Unavailable EVELYN_[email or web address]_S Attending Clinician Unavaila DINORAH Cunningham Attending Clinician UnavailDINORAH Berger Attending Clinician UnavailJunior Garsia MD Attending Clinician [phone] JUNIOR VILLATORO Attending Clinician Unavail able JUNIOR VILLATORO Attending Clinician Unavail able Doctor Unassigned, [place] Attending Clinician U Stacia Costello MD Attending Clinician [phone] NERY MOLINA Attending Clinician Unavailable Nery Molina MD Attending Clinician [phone] PARVEZ VAZQUEZ Attending Clinician Unavailable STACIA FERREIRA Attending Clinician Unavailable Angie Sinclair PA-C Attending Clinician [phone] ANGIE SINCLAIR Attending Clinician Unavailable MARGARITA FERNANDEZ Attending Clinician Unavailable MANUEL OJEDA Attending Clinician Unavailabl e EVELYN_GCBZW_Froilana_S Admitting Clinician UnavailDINORAH Berger Admitting Clinician UnavailJUNIOR Garsia Admitting Clinician Unavail able NERY MOLINA Admitting Clinician Unavailable MANUEL OJEDA Admitting Clinician Unavailabl e STACIA FERREIRA Admitting Clinician Unavailable Payers Payer Name Policy Type Policy Number Effective Date Expirati on Date Source [facility] [id number] 2023 00:00:00 [facility] [id number] 2022 00:00:00 [facility] KRISTA ESPINOZA [id number] 2019 00:00:00 Problems Condition Name Condition Details Condition Category Status Onset Date Resolution Date Last Treatment Date Treating Clinician Comments Source Family planning, IUD (intrauter ine device) check/rein sertion/re moval Family planning, IUD (intrauter ine device) check/rein sertion/re moval Disease Active 8-03 00:00: 00 [facility] Chronic midline low back pain with sciatica, sciatica laterality unspecifie d Chronic midline low back pain with sciatica, sciatica laterality unspecifie d Disease Active 7 00:00: 00 [facility] Mass overlappin g multiple quadrants of left breast Mass overlappin g multiple quadrants of left breast Disease Active 03-25 00:00: 00 [facility] Excessive or frequent menstruati on Excessive or frequent menstruati on Disease Active 2021-09 0-05 00:00: 00 [facility] Candidiasi s of breast Candidiasi s of breast Disease Active - 00:00: 00 [facility] Antibiotic long-term use Antibiotic long-term use Disease Active 9-20 00:00: 00 [facility] Pain pelvic Pain pelvic Disease Active 9- 00:00: 00 [facility] Counseling for control regarding intrauteri ne device (IUD) Counseling for control regarding intrauteri ne device (IUD) Disease Active 04-08 00:00: 00 [facility] Nexplanon in place Nexplanon in place Disease Active 04-08 00:00: 00 [facility] Oral contracept ion initiation Oral contracept ion initiation Disease Active 0 2-12 00:00: 00 [facility] BMI 36.0-36.9, adult BMI 36.0-36.9, adult Disease Active 2018-09 00:00: 00 [facility] Allergies, Adverse Reactions, Alerts Allergy Name Allergy Type Status Severity Reaction(s) Onset Date Inactive Date Treating Clinician Comments Source NO KNOWN ALLERGIE S Drug Class Active [facility] Social History Social Habit Start Date Stop Date Quantity Comments Source History of tobacco use User of smokeless tobacco [facility] Alcohol intake 2023-05-13 00:00:00 2023-05-13 00:00:00 Ex-drinker (finding) [facility] History of Social function 2023-05-03 00:00:00 2023-05-03 00:00:00 [facility] Exposure to SARS-CoV-2 (event) 2022-06-12 00:00:00 2022-06-22 14:23:00 Not sure [facility] Tobacco use and exposure 2022-06-02 00:00:00 2022-06-02 00:00:00 Former smokeless tobacco user [facility] Sex Assigned At 1995 00:00:00 1995 00:00:00 [facility] Smoking Status Start Date Stop Date Source Never smoked tobacco [facility] Medications Ordered Medication Name Filled Medication Name Start Date Stop Date Current Medication? Ordering Clinician Indication Dosage Frequency Signature (SIG) Comments Components Source norgestimat e-ethinyl estradioL (TRI-LO-SPR INTEC) 0.18/0.215/ 0.25 mg-25 mcg tablet 04-15 00:00: 00 Yes [id number] 1{tbl} Take 1 tablet by mouth in the morning. [facility] nystatin 100,000 unit/gram cream 03-25 00:00: 00 Yes [id number] Apply to area(s) 2 (two) times daily. [facility] triamcinolo ne 0.025 % cream 03-25 00:00: 00 Yes [id number] Apply to area(s) 2 (two) times daily. [facility] levonorgest reL (KYLEENA) IUD 1 Device 2022-1 0-10 21:15: 00 06-22 20:23 :00 No [id number] 1{devic e} [facility] miSOPROStoL 200 mcg tablet 2021-09 0-04 00:00: 00 06-22 00:00 :00 No [id number] Take one tablet the night before IUD insertion procedure and take one tablet the morning of the IUD insertion procedure. This is not for abortive treatment; patient will have IUD insertion. [facility] fluconazole 200 mg tablet 06-02 00:00: 00 Yes [id number] 200mg Take 1 tablet by mouth in the morning. [facility] triamcinolo ne 0.025 % cream 06-02 00:00: 00 03-25 00:00 :00 No [id number] Apply to area(s) 2 (two) times daily. [facility] nystatin 100,000 unit/gram cream 06-02 00:00: 00 03-25 00:00 :00 No [id number] Apply to area(s) 2 (two) times daily. [facility] ondansetron (ZOFRAN (PF)) injection 4 mg 11-28 21:30: 00 11-28 20:43 :00 No 4mg 4 mg, Slow IV Push, ONCE, 1 dose, On Wed11/28/21 at 1630, NAIMA [facility] morpHINE injection 4 mg 11-28 21:30: 00 11-28 20:47 :00 No 4mg 4 mg, Slow IV Push, ONCE, 1 dose, On Wed11/28/21 at 1630, STAT [facility] ketorolac (TORADOL) injection 30 mg 11-28 21:30: 00 11-28 20:45 :00 No 30mg 30 mg, Slow IV Push, ONCE, 1 dose, On Wed11/28/21 at 1630, NAIMA
Fa culty member approving Restricted medication : NERY MOLINA [facility] ibuprofen 800 mg tablet 2022-0 3-18 00:00: 00 Yes [id number] 800mg Take 1 tablet by mouth every 8 (eight) hours. [facility] HYDROcodone -acetaminop hen 5-325 mg tablet 11-28 00:00: 00 12-06 04:59 :00 No [id number] 1{tbl} Take 1 tablet by mouth every 4 (four) hours as needed for Pain (scale 4-6) for up to 7 days. Indication s: acute pain [facility] No known medications 05-15 17:49: 05 No [facility] No known medications No Un maria m [facility] Vital Signs Vital Name Observation Time Observation Value Comments S ource Systolic blood pressure 2023-05-13 16:29:00 109 mm[Hg] [facility] Diastolic blood pressure 2023-05-13 16:29:00 74 mm[Hg] [facility] Heart rate 2023-05-13 16:29:00 66 /min [facility] Respiratory rate 2023-05-13 16:29:00 18 /min [facility] Body height 2023-05-13 16:29:00 165.1 cm [facility] Body weight 2023-05-13 16:29:00 99.791 kg [facility] BMI 2023-05-13 16:29:00 36.61 kg/m2 [facility] Systolic blood pressure 2023-05-03 18:05:00 109 mm[Hg] [facility] Diastolic blood pressure 2023-05-03 18:05:00 76 mm[Hg] [facility] Heart rate 2023-05-03 18:05:00 79 /min [facility] Respiratory rate 2023-05-03 18:05:00 18 /min [facility] Body height 2023-05-03 18:05:00 165.1 cm [facility] Body weight 2023-05-03 18:05:00 100.608 kg [facility] BMI 2023-05-03 18:05:00 36.91 kg/m2 [facility] Systolic blood pressure 2023-04-15 18:03:00 126 mm[Hg] [facility] Diastolic blood pressure 2023-04-15 18:03:00 77 mm[Hg] [facility] Heart rate 2023-04-15 18:03:00 69 /min [facility] Body temperature 2023-04-15 18:03:00 36.72 Tessa [facility] Respiratory rate 2023-04-15 18:03:00 16 /min [facility] Body height 2023-04-15 18:03:00 165.1 cm [facility] Body weight 2023-04-15 18:03:00 99.655 kg [facility] BMI 2023-04-15 18:03:00 36.56 kg/m2 [facility] Oxygen saturation in Arterial blood by Pulse oximetry 2023-04-15 18:03:00 98 /min [facility] Systolic blood pressure 2023-03-26 14:21:00 127 mm[Hg] [facility] Diastolic blood pressure 2023-03-26 14:21:00 88 mm[Hg] [facility] Heart rate 2023-03-26 14:21:00 82 /min [facility] Respiratory rate 2023-03-26 14:21:00 18 /min [facility] Body height 2023-03-26 14:21:00 165.1 cm [facility] Body weight 2023-03-26 14:21:00 100.699 kg [facility] BMI 2023-03-26 14:21:00 36.94 kg/m2 [facility] Oxygen saturation in Arterial blood by Pulse oximetry 2023-03-26 14:21:00 99 /min [facility] Systolic blood pressure 2023-03-25 19:08:00 110 mm[Hg] [facility] Diastolic blood pressure 2023-03-25 19:08:00 73 mm[Hg] [facility] Heart rate 2023-03-25 19:08:00 72 /min [facility] Body temperature 2023-03-25 19:08:00 36.72 Tessa [facility] Respiratory rate 2023-03-25 19:08:00 18 /min [facility] Body height 2023-03-25 19:08:00 162.6 cm [facility] Body weight 2023-03-25 19:08:00 100.245 kg [facility] BMI 2023-03-25 19:08:00 37.93 kg/m2 [facility] Systolic blood pressure 2022-06-22 19:24:00 120 mm[Hg] [facility] Diastolic blood pressure 2022-06-22 19:24:00 78 mm[Hg] [facility] Heart rate 2022-06-22 19:24:00 82 /min [facility] Body temperature 2022-06-22 19:24:00 37.06 Tessa [facility] Respiratory rate 2022-06-22 19:24:00 16 /min [facility] Body height 2022-06-22 19:24:00 162.6 cm [facility] Body weight 2022-06-22 19:24:00 102.059 kg [facility] BMI 2022-06-22 19:24:00 38.62 kg/m2 [facility] Oxygen saturation in Arterial blood by Pulse oximetry 2022-06-22 19:24:00 97 /min [facility] Systolic blood pressure 2022-06-16 18:26:00 112 mm[Hg] [facility] Diastolic blood pressure 2022-06-16 18:26:00 79 mm[Hg] [facility] Heart rate 2022-06-16 18:26:00 77 /min [facility] Body temperature 2022-06-16 18:26:00 36.78 Tessa [facility] Respiratory rate 2022-06-16 18:26:00 18 /min [facility] Body height 2022-06-16 18:26:00 162.6 cm [facility] Body weight 2022-06-16 18:26:00 103.874 kg [facility] BMI 2022-06-16 18:26:00 39.31 kg/m2 [facility] Systolic blood pressure 2022-06-02 15:12:00 116 mm[Hg] [facility] Diastolic blood pressure 2022-06-02 15:12:00 82 mm[Hg] [facility] Heart rate 2022-06-02 15:12:00 82 /min [facility] Body temperature 2022-06-02 15:12:00 36.72 Tessa [facility] Respiratory rate 2022-06-02 15:12:00 18 /min [facility] Body height 2022-06-02 15:12:00 162.6 cm [facility] Body weight 2022-06-02 15:12:00 104.781 kg [facility] BMI 2022-06-02 15:12:00 39.65 kg/m2 [facility] Systolic blood pressure 2021-11-28 22:15:00 115 mm[Hg] [facility] Diastolic blood pressure 2021-11-28 22:15:00 75 mm[Hg] [facility] Heart rate 2021-11-28 22:15:00 73 /min [facility] Respiratory rate 2021-11-28 22:15:00 18 /min [facility] Oxygen saturation in Arterial blood by Pulse oximetry 2021-11-28 22:15:00 99 /min [facility] Body temperature 2021-11-28 19:34:00 37.06 Tessa [facility] Body weight 2021-11-28 19:34:00 84.823 kg [facility] BMI 2021-11-28 19:34:00 31.60 kg/m2 [facility] Systolic blood pressure 2021-05-15 21:49:00 119 mm[Hg] [facility] Diastolic blood pressure 2021-05-15 21:49:00 79 mm[Hg] [facility] Heart rate 2021-05-15 21:49:00 80 /min [facility] Body temperature 2021-05-15 21:49:00 37 Tessa [facility] Respiratory rate 2021-05-15 21:49:00 18 /min [facility] Body height 2021-05-15 21:49:00 163.8 cm [facility] Body weight 2021-05-15 21:49:00 84.823 kg [facility] BMI 2021-05-15 21:49:00 31.60 kg/m2 [facility] Procedures Procedure Date / Time Performed Performing Clinicia n Source XR SPINE THORACIC 2 VW 2023-05-03 19:09:15 Temo Villatoro [facility] BI ULTRASOUND BREAST COMPLETE LEFT 2023-04-30 19:18:28 Dinorah Cooper [facility] MR LUMBAR SPINE WO CONTRAST 2023-04-13 18:01:00 Junior Villatoro [facility] PATIENT FINANCIAL POLICY 2023-03-25 18:52:26 Doctor Unassigned, [place] [facility] POCT TEST 2022-06-22 00:00:00 Blessing Cooper [facility] ASSIGNMENT OF BENEFITS 2022-06-16 18:15:45 Docto r Unassigned, [place] [facility] US OVARY TORSION 2021-11-28 21:48:37 Nery Molina [facility]YSIS 2021-11-28 [facility]OLIC [facility] ([id number]) 2021-11-28 20:42:00 Nery Molina [facility] CBC WITH DIFF 2021-11-28 20:42:00 Nery Molina [facility] POCT TEST 2021-11-28 20:21:00 Josias Molina [facility] NOTICE OF PRIVACY PRACTICES 2021-11-28 19:25:22 Doctor Unassigned, [place] [facility] CONSENT/REFUSAL FOR DIAGNOSIS AND TREATMENT 2021-11-28 19:25:13 Doctor Unassigned, [place] [facility] Encounters Start Date/Time End Date/Time Encounter Type Admission Type Attending Clinicians Care Facility Care Department Encounter ID Source 2023-07-13 00:00:00 2023-07-13 00:00:00 Outpatient GC_GCBZW_Ka diyala_S [facility] [id number] [facility] 2023-05-13 11:30:00 2023-05-13 11:48:14 Outpatient R DINORAH COOPER CHERYAL [facility] [id number] [facility] 2023-05-13 11:30:00 2023-05-13 11:48:14 Office Visit Dinorah Cooper [facility] 1.840.114 350.1.13.10 4.2.7.2.686 [id number] [facility] 2023-05-03 13:48:37 2023-05-03 23:59:00 Hospital Encounter Junior Villatoro [facility] 1..840.114 350.1.13.10 4.2.7.2.686 [id number] [facility] 2023-05-03 13:00:00 2023-05-03 13:48:21 Outpatient R TAYLER [facility] [id number] [facility] 2023-05-03 13:00:00 2023-05-03 13:48:21 Office Visit Junior Villatoro [facility] 1..840.114 350.1.13.10 4.2.7.2.686 [id number] [facility] 2023-04-30 13:31:46 2023-04-30 23:59:00 Outpatient R DINORAH COOPER CHERYAL [facility] [id number] [facility] 2023-04-30 13:31:46 2023-04-30 23:59:00 Hospital Encounter Dinorah Cooper [facility] 1..840.114 350.1.13.10 4.2.7.2.686 [id number] [facility] 2023-04-15 13:00:00 2023-04-15 13:18:17 Outpatient R SMOOTHJOSE LUISJUANITADINORAH HARMON KALEDEN CRISTINAOK [facility] [id number] [facility] 2023-04-15 13:00:00 2023-04-15 13:18:17 Office Visit Kenneth Dinorah [facility] 1..840.114 350.1.13.10 4.2.7.2.686 [id number] [facility] 2023-04-13 12:22:29 2023-04-13 23:59:00 Outpatient JUNIOR GONZALEZ HOWARD [facility] [id number] [facility] 2023-04-13 12:22:29 2023-04-13 23:59:00 Hospital Encounter Junior Villatoro [facility] 1..840.114 350.1.13.10 4.2.7.2.686 [id number] [facility] 2023-04-07 00:00:00 2023-04-07 00:00:00 Outpatient R KENNETHDINORAH KENNETH DINORAH [facility] [id number] [facility] 2023-03-26 09:20:00 2023-03-26 10:24:57 Outpatient JUNIOR GONZALEZ HOWARD [facility] [id number] [facility] 2023-03-26 09:20:00 2023-03-26 10:24:57 Office Visit Junior [facility]atoro [facility] 1..840.114 350.1.13.10 4.2.7.2.686 [id number] [facility] 2023-03-25 14:00:00 2023-03-25 14:21:35 Outpatient R DINORAH COOPER CHERYAL [facility] [id number] [facility] 2023-03-25 14:00:00 2023-03-25 14:21:35 Office Visit Dinorah Cooper [facility] 1.2.840.114 350.1.13.10 4.2.7.2.686 [id number] [facility] 2023-03-25 00:00:00 2023-03-25 00:00:00 Orders Only Doctor Unassigned, [place] [facility] 1.2.840.114 350.1.13.10 4.2.7.2.686 [id number] [facility] 2023-03-23 09:00:00 2023-03-23 09:00:00 Outpatient R DINORAH COOPER CHERYAL [facility] [id number] [facility] 2023-03-23 09:00:00 2023-03-23 09:00:00 Outpatient R DINORAH COOPER CHERYAL [facility] [id number] [facility] 2022-06-22 14:30:00 2022-06-22 14:49:02 Outpatient R DINORAH COOPER CHERYAL [facility] [id number] [facility] 2022-06-22 14:30:00 2022-06-22 14:49:02 Office Visit Dinorah Cooper [facility] 1.2.840.114 350.1.13.10 4.2.7.2.686 [id number] [facility] 2022-06-16 13:30:00 2022-06-16 13:39:44 Outpatient R DINORAH COOPER CHERYAL [facility] [id number] [facility] 2022-06-16 13:30:00 2022-06-16 13:39:44 Office Visit Dinorah Cooper [facility] 1.2.840.114 350.1.13.10 4.2.7.2.686 [id number] [facility] 2022-06-16 00:00:00 2022-06-16 00:00:00 Orders Only Doctor Unassigned, [place] [facility] 1.2840.114 350.1.13.10 4.2.7.2.686 [id number] [facility] 2022-06-02 11:00:00 2022-06-02 11:00:00 Office Visit Dinorah Cooper [facility] 1.2840.114 350.1.13.10 4.2.7.2.686 [id number] [facility] 2022-06-02 11:00:00 2022-06-02 10:25:45 [facility] [id number] [facility] 2022-03-02 00:00:00 2022-03-02 00:00:00 Telephone Stacia Ferreira [facility] 1.2840.114 350.1.13.10 4.2.7.2.686 [id number] [facility] 2021-11-28 14:36:00 2021-11-28 17:20:00 Emergency X NERY MOLINA [facility] ERT [id number] [facility] 2021-11-28 14:36:00 2021-11-28 17:20:00 Emergency Nery Molina [facility] 1.2840.114 350.1.13.10 4.2.7.2.686 [id number] [facility] 2021-11-28 00:00:00 2021-11-28 00:00:00 Telephone Stacia Ferreira [facility] 1..840.114 350.1.13.10 4.2.7.2.686 [id number] [facility] 2021-11-28 00:00:00 2021-11-28 00:00:00 Orders Only Doctor Unassigned, [place] [facility] 1.2.840.114 350.1.13.10 4.2.7.2.686 [id number] [facility] 2021-11-05 10:00:00 2021-11-05 10:00:00 Outpatient PARVEZ BATEMAN [facility] [id number] [facility] 2021-10-09 10:30:00 2021-10-09 10:30:00 Outpatient STACIA RECINOS [facility] [id number] [facility] 2021-06-04 09:30:00 2021-06-04 09:30:00 Outpatient R STACIA FERREIRA [facility] [id number] [facility] 2021-05-15 16:38:00 2021-05-15 17:02:35 Office Visit Stacia Ferreira [facility] 1..840.114 350.1.13.10 4.2.7.2.686 [id number] [facility] 2021-05-15 16:15:00 2021-05-15 16:15:00 Outpatient ANGIE MITCHELL [facility] [id number] [facility] 2021-05-14 00:00:00 2021-05-14 00:00:00 Telephone Kyra Ferreiraen [facility] 1.2.840.114 350.1.13.10 4.2.7.2.686 [id number] [facility] 2021-04-08 14:00:00 2021-04-08 14:00:00 Outpatient STACIA RECINOS [facility] [id number] [facility] 2021-03-24 10:45:00 2021-03-24 10:45:00 Outpatient ANGIE MITCHELL [facility] [id number] [facility] 2020-11-01 08:15:00 2020-11-01 08:15:00 Outpatient R MARGARITA FERNANDEZ [facility] [id number] [facility] 2020-10-03 13:15:00 2020-10-03 13:15:00 Outpatient R MANUEL OJEDA [facility] [id number] [facility] 2020-09-25 09:33:33 2020-09-25 23:59:00 Outpatient MANUEL HENDERSON [facility] [id number] [facility] 2020-08-30 09:45:00 2020-08-30 09:45:00 Outpatient MANUEL HENDERSON [facility] [id number] [facility] 2020-05-21 08:30:00 2020-05-21 08:30:00 Outpatient ANGIE MITCHELL [facility] [id number] [facility] 2020-03-08 00:00:00 2020-03-08 00:00:00 Refill Kyra Ferreiraen [address].840.114 350.1.13.10 4.2.7.2.686 [id number] 2020-01-09 00:00:00 2020-01-09 00:00:00 Telephone Kyra Ferreiraen [address]840.114 350.1.13.10 4.2.7.2.686 [id number] 2019-12-04 13:00:00 2019-12-04 13:00:00 Outpatient STACIA RECINOS [facility] [id number] [facility] 2019-12-04 00:00:00 2019-12-04 00:00:00 Telephone Stacia Ferreira [facility] 1.2.840.114 350.1.13.10 4.2.7.2.686 [id number] 2019-12-04 00:00:00 2019-12-04 00:00:00 Orders Only Doctor Unassigned, [place] [facility] 1.2.840.114 350.1.13.10 4.2.7.2.686 [id number] 2019-11-21 00:00:00 2019-11-21 00:00:00 Telephone Stacia Ferreira [facility] 1.2.840.114 350.1.13.10 4.2.7.2.686 [id number] 2019-11-16 10:00:00 2019-11-16 10:00:00 Outpatient R YAHIR ANGIE [facility] [id number] [facility] 2019-10-24 15:08:52 2019-10-27 18:45:00 Inpatient P STACIA FERREIRA [facility] [id number] [facility] 2019-10-05 13:00:00 2019-10-05 14:51:16 Outpatient R STACIA FERREIRA [facility] [id number] [facility] Results Test Description Test Time Test Comments Results Result Co mments Source [facility] [id number] 20:28:00* Test Item Value Reference Range Interpretation Comme nts POCT PREG (test code = 1605) Negative On board controls acceptable with C Line (test code = 3574) Yes POCT PREG LOT # (test code = 3575) POCT PREG TEST DATE ( test code = 3576) [facility] ([id number])2021-11-28 21:13:22* Test Item Value Reference Range Interpretation Comme nts NA (test code = 2715926425) 138 mmol/L 135-145 K (test code = 5888282496) 4.1 mmol/L 3.5-5.0 CL (test code = 3054436363) 104 mmol/L 98-108 CO2 TOTAL (test code = 9691294487) 22 mmol/L 23-31 L AGAP (test code = 4421619358) 2-16 BUN (test code = 6652739591) 12 mg/dL 7-23 GLUCOSE (test code = 9507868543) 84 mg/dL 70-110 CREATININE (test code = 2796166029) 0.65 mg/dL 0.50-1.04 TOTAL BILI (test code = 1388534972) 0.8 mg/dL 0.1-1.1 CALCIUM (test code = 9564213788) 9.2 mg/dL 8.6-10.6 T PROTEIN (test code = 4467699231) 7.5 g/dL 6.3-8.2 ALBUMIN (test code = 1535813767) 4.5 g/dL 3.5-5.0 ALK PHOS (test code = 1372849450) 55 U/L 34-122 ALTv (test code = 1742-6) 24 U/L 5-35 AST(SGOT) (test code = 6375820145) 27 U/L 13-40 eGFR (test code = 2083127262) mL/min/1.73m2 ALVARADO (test code = ALVARADO) Association [...] imaging tests). Lab Interpretation (test code = 97607-3) Abnormal [facility] WITH [id number] 21:03:02* Test Item Value Reference Range Interpretation Comme nts WBC (test code = 6690-2) See_Comment [Automated Rebelle Bridala ge] The system which generated this result transmitted reference range: 4.30 - 11.10 10*3/?L. The reference range was not used to interpret this result as normal/abnormal. RBC (test code = 789-8) See_Comment [Automated Rebelle Bridala ge] The system which generated this result [...] 34.2 g/dL 31.6-35.1 RDW-SD (test code = 39031-9) 37.2 fL 39.0-49.9 L RDW-CV (test code = 788-0) 12.4 % 12.0-15.5 PLT (test code = 777-3) See_Comment [Automated Rebelle Bridala ge] The system which generated this result transmitted reference range: 166 - 358 10*3/?L. The reference range was not used to interpret this result as normal/abnormal. MPV (test code = 99261-7) 10.2 fL 9.5-12.9 NRBC/100 WBC (test code = 9449372660) See_Comment [Automated [employer] ssage] The system which generated this result transmitted reference range: 0.0 - 10.0 /100 WBCs. The reference range was not used to interpret this result as normal/abnormal. NRBC x10^3 (test code = 0108871813) <0.01 See_Comment [Automated messa ge] The system which generated this result transmitted reference range: 10*3/?L. The reference range was not used to interpret this result as normal/abnormal. GRAN MAT (NEUT) % (test code = 770-8) 61.6 % IMM GRAN % (test code = 3164386265) 0.30 % LYMPH % (test code = 736-9) 30.7 % MONO % (test code = 5905-5) 4.6 % EOS % (test code = 713-8) 2.4 % BASO % (test code = 706-2) 0.4 % GRAN MAT x10^3(ANC) (test code = 1912960706) 4.93 10*3/uL 1.88-7.09 IMM GRAN x10^3 (test code = 2868248853) <0.03 0.00-0.06 LYMPH x10^3 (test code = 731-0) 2.45 10*3/uL 1.32-3.29 MONO x10^3 (test code = 742-7) 0.37 10*3/uL 0.33-0.92 EOS x10^3 (test code = 711-2) 0.19 10*3/uL 0.03-0.39 BASO x10^3 (test code = 704-7) 0.03 10*3/uL 0.01-0.07 Lab Interpretation (test code = 98717-3) [facility] [id number] 20:21:00* Test Item Value Reference Range Interpretation Comme nts POCT PREG (test code = 1605) negative On board controls acceptable with C Line (test code = 3574) present POCT PREG LOT # (test code = 3575) [id number] POCT PREG TEST DATE ( test code = 3575) Lab Interpretation (test cod e = 76265-8) Normal [facility]"
[2024-07-03] MEDS ORDERED: NA CHLORIDE 0.9% 1,000 ML ONE (08:25)
[2024-07-03] MEDS ORDERED: ONDANSETRON 4 MG/2 ML VIAL ONE (08:25)
[2024-07-03 08:46] LABS: Absolute Basophils 0.1 K/uL (0-0.5); Absolute Eosinophils 0.6 K/uL (0-0.5); Absolute Lymphocytes (CBC) 2.7 K/uL (0.7-4.9); Absolute Monocytes 0.5 K/uL (0.1-1.3); Absolute Neutrophil 7.3 K/uL (1.8-8.0); Basophils % 0.5 % (0-1.3); Eosinophils % 5.4 % (0-4.4); Hemoglobin 14.6 g/dL (12.0-15.0); Lymphocytes % 24.2 % (15.3-44.8); MCH 29.3 pg (27.0-35.0); MCHC 34.7 g/dL (32.0-36.0); MCV 84.5 fL (80-100); MPV 8.1 fL (7.6-11.3); Monocytes % 4.3 % (3.3-12.3); Neutrophils % 65.6 % (41.7-73.7); Nucleated Red Blood Cells % 0.1 % (0-0); Platelets 358 thou/uL (152-406); RBC Red Blood Cell Count 4.97 M/uL (3.86-4.86); Red Cell Distribution Width 13.4 % (12.1-15.2)
[2024-07-03] MEDS ORDERED: METOCLOPRAMIDE 10 MG/2mL INJ ONE (09:06)
[2024-07-03] MEDS ORDERED: DIPHENHYDRAMINE 50 MG/ML VIAL ONE (09:06)
[2024-07-03 09:08] LABS: ALT/SGPT 25 U/L (13-56); Albumin 4.2 g/dL (3.4-5.0); Alkaline Phosphatase 54 U/L (45-117); Anion Gap 12.5 mEq/L (5.0-15.0); BUN Blood Urea Nitrogen 12 mg/dL (7-18); Bicarbonate 20 mEq/L (21-32); Bilirubin Total 1.2 mg/dL (0.2-1.0); Globulin 4.1 g/dL (2.3-3.5); Glomerular Filtration Rate 114 ml/min (=/>90); Glucose Level 102 mg/dL (74-106); Lipase 24 U/L (13-75); Potassium 3.5 mEq/L (3.5-5.1); Protein, Total 8.3 g/dL (6.4-8.2); Sodium Level 136 mEq/L (136-145)
[2024-07-03 09:10] LABS: AST/SGOT < 10 U/L (15-37)
[2024-07-03 09:15] LABS: Specific Gravity > 1.030 (1.005-1.030)
[2024-07-03 09:17] LABS: Specific Gravity > 1.030 (1.005-1.030); Urine Bacteria <20 /HPF (<20); Urine Bilirubin NEGATIVE (Negative); Urine Blood Negative (Negative); Urine Clarity Extremely Turbid (Clear); Urine Color Yellow (Yellow); Urine Culture Reflex Order NOT NEEDED; Urine Glucose NEGATIVE (Negative); Urine Ketones 4+ (Over) (Negative); Urine Micro Reflex YN NO BILL MICROSCOPIC; Urine Mucus 4+ /HPF (None Seen); Urine Nitrite NEGATIVE (Negative); Urine Protein 1+ (Negative); Urine Urobilinogen 1+ (Normal); Urine WBC <5 /HPF (<5)
--- NOTE | 2024-07-03 10:00 | ER ---
Nurse's Notes [facility] Name: Kelly Hill Age: 28 yrs Sex: Female : 1995 Arrival Date: 07/03/2024 Time: 08:04 Bed 7 Private MD: Diagnosis: Hyperemesis gravidarum;Urinary tract infection Presentation: 07/03 08:14 Chief complaint: N/V x 3 days. Coronavirus screen: At this time, the client does not hb indicate any symptoms associated with coronavirus-19. Ebola Screen: No symptoms or risks identified at this time. Initial Sepsis Screen: Does the patient meet any 2 criteria? No. Patient's initial sepsis screen is negative. Does the patient have a suspected source of infection? No. Patient's initial sepsis screen is negative. Risk Assessment: Do you want to hurt yourself or someone else? Patient reports no desire to harm self or others. Onset of symptoms was June 30, 2024. 08:14 Method Of Arrival: Ambulatory hb 08:14 Acuity: JULISSA 3 hb Historical: - Allergies: 08:15 No Known Allergies; hb - Home Meds: 08:15 Ozempic 0.25 mg or 0.5 mg (2 mg/3 mL) subcutaneous Pen Injector 0.5 mg every week hb [Active]; - PMHx: 08:15 None; hb - PSHx: 08:15 Ankle - Left; hb - Immunization history:: Adult Immunizations up to date. - Infectious Disease History:: Denies. - Social history:: Smoking status: Reported history of juuling and/or vaping. - Family history:: not pertinent. Screenin:38 [facility] ED Fall Risk Assessment (Adult) History of falling in the last 3 months, kc6 including since admission No falls in past 3 months (0 pts) Confusion or Disorientation No (0 pts) Intoxicated or Sedated No (0 pts) Impaired Gait No (0 pts) Mobility Assist Device Used No (0 pt) Altered Elimination No (0 pt) Score/Fall Risk Level 0 - 2 = Low Risk Oriented to surroundings. Abuse screen: Denies threats or abuse. Denies injuries from another. Nutritional screening: No deficits noted. Tuberculosis screening: No symptoms or risk factors identified. Assessment: 08:37 General: Appears in no apparent distress. uncomfortable, well groomed, well developed, kc6 Behavior is calm, cooperative, appropriate for age. Pain: Complains of pain in abdomen. Neuro: Level of Consciousness is awake, alert, obeys commands, Oriented to person, place, time, situation, Appropriate for age. Cardiovascular: Capillary refill < 3 seconds. Respiratory: Airway is patent Trachea midline Respiratory effort is even, unlabored, pursed lip, Respiratory pattern is regular, symmetrical. GI: Abdomen is round non-distended, Pt is actively vomiting clear fluid, Bowel sounds present X 4 quads. Reports nausea, vomiting, Patient currently denies diarrhea. : No signs and/or symptoms were reported regarding the genitourinary system. EENT: No signs and/or symptoms were reported regarding the EENT system. Derm: No signs and/or symptoms reported regarding the dermatologic system. Skin is intact, is healthy with good turgor, Skin is pink, warm \T\ dry. Musculoskeletal: No signs and/or symptoms reported regarding the musculoskeletal system. Circulation, motion, and sensation intact. Capillary refill < 3 seconds, Range of motion: intact in all extremities. 09:12 Reassessment: Patient appears in no apparent distress at this time. No changes from kc6 previously documented assessment. Patient and/or family updated on plan of care and expected duration. Pain level reassessed. Patient is alert, oriented x 3, equal unlabored respirations, skin warm/dry/pink. Patient states symptoms have not improved. 09:41 Reassessment: Patient appears in no apparent distress at this time. No changes from kc6 previously documented assessment. Patient and/or family updated on plan of care and expected duration. Pain level reassessed. Patient is alert, oriented x 3, equal unlabored respirations, skin warm/dry/pink. Patient states feeling better. Patient states symptoms have improved. 10:16 Reassessment: Patient appears in no apparent distress at this time. No changes from kc6 previously documented assessment. Patient and/or family updated on plan of care and expected duration. Pain level reassessed. Patient is alert, oriented x 3, equal unlabored respirations, skin warm/dry/pink. Patient states feeling better. Patient states symptoms have improved. Vital Signs: 08:14 BP 125 / 97; Pulse 89; Resp 16; Temp 98.5(O); Pulse Ox 100% on R/A; Weight 90.72 kg; hb Height 5 ft. 4 in. ; Pain 0/10; 09:13 BP 130 / 80; Pulse 71; Resp 16 S; Pulse Ox 100% on R/A; kc6 09:41 BP 112 / 61; Pulse 74; Resp 18 S; Pulse Ox 100% on R/A; kc6 10:16 BP 103 / 60; Pulse 75; Resp 15 S; Pulse Ox 98% on R/A; kc6 08:14 Body Mass Index 34.33 (90.72 kg, 162.56 cm) hb 08:14 Pain Scale: Adult hb ED Course: 08:07 Patient arrived in ED. mg5 08:08 Nehemiah Scott MD is Attending Physician. rt 08:10 Jennifer Timmons RN is Primary Nurse. kc6 08:15 Triage completed. hb 08:16 Arm band placed on. hb 08:38 Patient has correct armband on for positive identification. Bed in low position. Call kc6 light in reach. Side rails up X2. Adult w/ patient. Pulse ox on. NIBP on. Door closed. Noise minimized. Lights dimmed. Pillow given. 08:38 Missed attempt(s): 20 gauge in left antecubital area. Inserted saline lock: 20 gauge in kc6 right wrist, using aseptic technique. Blood collected. Flushed with 10 mL NS. Patient maintains SpO2 saturation greater than 95% on room air. 10:16 No provider procedures requiring assistance completed. IV discontinued, intact, kc6 bleeding controlled, No redness/swelling at site. Pressure dressing applied. 10:17 Provided Education on: f/u with OBGYN. kc6 Administered Medications: 08:39 Drug: NS 0.9% IV 1000 ml IV at 1 bolus Per protocol; to be given as a bolus over 60 kc6 minutes Route: IV; Rate: 1 bolus; Site: right wrist; 10:16 Follow up: Response: No adverse reaction; IV Status: Completed infusion; IV Intake: kc6 1000ml 08:39 Drug: Ondansetron IVP 4 mg IVP once; over 2 minutes Route: IVP; Site: right wrist; kc6 09:05 Follow up: Response: No adverse reaction; Nausea unchanged kc6 09:12 Drug: metoCLOPramide IVP 10 mg IVP once; over 1 to 2 minutes Route: IVP; Site: right kc6 wrist; 09:29 Follow up: Response: No adverse reaction; Nausea is decreased; Vomiting decreased kc6 09:12 Drug: diphenhydrAMINE IVP 25 mg IVP once Route: IVP; Site: right wrist; kc6 09:29 Follow up: Response: No adverse reaction kc6 Medication: 10:17 VIS not applicable for this client. kc6 Intake: 10:16 IV: 1000ml; Total: 1000ml. kc6 Outcome: 10:00 Discharge ordered by . rt 10:16 Discharged to home ambulatory, with significant other, kc6 10:16 Condition: improved 10:16 Discharge instructions given to patient, significant other, Instructed on discharge instructions, follow up and referral plans. medication usage, Demonstrated understanding of instructions, follow-up care, medications, Prescriptions given X 2, 10:17 Patient left the ED. kc6 Signatures: Lashon Terry RN RN Jennifer Soria RN RN kc6 Nehemiah Scott MD MD rt [place], [place] mg5
--- NOTE | 2024-07-03 10:00 | EDPHYS ---
Physician Documentation [facility] Name: Kelly Hill Age: 28 yrs Sex: Female : 1995 Arrival Date: 07/03/2024 Time: 08:04 Bed 7 Private MD: ED Physician Nehemiah Scott HPI: 07/03 08:32 This 28 yrs old Female presents to ER via Ambulatory with complaints of Vomiting, rt Abdominal Pain. 08:32 Patient presents to the ED with nausea, vomiting for about 3 days. Reported having rt initially some abdominal pain but none currently. Patient states that she has not been able to keep anything down for the past day, feels weak, dehydrated. Denies other acute complaints, symptoms are moderate in severity, no other aggravating or alleviating factors.. Historical: - Allergies: 08:15 No Known Allergies; hb - Home Meds: 08:15 Ozempic 0.25 mg or 0.5 mg (2 mg/3 mL) subcutaneous Pen Injector 0.5 mg every week hb [Active]; - PMHx: 08:15 None; hb - PSHx: 08:15 Ankle - Left; hb - Immunization history:: Adult Immunizations up to date. - Infectious Disease History:: Denies. - Social history:: Smoking status: Reported history of juuling and/or vaping. - Family history:: not pertinent. ROS: 08:32 Constitutional: Negative for fever, chills, and weight loss, Cardiovascular: Negative rt for chest pain, palpitations, and edema, Respiratory: Negative for shortness of breath, cough, wheezing, and pleuritic chest pain, : Negative for injury, bleeding, discharge, and swelling, MS/Extremity: Negative for injury and deformity, Skin: Negative for injury, rash, and discoloration, 08:32 Abdomen/GI: Positive for nausea and vomiting, Exam: 08:32 Constitutional: This is a well developed, well nourished patient who is awake, alert, rt and in no acute distress. Head/Face: Normocephalic, atraumatic. Chest/axilla: Normal chest wall appearance and motion. Nontender with no deformity. No lesions are appreciated. Cardiovascular: Regular rate and rhythm with a normal S1 and S2. No gallops, murmurs, or rubs. Normal PMI, no JVD. No pulse deficits. Respiratory: Lungs have equal breath sounds bilaterally, clear to auscultation and percussion. No rales, rhonchi or wheezes noted. No increased work of breathing, no retractions or nasal flaring. Abdomen/GI: Soft, non-tender, with normal bowel sounds. No distension or tympany. No guarding or rebound. No evidence of tenderness throughout. Skin: Warm, dry with normal turgor. Normal color with no rashes, no lesions, and no evidence of cellulitis. MS/ Extremity: Pulses equal, no cyanosis. Neurovascular intact. Full, normal range of motion. Neuro: Awake and alert, GCS 15, oriented to person, place, time, and situation. Cranial nerves II-XII grossly intact. Motor strength 5/5 in all extremities. Sensory grossly intact. Cerebellar exam normal. Normal gait. Vital Signs: 08:14 BP 125 / 97; Pulse 89; Resp 16; Temp 98.5(O); Pulse Ox 100% on R/A; Weight 90.72 kg; hb Height 5 ft. 4 in. ; Pain 0/10; 09:13 BP 130 / 80; Pulse 71; Resp 16 S; Pulse Ox 100% on R/A; kc6 09:41 BP 112 / 61; Pulse 74; Resp 18 S; Pulse Ox 100% on R/A; kc6 10:16 BP 103 / 60; Pulse 75; Resp 15 S; Pulse Ox 98% on R/A; kc6 08:14 Body Mass Index 34.33 (90.72 kg, 162.56 cm) hb 08:14 Pain Scale: Adult hb MDM: 08:14 Medical Screening Exam initiated rt 09:41 Differential diagnosis: Gastroenteritis, semaglutide side effect, pancreatitis, drug rt disturbance, hyperemesis gravidarum. Data reviewed: vital signs, nurses notes, lab test result(s). I considered the following discharge prescriptions or medication management in the emergency department Medications were administered in the Emergency Department. See MAR. Test considered but Not performed: CT: No focal areas of abdominal tenderness, low suspicion for appendicitis, cholecystitis, CT scan not indicated. Counseling: I had a detailed discussion with the patient and/or guardian regarding the historical points, exam findings, and any diagnostic results supporting the discharge/admit diagnosis, lab results, the need for outpatient follow up, to return to the emergency department if symptoms worsen or persist or if there are any questions or concerns that arise at home. Response to treatment: the patient's symptoms have markedly improved after treatment. 07/03 08:21 Order name: CBC with Diff; Complete Time: 09:04 rt 07/03 08:21 Order name: CMP; Complete Time: 09:18 rt 07/03 08:21 Order name: Lipase; Complete Time: :18 rt 07/03 08:21 Order name: UAM; Complete Time: :18 rt 07/03 08: Order name: PREGU; Complete Time: 09:18 rt Administered Medications: 08:39 Drug: NS 0.9% IV 1000 ml IV at 1 bolus Per protocol; to be given as a bolus over 60 kc6 minutes Route: IV; Rate: 1 bolus; Site: right wrist; 10:16 Follow up: Response: No adverse reaction; IV Status: Completed infusion; IV Intake: kc6 1000ml 08:39 Drug: Ondansetron IVP 4 mg IVP once; over 2 minutes Route: IVP; Site: right wrist; kc6 09:05 Follow up: Response: No adverse reaction; Nausea unchanged kc6 09:12 Drug: metoCLOPramide IVP 10 mg IVP once; over 1 to 2 minutes Route: IVP; Site: right kc6 wrist; 09:29 Follow up: Response: No adverse reaction; Nausea is decreased; Vomiting decreased kc6 09:12 Drug: diphenhydrAMINE IVP 25 mg IVP once Route: IVP; Site: right wrist; kc6 09:29 Follow up: Response: No adverse reaction kc6 Disposition Summary: 07/03/24 10:00 Discharge Ordered Notes: Location: Home rt Problem: new rt Symptoms: have improved rt Condition: Stable rt Diagnosis - Hyperemesis gravidarum rt - Urinary tract infection rt Followup: rt - With: Private Physician - When: 2 - 3 days - Reason: Discharge Instructions: - Discharge Summary Sheet rt - Hyperemesis Gravidarum rt - and Urinary Tract Infection rt Forms: - Medication Reconciliation Form rt - Antibiotic Education rt - Prescription Opioid Use rt - Patient Portal Instructions rt - Leadership Thank You Letter rt Prescriptions: - Cephalexin 500 mg Oral Capsule - take 1 capsule ORAL route every 8 hours for 10 days; 30 capsule; Refills: 0, rt Product Selection Permitted - Reglan 10 mg Oral tablet - take 1 tablet ORAL route every 6 hours as needed for nausea; 30 tablet; rt Refills: 0, Product Selection Permitted Signatures: Dispatcher [employer] Lashon Macias RN RN Jennifer Soria RN RN kc6 Nehemiah Scott MD MD rt Corrections: (The following items were deleted from the chart) 08:21 08:21 CBC+H.LAB.BRZ ordered. EDMS EDMS 08: 08:21 COMPREHENSIVE METABOLIC PANEL+C.LAB.BRZ ordered. EDMS EDMS 08: 08:21 LIPASE+C.LAB.BRZ ordered. EDMS EDMS 08:21 08:21 Urinalysis W/Microscopic+U.LAB.BRZ ordered. EDMS EDMS 08:21 08:21 Test, Urine+UC.LAB.BRZ ordered. EDMS EDMS
[2024-07-03 11:24] VITALS: TEMP 98.5
[2024-07-03 11:28] VITALS: BP 103/60; O2SAT 98
== END 2024-07-03 10:17 | disposition home or self-care (01) ==
LOC: ER 08:04
DX: O21.0 Mild hyperemesis gravidarum (principal); O23.40 Unspecified infection of urinary tract in pregnancy, unspecified trimester; N39.0 Urinary tract infection, site not specified
CPT/HCPCS: 36415; 80053; 81001; 81025; 83690; 85025; 96361; 96374; 96375; 99284; J1200; J2405; J2765; J7030

== ENCOUNTER 2024-12-07 00:04 | Emergency (ER) | payer OTHER ==
--- OUTSIDE RECORDS SUMMARY | 2024-12-07 00:11 | XMS REPORT | Continuity of Care Document ---
Author Name Unknown Address [address] [place] [address] [facility] Address 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 Chief Name Role Phone NASREEN LESTER Primary Care Physician UnavailDENISSE Balderas Attending Clinician DENISSE Steven Attending Clinician Misael Chapman - Attending Clinician Unavailable Denisse Gordon MD Attending Clinician + [phone] PEGGY HARRISON Attending Clinician Unavailable PEGGY HARRISON Attending Clinician Unavailable 2, [facility] Us Room Attending Clinician Peggy Zhong MD Attending Clinician [phone] JEVON PEARSON Attending Clinician Unavailable JEVON PEARSON Attending Clinician Unavailable JEVON PEARSON Attending Clinician Unavailable Doctor Unassigned, [place] Attending Clinician U karl Butler, [facility] Attending Clinician UnavailJevon Bey MD Attending Clinician [phone] [email or web address] Attending Clinician UnavailNATHAN Berger Attending Clinician UnavailNATHAN Berger Attending Clinician UnavailJunior Garsia MD Attending Clinician [phone] JUNIOR VILLATORO Attending Clinician Unavail able JUNIOR VILLATORO Attending Clinician Unavail able Doctor Unassigned, [place] Attending Clinician U Stacia Costello MD Attending Clinician [phone] NERY MOLINA Attending Clinician Unavailable Nery Molina MD Attending Clinician [phone] PARVEZ VAZQUEZ Attending Clinician Unavailable SATCIA FERREIRA Attending Clinician Unavailable Nan Sinclair PA-C Attending Clinician [phone] NAN SINCLAIR Attending Clinician Unavailable MARGARITA FERNANDEZ Attending Clinician Unavailable MANUEL OJEDA Attending Clinician Unavailzuhair sequeira [email or web address] Admitting Clinician Unavaila NATHAN Cunningham Admitting Clinician Unavaila JUNIOR Peacock Admitting Clinician Unavail able NERY MOLINA Admitting Clinician Unavailable MANUEL OJEDA Admitting Clinician UnavailSTACIA Lovelace Admitting Clinician Unavailable Payers Payer Name Policy Type Policy Number Effective Date Expirati on Date Source [facility] [id number] 2024 00:00:00 [facility] [id number] 2022 00:00:00 [facility] [id number] 2019 00:00:00 Problems Condition Name Condition Details Condition Category Status Onset Date Resolution Date Last Treatment Date Treating Clinician Comments Source Excessive growth affecting , antepartum , single or unspecifie d fetus Excessive growth affecting , antepartum , single or unspecifie d fetus Disease Active 3-11 00:00: 00 [facility] High-risk in second trimester High-risk in second trimester Disease Active 2023-09 2-19 00:00: 00 [facility] Chronic midline low back pain with sciatica, sciatica laterality unspecifie d Chronic midline low back pain with sciatica, sciatica laterality unspecifie d Disease Active 7- 00:00: 00 [facility] Nexplanon in place Nexplanon in place Disease Active 04-08 00:00: 00 [facility] BMI 36.0-36.9, adult BMI 36.0-36.9, adult Disease Active 2018-09 0- 00:00: 00 [facility] Family planning, IUD (intrauter ine device) check/rein sertion/re moval Family planning, IUD (intrauter ine device) check/rein sertion/re moval Disease Resolve d 2022-0 8-03 00:00: 00 2024-07-27 00:00:00 2024-07-27 10:41:46 [facility] Mass overlappin g multiple quadrants of left breast Mass overlappin g multiple quadrants of left breast Disease Resolve d 2022-0 7-13 00:00: 00 2024-07-27 00:00:00 2024-07-27 10:41:55 [facility] Excessive or frequent menstruati on Excessive or frequent menstruati on Disease Resolve d 2021- 0-05 00:00: 00 2024-07-27 00:00:00 2024-07-27 10:41:49 [facility] Candidiasi s of breast Candidiasi s of breast Disease Resolve d 2021-0 9-20 00:00: 00 2024-07-27 00:00:00 2024-07-27 10:41:51 [facility] Antibiotic long-term use Antibiotic long-term use Disease Resolve d 2021-0 9-20 00:00: 00 2024-07-27 00:00:00 2024-07-27 10:41:42 [facility] Pain pelvic Pain pelvic Disease Resolve d 0 9-02 00:00: 00 2024-07-27 00:00:00 2024-07-27 10:41:51 [facility] Counseling for control regarding intrauteri ne device (IUD) Counseling for control regarding intrauteri ne device (IUD) Disease Resolve d 0 7-27 00:00: 00 2024-07-27 00:00:00 2024-07-27 10:41:41 [facility] Oral contracept ion initiation Oral contracept ion initiation Disease Resolve d 0 2-12 00:00: 00 2024-07-27 00:00:00 2024-07-27 10:41:44 [facility] Positive GBS test Positive GBS test Disease Resolve d 2019- 1-24 00:00: 00 2021-04-08 00:00:00 2021-04-08 14:52:21 [facility] Liveborn infant, of garcia , born in hospital by vaginal delivery Liveborn infant, of garcia , born in hospital by vaginal delivery Disease Resolve d 2019- 2-13 00:00: 00 2021-03-24 00:00:00 2021-03-24 14:36:10 [facility] 39 weeks gestation of 39 weeks gestation of Disease Resolve d 12 00:00: 00 2021-03-24 00:00:00 2021-03-24 14:36:07 [facility] Encounter for supervisio n of normal first in third trimester Encounter for supervisio n of normal first in third trimester Disease Resolve d -24 00:00: 00 2021-03-24 00:00:00 2021-03-24 14:36:17 [facility] Excessive weight gain during in third trimester Excessive weight gain during in third trimester Disease Resolve d 24 00:00: 00 2021-03-24 00:00:00 2021-03-24 14:36:15 [facility] 38 weeks gestation of 38 weeks gestation of Disease Resolve d 2018- 2-18 00:00: 00 2019-10-25 00:00:00 2019-10-25 17:50:36 [facility] Need for Tdap vaccinatio n Need for Tdap vaccinatio n Disease Resolve d 2018- 2-18 00:00: 00 2019-10-25 00:00:00 2019-10-25 17:50:48 [facility] Dry skin Dry skin Disease Resolve d 2018-1 2-18 00:00: 00 2019-10-25 00:00:00 2019-10-25 17:50:39 [facility] Third trimester Third trimester Disease Resolve d 2018-1 2-18 00:00: 00 2019-10-06 00:00:00 2019-10-06 13:43:21 [facility] Vagina itching Vagina itching Disease Resolve d 2018-1 2-18 00:00: 00 2019-10-06 00:00:00 2019-10-06 13:43:29 [facility] Vaginal discharge Vaginal discharge Disease Resolve d 2018- 2-18 00:00: 00 2019-10-06 00:00:00 2019-10-06 13:43:33 [facility] Abdominal pain affecting Abdominal pain affecting Disease Resolve d 2018- 0-05 00:00: 00 2019-08-30 00:00:00 2019-08-30 09:23:20 [facility] Nausea and vomiting during prior to 22 weeks gestation Nausea and vomiting during prior to 22 weeks gestation Disease Resolve d 2018- 0-05 00:00: 00 2019-08-30 00:00:00 2019-08-30 09:23:23 [facility] 20 weeks gestation of 20 weeks gestation of Disease Resolve d 2018- 0-05 00:00: 00 2019-08-30 00:00:00 2019-08-30 09:23:26 [facility] Allergies, Adverse Reactions, Alerts Allergy Name Allergy Type Status Severity Reaction(s) Onset Date Inactive Date Treating Clinician Comments Source NO KNOWN ALLERGIE S Drug Class Active [facility] Social History Social Habit Start Date Stop Date Quantity Comments Source ASSERTION 2024-06-06 00:00:00 [facility] History of tobacco use User of smokeless tobacco [facility] Gender identity [facility] Alcoholic beverage intake 2024-11-21 00:00:00 2024-11-21 00:00:00 Ex-drinker (finding) [facility] History of Social function 2024-09-28 00:00:00 2024-09-28 00:00:00 [facility] Alcohol intake 2023-05-13 00:00:00 2023-05-13 00:00:00 Ex-drinker (finding) [facility] Exposure to SARS-CoV-2 (event) 2022-06-12 00:00:00 2022-06-22 14:23:[address] [facility] Tobacco use and exposure 2022-06-02 00:00:00 2022-06-02 00:00:00 [address]okeless tobacco user [facility] Sex assigned at 1995 00:00:00 1997 00:00:00 [facility] Smoking Status Start Date Stop Date Source Never smoked tobacco [facility] Medications Ordered Medication Name Filled Medication Name Start Date Stop Date Current Medication? Ordering Clinician Indication Dosage Frequency Signature (SIG) Comments Components Source PNV 11-Iron Fum-Folic Acid-OM3 28 mg iron-1 mg -200 mg Cap 16 11:10: 29 Yes Take by mouth. [facility] ondansetron (ZOFRAN) 4 mg tablet 2023-09 00:00: 00 Yes [id number] 4mg Take 1 tablet by mouth every 8 (eight) hours as needed for Nausea and Vomiting (N/V). [facility] norgestimat e-ethinyl estradioL (TRI-LO-SPR INTEC) 0.18/0.215/ 0.25 mg-25 mcg tablet 04-15 00:00: 00 07-27 00:00 :00 No [id number] 1{tbl} Take 1 tablet by mouth in the morning. [facility] nystatin 100,000 unit/gram cream 03-25 00:00: 00 Yes [id number] Apply to area(s) 2 (two) times daily. [facility] triamcinolo ne 0.025 % cream 03-25 00:00: 00 Yes [id number] Apply to area(s) 2 (two) times daily. [facility] levonorgest reL (KYLEENA) IUD 1 Device 2021-09 0 21:15: 00 06-22 20:23 :00 No [id number] 1{devic e} [facility] miSOPROStoL 200 mcg tablet 2021-09 0-04 00:00: 00 06-22 00:00 :00 No [id number] Take one tablet the night before IUD insertion procedure and take one tablet the morning of the IUD insertion procedure. This is not for abortive treatment; patient will have IUD insertion. [facility] fluconazole 200 mg tablet 06-02 00:00: 00 07-27 00:00 :00 No [id number] 200mg Take 1 tablet by mouth in the morning. [facility] triamcinolo ne 0.025 % cream 06-02 00:00: 00 03-25 00:00 :00 No [id number] Apply to area(s) 2 (two) times daily. [facility] nystatin 100,000 unit/gram cream 06-02 00:00: 00 03-25 00:00 :00 No [id number] Apply to area(s) 2 (two) times daily. [facility] ondansetron (ZOFRAN (PF)) injection 4 mg 11-28 21:30: 00 11-28 20:43 :00 No 4mg 4 mg, Slow IV Push, ONCE, 1 dose, On Wed11/28/21 at 1630, ILANA [facility] morpHINE injection 4 mg 11-28 21:30: 00 11-28 20:47 :00 No 4mg 4 mg, Slow IV Push, ONCE, 1 dose, On Wed11/28/21 at 1630, STAT [facility] ketorolac (TORADOL) injection 30 mg 11-28 21:30: 00 11-28 20:45 :00 No 30mg 30 mg, Slow IV Push, ONCE, 1 dose, On Wed11/28/21 at 1630, ILANA
Fa culty member approving Restricted medication : NERY MOLINA [facility] ibuprofen 800 mg tablet 11-28 00:00: 00 07-27 00:00 :00 No [id number] 800mg Take 1 tablet by mouth every 8 (eight) hours. [facility] HYDROcodone -acetaminop hen 5-325 mg tablet 11-28 00:00: 00 12-06 04:59 :00 No [id number] 1{tbl} Take 1 tablet by mouth every 4 (four) hours as needed for Pain (scale 4-6) for up to 7 days. Indication s: acute pain [facility] No known medications 05-15 17:49: 05 No [facility] No known medications No Un maria m [facility] Immunizations Ordered Immunization Name Filled Immunization Name Date Status Comments Source TDAP 2024-11-21 00:00:[address] [facility] TDAP (ADACEL) VACCINE 2019-08-29 00:00:[address] [facility] TDAP (ADACEL) VACCINE 2019-08-29 00:00:[address] [facility] TDAP (ADACEL) VACCINE 2019-08-29 00:00:[address] [facility] TDAP (ADACEL) VACCINE 2019-08-29 00:00:[address] [facility] TDAP (ADACEL) VACCINE 2019-08-29 00:00:[address] [facility] TDAP (ADACEL) VACCINE 2019-08-29 00:00:[address] [facility] TDAP (ADACEL) VACCINE 2019-08-29 00:00:[address] [facility] TDAP (ADACEL) VACCINE 2019-08-29 00:00:[address] [facility] TDAP (ADACEL) VACCINE 2019-08-29 00:00:[address] [facility] TDAP (ADACEL) VACCINE 2019-08-29 00:00:[address] [facility] TDAP (ADACEL) VACCINE 2019-08-29 00:00:[address] [facility] TDAP (ADACEL) VACCINE 2019-08-29 00:00:[address] [facility] TDAP (ADACEL) VACCINE 2019-08-29 00:00:[address] [facility] TDAP (ADACEL) VACCINE 2019-08-29 00:00:[address] [facility] TDAP (ADACEL) VACCINE 2019-08-29 00:00:[address] [facility] TDAP (ADACEL) VACCINE 2019-08-29 00:00:[address] [facility] TDAP (ADACEL) VACCINE 2019-08-29 00:00:[address] [facility] TDAP (ADACEL) VACCINE 2019-08-29 00:00:00 Completed [facility] TDAP (ADACEL) VACCINE 2019-08-29 00:00:[address] [facility] HPV 2010-04-25 00:00:[address] [facility] Meningococcal Polysaccharide (groups A, C, Y and W-135) conjugate vaccine (MCV4P) 2010-04-25 00:00:[address] [facility] TDAP 2010-04-25 00:00:[address] [facility] Varicella (varivax)(chicken pox) 2010-04-25 00:00:[address] [facility] HPV 2010-04-25 00:00:[address] [facility] Meningococcal Polysaccharide (groups A, C, Y and W-135) conjugate vaccine (MCV4P) 2010-04-25 00:00:[address] [facility] TDAP 2010-04-25 00:00:[address] [facility] Varicella (varivax)(chicken pox) 2010-04-25 00:00:[address] [facility] HPV 2010-04-25 00:00:[address] [facility] Meningococcal Polysaccharide (groups A, C, Y and W-135) conjugate vaccine (MCV4P) 2010-04-25 00:00:[address] [facility] TDAP 2010-04-25 00:00:[address] [facility] Varicella (varivax)(chicken pox) 2010-04-25 00:00:[address] [facility] HPV 2010-04-25 00:00:[address] [facility] Meningococcal Polysaccharide (groups A, C, Y and W-135) conjugate vaccine (MCV4P) 2010-04-25 00:00:[address] [facility] TDAP 2010-04-25 00:00:[address] [facility] Varicella (varivax)(chicken pox) 2010-04-25 00:00:[address] [facility] HPV 2010-04-25 00:00:[address] [facility] Meningococcal Polysaccharide (groups A, C, Y and W-135) conjugate vaccine (MCV4P) 2010-04-25 00:00:[address] [facility] TDAP 2010-04-25 00:00:[address] [facility] Varicella (varivax)(chicken pox) 2010-04-25 00:00:[address] [facility] HPV 2010-04-25 00:00:[address] [facility] Meningococcal Polysaccharide (groups A, C, Y and W-135) conjugate vaccine (MCV4P) 2010-04-25 00:00:[address] [facility] TDAP 2010-04-25 00:00:[address] [facility] Varicella (varivax)(chicken pox) 2010-04-25 00:00:[address] [facility] HPV 2010-04-25 00:00:[address] [facility] Meningococcal Polysaccharide (groups A, C, Y and W-135) conjugate vaccine (MCV4P) 2010-04-25 00:00:[address] [facility] TDAP 2010-04-25 00:00:[address] [facility] Varicella (varivax)(chicken pox) 2010-04-25 00:00:[address] [facility] HPV 2010-04-25 00:00:[address] [facility] Meningococcal Polysaccharide (groups A, C, Y and W-135) conjugate vaccine (MCV4P) 2010-04-25 00:00:[address] [facility] TDAP 2010-04-25 00:00:[address] [facility] Varicella (varivax)(chicken pox) 2010-04-25 00:00:[address] [facility] HPV 2010-04-25 00:00:[address] [facility] Meningococcal Polysaccharide (groups A, C, Y and W-135) conjugate vaccine (MCV4P) 2010-04-25 00:00:[address] [facility] TDAP 2010-04-25 00:00:[address] [facility] Varicella (varivax)(chicken pox) 2010-04-25 00:00:[address] [facility] HPV 2010-04-25 00:00:00 Completed Meningococcal Polysaccharide (groups A, C, Y and W-135) conjugate vaccine (MCV4P) 2010-04-25 00:00:00 Completed TDAP 2010-04-25 00:00:00 Completed Varicella (varivax)(chicken pox) 2010-04-25 00:00:00 Completed DTaP, Unspecified Formulation 2002-04-27 00:00:[address] [facility] HIB 4 Dose Schedule 2002-04-27 00:00:[address] [facility] MMR 2002-04-27 00:00:[address] [facility] IPV 2002-04-27 00:00:[address] [facility] DTaP, Unspecified Formulation 2002-04-27 00:00:[address] [facility] HIB 4 Dose Schedule 2002-04-27 00:00:[address] [facility] MMR 2002-04-27 00:00:[address] [facility] IPV 2002-04-27 00:00:[address] [facility] DTaP, Unspecified Formulation 2002-04-27 00:00:[address] [facility] HIB 4 Dose Schedule 2002-04-27 00:00:[address] [facility] MMR 2002-04-27 00:00:[address] [facility] IPV 2002-04-27 00:00:[address] [facility] DTaP, Unspecified Formulation 2002-04-27 00:00:[address] [facility] HIB 4 Dose Schedule 2002-04-27 00:00:[address] [facility] MMR 2002-04-27 00:00:[address] [facility] IPV 2002-04-27 00:00:[address] [facility] DTaP, Unspecified Formulation 2002-04-27 00:00:[address] [facility] HIB 4 Dose Schedule 2002-04-27 00:00:[address] [facility] MMR 2002-04-27 00:00:[address] [facility] IPV 2002-04-27 00:00:[address] [facility] DTaP, Unspecified Formulation 2002-04-27 00:00:[address] [facility] HIB 4 Dose Schedule 2002-04-27 00:00:[address] [facility] MMR 2002-04-27 00:00:[address] [facility] IPV 2002-04-27 00:00:[address] [facility] DTaP, Unspecified Formulation 2002-04-27 00:00:[address] [facility] HIB 4 Dose Schedule 2002-04-27 00:00:[address] [facility] MMR 2002-04-27 00:00:[address] [facility] IPV 2002-04-27 00:00:[address] [facility] DTaP, Unspecified Formulation 2002-04-27 00:00:[address] [facility] HIB 4 Dose Schedule 2002-04-27 00:00:[address] [facility] MMR 2002-04-27 00:00:[address] [facility] IPV 2002-04-27 00:00:[address] [facility] DTaP, Unspecified Formulation 2002-04-27 00:00:[address] [facility] HIB 4 Dose Schedule 2002-04-27 00:00:[address] [facility] MMR 2002-04-27 00:00:[address] [facility] IPV 2002-04-27 00:00:[address] [facility] DTaP, Unspecified Formulation 2002-04-27 00:00:00 Completed HIB 4 Dose Schedule 2002-04-27 00:00:00 Completed MMR 2002-04-27 00:00:00 Completed IPV 2002-04-27 00:00:00 Completed DTaP, Unspecified Formulation 2000-06-07 00:00:[address] [facility] DTaP, Unspecified Formulation 2000-06-07 00:00:[address] [facility] DTaP, Unspecified Formulation 2000-06-07 00:00:[address] [facility] DTaP, Unspecified Formulation 2000-06-07 00:00:[address] [facility] DTaP, Unspecified Formulation 2000-06-07 00:00:[address] [facility] DTaP, Unspecified Formulation 2000-06-07 00:00:[address] [facility] DTaP, Unspecified Formulation 2000-06-07 00:00:[address] [facility] DTaP, Unspecified Formulation 2000-06-07 00:00:[address] [facility] DTaP, Unspecified Formulation 2000-06-07 00:00:[address] [facility] DTaP, Unspecified Formulation 2000-06-07 00:00:[address] [facility] Hep B, Adol or Pedi Dosage 1995 00:00:[address] [facility] Hep B, Adol or Pedi Dosage 1995 00:00:[address] [facility] Hep B, Adol or Pedi Dosage 1995 00:00:[address] [facility] Hep B, Adol or Pedi Dosage 1995 00:00:[address] [facility] Hep B, Adol or Pedi Dosage 1995 00:00:[address] [facility] Hep B, Adol or Pedi Dosage 1995 00:00:[address] [facility] Hep B, Adol or Pedi Dosage 1995 00:00:[address] [facility] Hep B, Adol or Pedi Dosage 1995 00:00:[address] [facility] Hep B, Adol or Pedi Dosage 1995 00:00:[address] [facility] Hep B, Adol or Pedi Dosage 1995 00:00:00 Completed Vital Signs Vital Name Observation Time Observation Value Comments S ource Systolic blood pressure 2024-10-24 13:55:00 117 mm[Hg] [facility] Diastolic blood pressure 2024-10-24 13:55:00 74 mm[Hg] [facility] Heart rate 2024-10-24 13:55:00 80 /min [facility] Body temperature 2024-10-24 13:55:[address] [facility] Respiratory rate 2024-10-24 13:55:00 16 /min [facility] Body height 2024-10-24 13:55:00 162.6 cm [facility] Body weight 2024-10-24 13:55:00 102.422 kg [facility] BMI 2024-10-24 13:55:00 38.76 kg/m2 [facility] Systolic blood pressure 2024-09-28 17:10:00 108 mm[Hg] [facility] Diastolic blood pressure 2024-09-28 17:10:00 73 mm[Hg] [facility] Heart rate 2024-09-28 17:10:00 118 /min [facility] Body temperature 2024-09-28 17:10:[address] [facility] Respiratory rate 2024-09-28 17:10:00 18 /min [facility] Body height 2024-09-28 17:10:00 162.6 cm [facility] Body weight 2024-09-28 17:10:00 101.243 kg [facility] BMI 2024-09-28 17:10:00 38.31 kg/m2 [facility] Systolic blood pressure 2024-08-31 16:54:00 132 mm[Hg] [facility] Diastolic blood pressure 2024-08-31 16:54:00 81 mm[Hg] [facility] Heart rate 2024-08-31 16:54:00 84 /min [facility] Body temperature 2024-08-31 16:54:[address] [facility] Respiratory rate 2024-08-31 16:54:00 18 /min [facility] Body height 2024-08-31 16:54:00 162.6 cm [facility] Body weight 2024-08-31 16:54:00 99.791 kg [facility] BMI 2024-08-31 16:54:00 37.76 kg/m2 [facility] Systolic blood pressure 2024-07-27 16:01:00 108 mm[Hg] [facility] Diastolic blood pressure 2024-07-27 16:01:00 75 mm[Hg] [facility] Heart rate 2024-07-27 16:01:00 101 /min [facility] Respiratory rate 2024-07-27 16:01:00 18 /min [facility] Body height 2024-07-27 16:01:00 162.6 cm [facility] Body weight 2024-07-27 16:01:00 95.391 kg [facility] BMI 2024-07-27 16:01:00 36.10 kg/m2 [facility] Systolic blood pressure 2023-05-13 16:29:00 109 mm[Hg] [facility] Diastolic blood pressure 2023-05-13 16:29:00 74 mm[Hg] [facility] Heart rate 2023-05-13 16:29:00 66 /min [facility] Respiratory rate 2023-05-13 16:29:00 18 /min [facility] Body height 2023-05-13 16:29:00 [facility] 2023-05-13 16:29:00 99.791 kg [facility] BMI 2023-05-13 16:29:00 36.61 kg/m2 [facility] Systolic blood pressure 2023-05-03 18:05:00 109 mm[Hg] [facility] Diastolic blood pressure 2023-05-03 18:05:00 76 mm[Hg] [facility] Heart rate 2023-05-03 18:05:00 79 /min [facility] Respiratory rate 2023-05-03 18:05:00 18 /min [facility] Body height 2023-05-03 18:05:00 165.1 cm [facility] Body weight 2023-05-03 18:05:00 100.608 kg [facility] BMI 2023-05-03 18:05:00 36.91 kg/m2 [facility] Systolic blood pressure 2023-04-15 18:03:00 126 mm[Hg] [facility] Diastolic blood pressure 2023-04-15 18:03:00 77 mm[Hg] [facility] Heart rate 2023-04-15 18:03:00 69 /min [facility] Body temperature 2023-04-15 18:03:[address] [facility] Respiratory rate 2023-04-15 18:03:00 16 /min [facility] Body height 2023-04-15 18:03:00 165.1 cm [facility] 2023-04-15 18:03:00 99.655 kg [facility] BMI 2023-04-15 18:03:00 36.56 kg/m2 [facility] Oxygen saturation in Arterial blood by Pulse oximetry 2023-04-15 18:03:00 98 /min [facility] Systolic blood pressure 2023-03-26 14:21:00 127 mm[Hg] [facility] Diastolic blood pressure 2023-03-26 14:21:00 88 mm[Hg] [facility] Heart rate 2023-03-26 14:21:00 82 /min [facility] Respiratory rate 2023-03-26 14:21:00 18 /min [facility] Body height 2023-03-26 14:21:00 165.1 cm [facility] Body weight 2023-03-26 14:21:00 100.699 kg [facility] BMI 2023-03-26 14:21:00 36.94 kg/m2 [facility] Oxygen saturation in Arterial blood by Pulse oximetry 2023-03-26 14:21:00 99 /min [facility] Systolic blood pressure 2023-03-25 19:08:00 110 mm[Hg] [facility] Diastolic blood pressure 2023-03-25 19:08:00 73 mm[Hg] [facility] Heart rate 2023-03-25 19:08:00 72 /min [facility] Body temperature 2023-03-25 19:08:[address] [facility] Respiratory rate 2023-03-25 19:08:00 18 /min [facility] Body height 2023-03-25 19:08:00 162.6 cm [facility] Body weight 2023-03-25 19:08:00 100.245 kg [facility] BMI 2023-03-25 19:08:00 37.93 kg/m2 [facility] Systolic blood pressure 2022-06-22 19:24:00 120 mm[Hg] [facility] Diastolic blood pressure 2022-06-22 19:24:00 78 mm[Hg] [facility] Heart rate 2022-06-22 19:24:00 82 /min [facility] Body temperature 2022-06-22 19:24:[address] [facility] Respiratory rate 2022-06-22 19:24:00 16 /min [facility] Body height 2022-06-22 19:24:00 162.6 cm [facility] Body weight 2022-06-22 19:24:00 102.059 kg [facility] BMI 2022-06-22 19:24:00 38.62 kg/m2 [facility] Oxygen saturation in Arterial blood by Pulse oximetry 2022-06-22 19:24:00 97 /min [facility] Systolic blood pressure 2022-06-16 18:26:00 112 mm[Hg] [facility] Diastolic blood pressure 2022-06-16 18:26:00 79 mm[Hg] [facility] Heart rate 2022-06-16 18:26:00 77 /min [facility] Body temperature 2022-06-16 18:26:[address] [facility] Respiratory rate 2022-06-16 18:26:00 18 /min [facility] Body height 2022-06-16 18:26:00 162.6 cm [facility] Body weight 2022-06-16 18:26:00 103.874 kg [facility] BMI 2022-06-16 18:26:00 39.31 kg/m2 [facility] Systolic blood pressure 2022-06-02 15:12:00 116 mm[Hg] [facility] Diastolic blood pressure 2022-06-02 15:12:00 82 mm[Hg] [facility] Heart rate 2022-06-02 15:12:00 82 /min [facility] Body temperature 2022-06-02 15:12:[address] [facility] Respiratory rate 2022-06-02 15:12:00 18 /min [facility] Body height 2022-06-02 15:12:00 162.6 cm [facility] Body weight 2022-06-02 15:12:00 104.781 kg [facility] BMI 2022-06-02 15:12:00 39.65 kg/m2 [facility] Systolic blood pressure 2021-11-28 22:15:00 115 mm[Hg] [facility] Diastolic blood pressure 2021-11-28 22:15:00 75 mm[Hg] [facility] Heart rate 2021-11-28 22:15:00 73 /min [facility] Respiratory rate 2021-11-28 22:15:00 18 /min [facility] Oxygen saturation in Arterial blood by Pulse oximetry 2021-11-28 22:15:00 99 /min [facility] Body temperature 2021-11-28 19:34:[address] [facility] Body weight 2021-11-28 19:34:00 84.823 kg [facility] BMI 2021-11-28 19:34:00 31.60 kg/m2 [facility] Systolic blood pressure 2021-05-15 21:49:00 119 mm[Hg] [facility] Diastolic blood pressure 2021-05-15 21:49:00 79 mm[Hg] [facility] Heart rate 2021-05-15 21:49:00 80 /min [facility] Body temperature 2021-05-15 21:49:[address] [facility] Respiratory rate 2021-05-15 21:49:00 18 /min [facility] Body height 2021-05-15 21:49:00 163.8 cm [facility] Body weight 2021-05-15 21:49:00 84.823 kg [facility] BMI 2021-05-15 21:49:00 31.60 kg/m2 [facility] Procedures Procedure Date / Time Performed Performing Clinician Source SECOND AND THIRD TRIMESTER ULTRASOUND 2024-12-04 16:22:00 [facility] POCT URINALYSIS W/O SPECIFIC GRAVITY 2024-10-24 14:05:00 Evan [facility] SECOND AND THIRD TRIMESTER ULTRASOUND 2024-10-19 19:46:00 [facility] POCT URINALYSIS W/O SPECIFIC GRAVITY 2024-09-28 00:00:00 Evan [facility] POCT URINALYSIS W/O SPECIFIC GRAVITY 2024-08-31 00:00:00 Denisse Gordon [facility] SCANNED LAB RESULTS 2024-08-16 19:09:31 Doctor Jennifer hill, [place] [facility] OB TRANSVAGINAL 2024-07-27 16:42:[address] [facility] POCT TEST 2024-07-27 00:00:[address] [facility] POCT URINALYSIS W/O SPECIFIC GRAVITY 2024-07-27 00:00:00 Evan Denisse [facility] XR SPINE THORACIC 2 VW 2023-05-03 19:09:[address] [facility] BI ULTRASOUND BREAST COMPLETE LEFT 2023-04-30 19:18:[address] [facility] MR LUMBAR SPINE WO CONTRAST 2023-04-13 18:01:00 Junior Villatoro [facility] PATIENT FINANCIAL POLICY 2023-03-25 18:52:26 Doctor Unassigned, [place] [facility] POCT TEST 2022-06-22 00:00:[address] [facility] ASSIGNMENT OF BENEFITS 2022-06-16 18:15:45 Docto r Unassigned, [place] [facility] US OVARY TORSION 2021-11-28 21:48:37 Nery Molina [facility] URINALYSIS 2021-11-28 20:45:00 [facility] COMP. METABOLIC PANEL ([id number]) 2021-11-28 20:42:[address] [facility] CBC WITH DIFF 2021-11-28 20:42:00 Nery Molina [facility] POCT TEST 2021-11-28 20:21:[address] [facility] NOTICE OF PRIVACY PRACTICES 2021-11-28 19:25:22 Doctor Unassigned, [place] [facility] CONSENT/REFUSAL FOR DIAGNOSIS AND TREATMENT 2021-11-28 19:25:13 Doctor Unassigned, [place] [facility] Encounters Start Date/Time End Date/Time Encounter Type Admission Type Attending Clinicians Care Facility Care Department Encounter ID Source 2024-12-07 08:15:00 2024-12-07 08:15:00 Outpatient R BASILIO-NAGI S, DENISSE BASILIO-NAGI S, DENISSE [facility] [id number] [facility] 2024-12-05 08:15:00 2024-12-05 08:30:00 Racking Machine Operator Visit Lab, Ang - Db Basilio-Nagi s, Denisse Lab, Ang - Db [facility] 1.2.840.114 350.1.13.10 4.2.7.2.686 [id number] [facility] 2024-12-05 08:15:00 2024-12-05 08:15:00 Outpatient R BASILIO-NAGI S, DENISSE BASILIO-NAGI S, DENISSE [facility] [id number] [facility] 2024-12-04 11:15:00 2024-12-04 17:03:51 Outpatient PEGGY SCHAEFER SHANNON [facility] [id number] [facility] 2024-12-04 11:15:00 2024-12-04 17:03:51 Racking Machine Operator Visit 2, [facility] Room Peggy Harrison [facility] DERMATOLOGIST MANAGING PARTNER [facility] MATERNAL & CHILD HEALTH [facility] 1..840.114 350.1.13.10 4.2.7.2.686 [id number] [facility] 2024-11-23 11:15:00 2024-11-23 11:15:00 Outpatient P JEVON PEARSON, JEVON JAIN, JEVON [facility] [id number] [facility] 2024-11-21 09:15:00 2024-11-21 09:15:00 Outpatient R BASILIO-NAGI S, DENISSE BASILIO-NAGI S, DENISSE [facility] [id number] [facility] 2024-08-16 00:00:00 2024-10-28 06:32:08 Orders Only Doctor Unassigned, [place] Doctor Unassigned, [place] [facility] [facility] 1.0.114 350.1.13.10 4.2.7.2.686 [id number] [facility] 2024-10-24 08:00:00 2024-10-24 08:05:28 Outpatient R KENJI S, DENISSE KENJI S, DENISSE [facility] [id number] [facility] 2024-10-24 08:00:00 2024-10-24 08:05:28 [facility] 1..114 350.1.13.10 4.2.7.2.686 [id number] 134 [id number] [facility] 2024-10-19 13:00:00 2024-10-19 14:12:45 Outpatient P JEVON PEARSON, JOYCELYN OHEETA [facility] [id number] [facility] 2024-10-19 13:00:00 2024-10-19 14:12:45 Racking Machine Operator Visit Ultrasound, Misael-Jevon Tao [facility] DERMATOLOGIST MANAGING PARTNER [facility] MATERNAL & CHILD HEALTH [facility] 1..114 350.1.13.10 4.2.7.2.686 [id number] [facility] 2024-09-11 00:00:00 2024-10-14 18:17:09 Patient Secure Msg Doctor Unassigned, [place] Doctor Unassigned, [place] [facility] 1..114 350.1.13.10 4.2.7.2.686 [id number] [facility] 2024-09-13 00:00:00 2024-10-14 18:15:13 Patient Secure Msg Denisse Patrick [facility] 1.2.840.114 350.1.13.10 4.2.7.2.686 [id number] [facility] 2024-09-28 11:15:00 2024-09-28 11:32:06 Outpatient R KENJI S, DENISSE BASILIO-NAGI S DENISSE [facility] [id number] [facility] 2024-09-28 11:15:00 2024-09-28 11:32:06 Routine Visit Mildred Patricksol [facility] 1.2840.114 350.1.13.10 4.2.7.2.686 [id number] [facility] 2024-09-11 00:00:00 2024-09-11 12:28:51 Telephone Mildred Patricksol [facility] 1.20.114 350.1.13.10 4.2.7.2.686 [id number] [facility] 2024-09-08 15:00:00 2024-09-08 15:23:01 Outpatient R BASILIO-NAGI S, DENISSE BASILIO-NAGI S DENISSE [facility] [id number] [facility] 2024-09-08 15:00:00 2024-09-08 15:15:00 Racking Machine Operator Visit Lab, Ang - Db Mildred Patricksol Lab, Ang - Db [facility] 1.20.114 350.1.13.10 4.2.7.2.686 [id number] [facility] 2024-09-07 11:00:00 2024-09-07 11:00:00 Outpatient R [facility] [id number] [facility] 2024-08-01 00:00:00 2024-09-02 18:16:33 Patient Secure Msg Doctor Unassigned, [place] Doctor Unassigned, [place] [facility] 1.2.840.114 350.1.13.10 4.2.7.2.686 [id number] [facility] 2024-08-01 00:00:00 2024-09-02 18:16:21 Patient Secure Msg Doctor Unassigned, [place] Doctor Unassigned, [place] [facility] 1.2.114 350.1.13.10 4.2.7.2.686 [id number] [facility] 2024-08-31 11:00:00 2024-08-31 11:13:00 Outpatient R DENISSE PATRICK [facility] [id number] [facility] 2024-08-31 11:00:00 2024-08-31 11:13:00 Routine Visit Mildred Patricksol [facility] 1.2.114 350.1.13.10 4.2.7.2.686 [id number] [facility] 2024-08-24 08:15:00 2024-08-24 08:15:00 Outpatient R KENJI S, DENISSE KENJI S [facility] [id number] [facility] 2024-08-09 00:00:00 2024-08-09 10:55:26 Telephone Kenji amaro [facility], [facility] PR[facility] SPECIALTY CARE 1.20.114 350.1.13.10 4.2.7.2.686 [id number] [facility] 2024-08-09 00:00:00 2024-08-09 10:27:29 Patient Secure Msg Doctor Unassigned, [place] Doctor Unassigned, [place] [facility] 1.2840.114 350.1.13.10 4.2.7.2.686 [id number] [facility] 2024-08-08 00:00:00 2024-08-08 17:01:40 Telephone [facility]Ansley [facility] [place] [facility] 1.2840.114 350.1.13.10 4.2.7.2.686 [id number] [facility] 2024-08-08 00:00:00 2024-08-08 16:58:23 Telephone Kenji amaro [facility] 1.20.114 350.1.13.10 4.2.7.2.686 [id number] [facility] 2024-08-01 00:00:00 2024-08-01 16:33:50 Telephone BobybNagi amaroMildredDenisse [facility] 1.20.114 350.1.13.10 4.2.7.2.686 [id number] [facility] 2024-07-28 08:45:00 2024-07-28 09:13:37 Outpatient R KENJI Amaro, DENISSE KENJI Amaro, DENISSE [facility] [id number] [facility] 2024-07-28 08:45:00 2024-07-28 09:13:37 Racking Machine Operator Visit Lab, Denisse Wheeler Lab, Misael - Te [facility] 1..114 350.1.13.10 4.2.7.2.686 [id number] [facility] 2024-07-27 10:00:00 2024-07-27 10:25:51 Outpatient R DENISSE PATRICK [facility] [id number] [facility] 2024-07-27 10:00:00 2024-07-27 10:25:51 Initial Visit Kenji amaro [facility], [facility] 1.2840.114 350.1.13.10 4.2.7.2.686 [id number] [facility] 2024-07-24 00:00:00 2024-07-24 10:35:32 Telephone Kenji amaro Denisse [facility] 1.2.114 350.1.13.10 4.2.7.2.686 [id number] [facility] 2023-07-13 00:00:00 2023-07-13 00:00:00 Outpatient [email or web address] [facility] [id number] [facility] 2023-05-13 11:30:00 2023-05-13 11:48:14 Outpatient R NATHAN COOPER [facility] [id number] [facility] 2023-05-13 11:30:00 2023-05-13 11:48:14 Office Visit Nathan Cooper [facility] 1..114 350.1.13.10 4.2.7.2.686 [id number] [facility] 2023-05-03 13:48:37 2023-05-03 23:59:00 Hospital Encounter Junior [facility]ator[facility] 1.84.114 350.1.13.10 4.2.7.2.686 [id number] [facility] 2023-05-03 13:00:00 2023-05-03 13:48:21 Outpatient R TAYLER JUNIOR TELLO [facility] [id number] [facility] 2023-05-03 13:00:00 2023-05-03 13:48:21 Office Visit Tayler Junior Fortune [facility] 1..840.114 350.1.13.10 4.2.7.2.686 [id number] [facility] 2023-04-30 13:31:46 2023-04-30 23:59:00 Outpatient R CRISTINA COOPEROK NATHAN COOPER [facility] [id number] [facility] 2023-04-30 13:31:46 2023-04-30 23:59:00 Hospital Encounter Nathan Cooper [facility] 1..840.114 350.1.13.10 4.2.7.2.686 [id number] [facility] 2023-04-15 13:00:00 2023-04-15 13:18:17 Outpatient R NATHAN COOPER [facility] [id number] [facility] 2023-04-15 13:00:00 2023-04-15 13:18:17 Office Visit Nathan Cooper [facility] 1.840.114 350.1.13.10 4.2.7.2.686 [id number] [facility] 2023-04-13 12:22:29 2023-04-13 23:59:00 Outpatient R JUNIOR VILLATORO [facility] [id number] [facility] 2023-04-13 12:22:29 2023-04-13 23:59:00 Hospital Encounter Junior Villatoro [facility] 1..840.114 350.1.13.10 4.2.7.2.686 [id number] [facility] 2023-04-07 00:00:00 2023-04-07 00:00:00 Outpatient R NATHAN COOPER [facility] [id number] [facility] 2023-03-26 09:20:00 2023-03-26 10:24:57 Outpatient R JUNIOR VILLATORO [facility] [id number] [facility] 2023-03-26 09:20:00 2023-03-26 10:24:57 Office Visit Junior Villatoro [facility] 1..840.114 350.1.13.10 4.2.7.2.686 [id number] [facility] 2023-03-25 14:00:00 2023-03-25 14:21:35 Outpatient R NATHAN COOPER [facility] [id number] [facility] 2023-03-25 14:00:00 2023-03-25 14:21:35 Office Visit Nathan Cooper [facility] 1..840.114 350.1.13.10 4.2.7.2.686 [id number] [facility] 2023-03-25 00:00:00 2023-03-25 00:00:00 Orders Only Doctor Unassigned, [place] [facility] 1..840.114 350.1.13.10 4.2.7.2.686 [id number] [facility] 2023-03-23 09:00:00 2023-03-23 09:00:00 Outpatient R NATHAN COOPER [facility] [id number] [facility] 2023-03-23 09:00:00 2023-03-23 09:00:00 Outpatient R NATHAN COOPER [facility] [id number] [facility] 2022-06-22 14:30:00 2022-06-22 14:49:02 Outpatient R NATHAN COOPER [facility] [id number] [facility] 2022-06-22 14:30:00 2022-06-22 14:49:02 Office Visit SelinaNathan mccall [facility] 1.2.840.114 350.1.13.10 4.2.7.2.686 [id number] [facility] 2022-06-16 13:30:00 2022-06-16 13:39:44 Outpatient R NATHAN COOPER [facility] [id number] [facility] 2022-06-16 13:30:00 2022-06-16 13:39:44 Office Visit SelinaNathan mccall [facility] 1.2.840.114 350.1.13.10 4.2.7.2.686 [id number] [facility] 2022-06-16 00:00:00 2022-06-16 00:00:00 Orders Only Doctor Unassigned, [place] [facility] 1.2.840.114 350.1.13.10 4.2.7.2.686 [id number] [facility] 2022-06-02 11:00:00 2022-06-02 11:00:00 Office Visit SelinaNathan mccall [facility] 1.2.840.114 350.1.13.10 4.2.7.2.686 [id number] [facility] 2022-06-02 11:00:00 2022-06-02 10:25:45 Outpatient R SELINANATHAN MCCALL [facility] [id number] [facility] 2022-03-02 00:00:00 2022-03-02 00:00:00 [facility] 1.2.840.114 350.1.13.10 4.2.7.2.686 [id number] [facility] 2021-11-28 14:36:00 2021-11-28 17:20:00 Emergency X JULIENNE MOLINANELL [facility] ERT [id number] [facility] 2021-11-28 14:36:00 2021-11-28 17:20:00 Emergency Jesse Nery [facility] 1.2.840.114 350.1.13.10 4.2.7.2.686 [id number] [facility] 2021-11-28 00:00:00 2021-11-28 00:00:00 Telephone Stacia Ferreira [facility] 1.2.840.114 350.1.13.10 4.2.7.2.686 [id number] [facility] 2021-11-28 00:00:00 2021-11-28 00:00:00 Orders Only Doctor Unassigned, [place] [facility] 1.2840.114 350.1.13.10 4.2.7.2.686 [id number] [facility] 2021-11-05 10:00:00 2021-11-05 10:00:00 Outpatient PARVEZ BATEMAN [facility] [id number] [facility] 2021-10-09 10:30:00 2021-10-09 10:30:00 Outpatient STACIA RECINOS [facility] [id number] [facility] 2021-06-04 09:30:00 2021-06-04 09:30:00 Outpatient STACIA RECINOS [facility] [id number] [facility] 2021-05-15 16:38:00 2021-05-15 17:02:35 Office Visit Rajendra Stacia Sinclair [facility] 1.2.840.114 350.1.13.10 4.2.7.2.686 [id number] [facility] 2021-05-15 16:15:00 2021-05-15 16:15:00 [id number] 2021-05-14 00:00:00 2021-05-14 00:00:00 Telephone Stacia Ferreira [facility] nal [facility] 1.2.840.114 350.1.13.10 4.2.7.2.686 [id number] [facility] 2021-04-08 14:00:00 2021-04-08 14:00:00 Outpatient STACIA RECINOS [facility] [id number] [facility] 2021-03-24 10:45:00 2021-03-24 10:45:00 Outpatient NAN MITCHELL [facility] [id number] [facility] 2020-11-01 08:15:00 2020-11-01 08:15:00 Outpatient MARGARITA EPREZ [facility] [id number] [facility] 2020-10-03 13:15:00 2020-10-03 13:15:00 Outpatient MANUEL HENDERSON [facility] [id number] [facility] 2020-09-25 09:33:33 2020-09-25 23:59:00 Outpatient MANUEL HENDERSON [facility] [id number] [facility] 2020-08-30 09:45:00 2020-08-30 09:45:00 Outpatient MANUEL HENDERSON [facility] [id number] [facility] 2020-05-21 08:30:00 2020-05-21 08:30:00 Outpatient NAN MITCHELL [facility] [id number] [facility] 2020-03-08 00:00:00 2020-03-08 00:00:[address] [facility] 1.2.840.114 350.1.13.10 4.2.7.2.686 [id number] 134 [id number] 2020-01-09 00:00:00 2020-01-09 00:00:00 Telephone Stacia Ferreira [facility] 1.2.840.114 350.1.13.10 4.2.7.2.686 [id number] 134 [id number] 2019-12-04 13:00:00 2019-12-04 13:00:00 [facility] [id number] 2019-12-04 00:00:00 2019-12-04 00:00:00 Telephone Stacia Ferreira [facility] 1.2.840.114 350.1.13.10 4.2.7.2.686 [id number] 2019-12-04 00:00:00 2019-12-04 00:00:00 Orders Only Doctor Unassigned, [place] [facility] 1.2.840.114 350.1.13.10 4.2.7.2.686 [id number] 2019-11-21 00:00:00 2019-11-21 00:00:00 Telephone Stacia Ferreira [facility] 1.2.840.114 350.1.13.10 4.2.7.2.686 [id number] 134 [id number] 2019-11-16 10:00:00 2019-11-16 10:00:00 Outpatient NAN MITCHELL [facility] [id number] [facility] 2019-10-24 15:08:52 2019-10-27 18:45:00 In[facility] [id number] [facility] 2019-10-05 13:00:00 2019-10-05 14:51:16 Outpatient STACIA RECINOS [facility] [id number] [facility] Results Test Description Test Time Test Comments Results [facility] Specific [id number] 17:18:00* Test Item Value Reference Range Interpretation Comme nts POCT PH U (test code = 3254) n/a 5-8 POCT U LEUK EST (test code = 3263) n/a Negative - Negative POCT U NIT (test code = 3262) n/a Negative - Negati ve POCT U PROT (test code = 3259) negative Negative - Negat kaitlynn POCT U GLU (test code = 3256) normal Negative - Negati ve POCT U KETONE (test code = 3258) n/a Negative - Neg ative POCT U BLD (test code = 3257) n/a Negative - Negati ve [facility] [id number] 17:02:00* Test Item Value Reference Range Interpretation Comme nts POCT PH U (test code = 3254) n/a 5-8 POCT U LEUK EST (test code = 3263) n/a Negative - N egative POCT U NIT (test code = 3262) n/a Negative - Negati ve POCT U PROT (test code = 3259) neg Negative - Negat kaitlynn POCT U GLU (test code = 3256) neg Negative - Negati ve POCT U KETONE (test code = 3258) n/a Negative - Neg ative POCT U BLD (test code = 3257) n/a Negative - Negati ve [facility] [id number] 19:09:31Ordered by an unspecified provider.[facility]/o Specific [id number] 15:58:00* Test Item Value Reference Range Interpretation Comme nts POCT PH U (test code = 3254) n/a 5-8 POCT U LEUK EST (test code = 3263) n/a Negative - Negative POCT U NIT (test code = 3262) n/a Negative - Negati ve POCT U PROT (test code = 3259) negative Negative - Negat kaitlynn POCT U GLU (test code = 3256) negative Negative - Negati ve POCT U KETONE (test code = 3258) n/a Negative - Neg ative POCT U BLD (test code = 3257) n/a Negative - Negati ve [facility] [id number] 15:58:00* Test Item Value Reference Range Interpretation Comme nts POCT PREG (test code = 1605) Positive On board controls acceptable with C Line (test code = 3574) Yes POCT PREG LOT # (test code = 3575) POCT PREG TEST DATE ( test code = 3576) [facility] [id number] 20:28:00* Test Item Value Reference Range Interpretation Comme nts POCT PREG (test code = 1605) Negative On board controls acceptable with C Line (test code = 3574) Yes POCT PREG LOT # (test code = 3575) POCT PREG TEST DATE ( test code = 3576) [facility] [id number] 20:28:00* Test Item Value Reference Range Interpretation Comme nts POCT PREG (test code = 1605) Negative On board controls acceptable with C Line (test code = 3574) Yes POCT PREG LOT # (test code = 3575) POCT PREG TEST DATE ( test code = 3576) [facility] METABOLIC PANEL ([id number])2021-11-28 21:13:22* Test Item Value Reference Range Interpretation Comme nts NA (test code = 9167310265) 138 mmol/L 135-145 K (test code = 4910319950) 4.1 mmol/L 3.5-5.0 CL (test code = 7392298760) 104 mmol/L 98-108 CO2 TOTAL (test code = 0175959061) 22 mmol/L 23-31 L AGAP (test code = 9741348957) 2-16 BUN (test code = 8139170600) 12 mg/dL 7-23 GLUCOSE (test code = 7393744355) 84 mg/dL 70-110 CREATININE (test code = 9081535039) 0.65 mg/dL 0.50-1.04 TOTAL BILI (test code = 2622615601) 0.8 mg/dL 0.1-1.1 CALCIUM (test code = 5301619982) 9.2 mg/dL 8.6-10.6 T PROTEIN (test code = 9296214051) 7.5 g/dL 6.3-8.2 ALBUMIN (test code = 8472293424) 4.5 g/dL 3.5-5.0 ALK PHOS (test code = 7526019939) 55 U/L 34-122 ALTv (test code = 1742-6) 24 U/L 5-35 AST(SGOT) (test code = 7140208951) 27 U/L 13-40 eGFR (test code = 3507558352) mL/min/1.73m2 ALVARADO (test code = ALVARADO) Association [...] imaging tests). Lab Interpretation (test code = 37676-5) Abnormal [facility] WITH [id number] 21:03:02* Test Item Value Reference Range Interpretation Comme nts WBC (test code = 6690-2) See_Comment [Automated messa ge] The system which generated this result transmitted reference range: 4.30 - 11.10 10*3/?L. The reference range was not used to interpret this result as normal/abnormal. RBC (test code = 789-8) See_Comment [Automated messa ge] The system which [...] 34.2 g/dL 31.6-35.1 RDW-SD (test code = 96399-2) 37.2 fL 39.0-49.9 L RDW-CV (test code = 788-0) 12.4 % 12.0-15.5 PLT (test code = 777-3) See_Comment [Automated messa ge] The system which generated this result transmitted reference range: 166 - 358 10*3/?L. The reference range was not used to interpret this result as normal/abnormal. MPV (test code = 97430-7) 10.2 fL 9.5-12.9 NRBC/100 WBC (test code = 5687261018) See_Comment [Automated Güdpod ssage] The system which generated this result transmitted reference range: 0.0 - 10.0 /100 WBCs. The reference range was not used to interpret this result as normal/abnormal. NRBC x10^3 (test code = 3117869092) <0.01 See_Comment [Automated messa ge] The system which generated this result transmitted reference range: 10*3/?L. The reference range was not used to interpret this result as normal/abnormal. GRAN MAT (NEUT) % (test code = 770-8) 61.6 % IMM GRAN % (test code = 7795627806) 0.30 % LYMPH % (test code = 736-9) 30.7 % MONO % (test code = 5905-5) 4.6 % EOS % (test code = 713-8) 2.4 % BASO % (test code = 706-2) 0.4 % GRAN MAT x10^3(ANC) (test code = 8716248614) 4.93 10*3/uL 1.88-7.09 IMM GRAN x10^3 (test code = 1861066468) <0.03 0.00-0.06 LYMPH x10^3 (test code = 731-0) 2.45 10*3/uL 1.32-3.29 MONO x10^3 (test code = 742-7) 0.37 10*3/uL 0.33-0.92 EOS x10^3 (test code = 711-2) 0.19 10*3/uL 0.03-0.39 BASO x10^3 (test code = 704-7) 0.03 10*3/uL 0.01-0.07 Lab Interpretation (test code = 34422-8) [facility]normal [facility] [id number] 20:21:00* Test Item Value Reference Range Interpretation Comme nts POCT PREG (test code = 1605) negative On board controls acceptable with C Line (test code = 3574) present POCT PREG LOT # (test code = 3575) [id number] POCT PREG TEST DATE ( test code = 3576) Lab Interpretation (test cod e = 06288-5) Normal [facility] Notes Date/Time Note Provider Source 2024-12-05 08:15:00 Images from the original note were not included. Venipuncture collection performed by clean technique on the left anticubitus. Total of 1 attempts were made. Slight pressure and a bandage/dressing were applied to the site(s). The patient experienced no complications. The following specimens were processed according to instructions and sent to [facility] laboratories per lab order on 12/05/2024 : Given 100gm orange glucola. Finished at 0805. LT BLUE SST 1 RED LAV PPT DK GREEN (LiHep) DK GREEN (SodH) [place] DK BLUE (K2) DK BLUE (S) ACD Blood Culture NIPT/NTD [facility] 2024-12-05 08:15:00 Images from the original note were not included. Venipuncture collection performed by clean technique on the right anticubitus. Total of 1 attempts were made. Slight pressure and a bandage/dressing were applied to the site(s). The patient experienced no complications. The following specimens were processed according to instructions and sent to [facility] [employer] per lab order on 12/05/2024 : LT BLUE SST 1 RED LAV PPT DK GREEN (LiHep) DK GREEN (SodH) [place] DK BLUE (K2) DK BLUE (S) ACD Blood Culture NIPT/NTD T [facility] 2024-12-05 08:15:00 Images from the original note were not included. Venipuncture collection performed by clean technique on the left anticubitus. Total of 1 attempts were made. Slight pressure and a bandage/dressing were applied to the site(s). The patient experienced no complications. The following specimens were processed according to instructions and sent to [facility] [employer] per lab order on 12/05/2024 : LT BLUE SST 1 RED LAV PPT DK GREEN (LiHep) DK GREEN (SodH) [place] DK BLUE (K2) DK BLUE (S) ACD Blood Culture NIPT/NTD [facility] 2024-12-05 08:15:00 Images from the original note were not included. Venipuncture collection performed by clean technique on the right anticubitus. Total of 1 attempts were made. Slight pressure and a bandage/dressing were applied to the site(s). The patient experienced no complications. The following specimens were processed according to instructions and sent to [facility] laboratories per lab order on 12/05/2024 : LT BLUE SST 1 RED LAV PPT DK GREEN (LiHep) DK GREEN (SodH) [place] DK BLUE (K2) DK BLUE (S) ACD Blood Culture NIPT/NTD [facility] 2024-12-04 11:15:00 Reviewed recent ultrasound results, show: Normal follow up anatomy, EFW 68%ile. [facility] 2024-10-24 08:00:00 Age: [age] year old GA: 22w0d ASSESSMENT: Kelly Moncada is a 29 year old at 22w0d who presents for routine visit. Patient Active Problem List Diagnosis BMI 36.0-36.9,adult Chronic midline low back pain with sciatica, sciatica laterality unspecified High-risk in second trimester PLAN 1. High-risk in second trimester --low risk NIPS --MSAFP NL --10/19/24: Nl anatomy, some limited views, 96%ile - POCT Urinalysis w/o Specific [place] 2. Severe obesity due to excess calories affecting in second trimester --Discussed with pt solid dating by LMP c/w 9 week US. Large size of fetus. Recommend walking 30 minutes daily after heavies meal 3. 22 weeks gestation of - POCT Urinalysis w/o Specific [place] [facility] 2024-10-24 08:00:00 Addended by: SERENITY BRADFORD on: 10/25/2024 11:44 AM Modules accepted: Orders YN Bradford RN [facility] 2024-10-19 13:00:00 Reviewed recent ultrasound results, show: Normal anatomy, some limited views. ISH MAKER [facility] 2024-09-28 11:15:00 Age: [age] year old GA: 18w2d ASSESSMENT: Kelly Moncada is a 28 year old at 18w2d who presents for routine visit. Patient Active Problem List Diagnosis BMI 36.0-36.9,adult Chronic midline low back pain with sciatica, sciatica laterality unspecified High-risk in second trimester PLAN 1. High-risk in second trimester --low risk NIPS --Reviewed MSAFP NL 2. headache in second trimester --Tylenol 650 mg prn pain --Recommend getting a dental exam ilana Can start Mg supplements daily 3. Breast pain during --normal appearing breast tissue --discussed with pt wearing a supportive sports bra to help 4. 18 weeks gestation of - POCT Urinalysis w/o Specific [place] [facility] 2024-09-11 12:23:36 Name and verified, pt states she started with symptoms of flu-like symptoms, including a fever of 98?F, body aches, congestion, and a cough yesterday. Pt has not taken any medication. She states she has only been drinking lemon water. Safe medication list was reviewed with pt. Advised pt if symptoms persist or worsen to go to Urgent Care or ER for further evaluation. Pt verbalized understanding Brenda Childress RN 09/11/2024 12:28 PM ISH MAKER Brenda Childress RN [facility] 2024-09-11 11:39:30 Kelly Moncada is a 28 year old female The patient experiencing flu-like symptoms, including a fever of 97?F, body aches, congestion, and a cough. She inquires about medications to take YN Rico [facility] 2024-09-08 15:00:00 Images from the original note were not included. Venipuncture collection performed by clean technique on the left anticubitus. Total of 1 attempts were made. Slight pressure and a bandage/dressing were applied to the site(s). The patient experienced no complications. The following specimens were processed according to instructions and sent to [facility] laboratories per lab order on 09/08/2024 : LT BLUE SST 1 RED LAV PPT DK GREEN (LiHep) DK GREEN (SodH) [place] DK BLUE (K2) DK BLUE (S) ACD Blood Culture NIPT/NTD [facility] 2024-08-31 11:00:00 Age: [age] year old GA: 14w2d ASSESSMENT: Kelly Moncada is a 28 year old at 14w2d who presents for routine visit. Patient Active Problem List Diagnosis BMI 36.0-36.9,adult Chronic midline low back pain with sciatica, sciatica laterality unspecified High-risk in second trimester PLAN 1. High-risk in second trimester --low risk NIPS --carrier testing neg - POCT Urinalysis w/o Specific [place] - Alpha Fetoprotein-Maternal Ser; Future - CONSULT MATERNAL MEDICINE ULTRASOUND Multiple Gestation: No 2. 14 weeks gestation of - POCT Urinalysis w/o Specific [place] - Alpha Fetoprotein-Maternal Ser; Future - CONSULT MATERNAL MEDICINE ULTRASOUND Multiple Gestation: No [facility] 2024-08-09 10:55:06 [employer] message was sent Brenda Childress RN 08/09/2024 10:55 AM ISH MAKER Brenda Childress RN [facility] 2024-08-09 09:51:25 Attempted to reach pt, no answer, left a vm Brenda Childress RN 08/09/2024 9:51 AM [facility] 2024-08-09 09:18:07 Images from the original note were not included. Pt unable to log-in to [employer], pt would like to know the gender, requesting to upload the result to her [employer]. ISH MAKER Kendal Rico [facility] 2024-08-08 17:00:59 Received [employer] results via fax. Stamped and will be scanned/uploaded into pt's chart. Brenda Childress RN 08/08/2024 5:01 PM ISH MAKER Brenda Childress RN [facility] 2024-08-08 16:57:34 Received [employer] results via fax. Stamped and will be scanned/uploaded into pt's chart. [employer] message sent Brenda Childress RN 08/08/2024 4:58 PM ISH MAKER Brenda Childress RN [facility] 2024-08-01 16:33:34 [employer] message sent to pt Brenda Childress RN 08/01/2024 4:33 PM ISH MAKER Brenda Childress RN [facility] 2024-08-01 16:21:45 Attempted to reach pt, no answer, left a vm Brenda Childress RN 08/01/2024 4:21 PM [facility] 2024-08-01 16:20:09 Patient returned missed all for results ISH MAKER Marguerite Solano [facility] 2024-07-28 08:45:00 Images from the original note were not included. Venipuncture collection performed by clean technique on the left anticubitus. Total of 1 attempts were made. Slight pressure and a bandage/dressing were applied to the site(s). The patient experienced no complications. The following specimens were processed according to instructions and sent to [facility] laboratories per lab order on 07/28/2024 : Eileen collected and shipped today. LT BLUE SST 5 RED 1 LAV 4 PPT DK GREEN (LiHep) DK GREEN (SodH) [place] DK BLUE (K2) DK BLUE (S) ACD Blood Culture NIPT/NTD Patient has been identified by and name and was provided with cup, antiseptic towelette, and clean catch instructions. 2 urine specimen(s) sent. Unpreserved 1 Urine Culture 1 Aptima tube Other urine ISH MAKER [facility] 2024-07-24 10:35:11 Noted, pt will be 9w2d on 07/27/2024 Brenda Childress RN 07/24/2024 10:35 AM ISH MAKER Brenda Childress RN [facility] 2024-07-24 10:25:35 Kelly Moncada is a 28 year old female LMP 05/23/2024 ISH MAKER Nathalie Us [facility]"
[2024-12-07] MEDS ORDERED: NA CHLORIDE 0.9% 1,000 ML ONE (00:42)
[2024-12-07] MEDS ORDERED: ONDANSETRON 4 MG/2 ML VIAL ONE (00:42)
[2024-12-07 00:59] LABS: Absolute Eosinophils 0.1 K/uL (0-0.5); Absolute Lymphocytes (CBC) 1.3 K/uL (0.7-4.9); Absolute Monocytes 0.6 K/uL (0.1-1.3); Absolute Neutrophil 12.6 K/uL (1.8-8.0); Basophils % 0.2 % (0-1.3); Eosinophils % 0.6 % (0-4.4); Hematocrit 37.1 % (36.0-45.0); Lymphocytes % 9.1 % (15.3-44.8); MCH 29.3 pg (27.0-35.0); MCHC 35.1 g/dL (32.0-36.0); MCV 83.6 fL (80-100); MPV 8.6 fL (7.6-11.3); Monocytes % 4.2 % (3.3-12.3); Neutrophils % 85.9 % (41.7-73.7); Platelets 235 thou/uL (152-406); RBC Red Blood Cell Count 4.44 M/uL (3.86-4.86); Red Cell Distribution Width 13.4 % (12.1-15.2)
[2024-12-07 01:00] LABS: Specific Gravity > 1.030 (1.005-1.030); Sqamous Epithelial 20-50 /HPF (None Seen); Urine Bacteria None Seen /HPF (<20); Urine Bilirubin NEGATIVE (Negative); Urine Blood Negative (Negative); Urine Clarity Extremely Turbid (Clear); Urine Color Yellow (Yellow); Urine Crystals Unidentified Few /HPF (None Seen); Urine Culture Reflex Order NOT NEEDED; Urine Glucose NEGATIVE (Negative); Urine Ketones NEGATIVE (Negative); Urine Microscopic Reflex YN ORDER UMIC; Urine Mucus 2+ /HPF (None Seen); Urine Nitrite NEGATIVE (Negative); Urine Protein 1+ (Negative); Urine Urobilinogen Normal (Normal); Urine pH 6.5 (5.0-7.0)
[2024-12-07 01:17] LABS: ALT/SGPT 22 U/L (13-56); Albumin/Globulin Ratio 0.7 (1.1-1.8); Alkaline Phosphatase 72 U/L (45-117); Anion Gap 10.6 mEq/L (5.0-15.0); BUN Blood Urea Nitrogen 10 mg/dL (7-18); Bicarbonate 23 mEq/L (21-32); Bilirubin Total 0.5 mg/dL (0.2-1.0); Globulin 4.1 g/dL (2.3-3.5); Glomerular Filtration Rate 132 ml/min (=/>90); Glucose Level 103 mg/dL (74-106); Lipase 25 U/L (13-75); Potassium 3.6 mEq/L (3.5-5.1); Protein, Total 7.1 g/dL (6.4-8.2); Sodium Level 134 mEq/L (136-145)
[2024-12-07 01:30] LABS: AST/SGOT < 10 U/L (15-37)
[2024-12-07] MEDS ORDERED: NITROFURAN MACRO 100 MG CAP PO ONE (01:48)
--- NOTE | 2024-12-07 02:13 | EDPHYS ---
Physician Documentation [facility] Name: Kelly Hill Age: 29 yrs Sex: Female : 1995 Arrival Date: 12/07/2024 Time: 00:04 Bed 14 Private MD: ED Physician Kassie Cyr HPI: 12/07 00:33 This 29 yrs old Female presents to ER via Ambulatory with complaints of sw6 Nausea/Vomiting, Pelvic Pain, EST 28 WKS GESTATION. 00:33 The patient presents to the emergency department with nausea, vomiting, abdominal pain. sw6 Onset: The symptoms/episode began/occurred today. Possible causes: sick contacts, by family. The symptoms are aggravated by nothing. The symptoms are alleviated by nothing. Associated signs and symptoms: Pertinent negatives: vaginal discharge. Severity of symptoms: At their worst the symptoms were mild in the emergency department the symptoms are unchanged. The patient presents from home for evaluation for nausea and vomiting started today. She reports her family was sick with a GI bug several days ago. No back pain exposure. No recent trips or travel or antibiotics. She is currently at approximately 28 weeks gestation and is 2 para 1-0-0-1. She does follow with [facility]. She is feeling the baby move. No vaginal bleeding or discharge. She is having some abdominal cramps. No dysuria or hematuria. No medication taken prior to arrival. No history of high blood pressure or diabetes. Here for evaluation.. 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 - Infectious Disease History:: Denies. - Social history:: Smoking status: Patient denies any tobacco usage or history of. ROS: 00:33 Abdomen/GI: Positive for abdominal pain, nausea and vomiting, Negative for diarrhea, sw6 00:33 : Negative for urinary symptoms, vaginal bleeding, vaginal discharge, 00:33 All other systems are negative, 02:14 Constitutional: Negative for fever, chills, and weight loss, sw6 Exam: 00:33 Constitutional: This is a well developed, well nourished patient who is awake, alert, sw6 and in no acute distress. Cardiovascular: Regular rate and rhythm with a normal S1 and S2. No gallops, murmurs, or rubs. Normal PMI, no JVD. No pulse deficits. Respiratory: Lungs have equal breath sounds bilaterally, clear to auscultation and percussion. No rales, rhonchi or wheezes noted. No increased work of breathing, no retractions or nasal flaring. Abdomen/GI: Soft, non-tender, with normal bowel sounds. No distension or tympany. No guarding or rebound. No evidence of tenderness throughout. 00:33 Skin: Warm, dry with normal turgor. Normal color with no rashes, no lesions, and no evidence of cellulitis. MS/ Extremity: Pulses equal, no cyanosis. Neurovascular intact. Full, normal range of motion. Neuro: Awake and alert, GCS 15, oriented to person, place, time, and situation. Cranial nerves II-XII grossly intact. Motor strength 5/5 in all extremities. Sensory grossly intact. Cerebellar exam normal. Normal gait. Psych: Awake, alert, with orientation to person, place and time. Behavior, mood, and affect are within normal limits. 00:33 ENT: Dry mucous membranes. Vital Signs: 00:29 BP 139 / 83; Pulse 108; Resp 18; Temp 98.2; Pulse Ox 99% ; Weight 103.42 kg; Height 5 vc1 ft. 4 in. ; 02:05 BP 132 / 88; Pulse 87; Resp 18 S; Pulse Ox 99% on R/A; br2 02:41 BP 131 / 79; Pulse 80; Resp 18; Pulse Ox 99% ; br2 00:29 Body Mass Index 39.14 (103.42 kg, 162.56 cm) vc1 Procedures: 00:33 Ultrasound: Type: OB, performed by the emergency department physician, Single sw6 intrauterine with a heart rate of 135 and an estimated gestational age of 28 weeks and 3 days.. MDM: 00:33 Differential diagnosis: Nonspecific abd pain, viral gastroenteritis, gastroenteritis, sw6 labor. Data reviewed: vital signs, nurses notes. 02:11 Data reviewed: lab test result(s). ED course: The patient is doing well in ER. Her sw6 nausea and vomiting has resolved after the administration of antiemetics earlier today. Her laboratory studies are unremarkable. Her urinalysis does show leukocyte Estrace as well as a high specific gravity. As she is currently we will start her on antibiotics. She was given a p.o. challenge here in the ER and able to tolerate by mouth without difficulty. She remained stable here in the ER and is okay for discharge home with PCP follow-up.. 02:13 Medical Screening Exam initiated 12/07 00:33 Order name: CBC with Diff; Complete Time: 01:20 12/07 01:20 Interpretation: Abnormal: Leukocytosis. 12/07 00:33 Order name: CMP; Complete Time: 01:40 12/07 01:40 Interpretation: Within normal limits. 12/07 00:33 Order name: Lipase; Complete Time: 01:40 12/07 00:33 Order name: Urinalysis w/ reflexes; Complete Time: 01:20 12/07 01:21 Interpretation: Abnormal: Leukocyte esterase. 12/07 00:33 Order name: IV Saline Lock; Complete Time: 00:36 12/07 00:33 Order name: Labs collected and sent; Complete Time: 00:36 [facility] Administered Medications: 00:46 Drug: Ondansetron IVP 4 mg IVP once; over 2 minutes Route: IVP; Site: left antecubital; br2 01:30 Follow up: Response: No adverse reaction br2 00:47 Drug: NS 0.9% IV 1000 ml IV at 1 bolus Per protocol; to be given as a bolus over 60 br2 minutes Route: IV; Rate: 1 bolus; Site: left antecubital; 02:00 Follow up: IV Status: Completed infusion; IV Intake: 1000ml br2 01:58 Drug: Macrobid PO 100 mg PO once; administer with food Route: PO; br2 02:41 Follow up: Response: No adverse reaction br2 Disposition Summary: 12/07/24 02:13 Discharge Ordered Notes: Location: Home [facility] Problem: new sw6 Symptoms: have improved sw6 Condition: Stable 6 Diagnosis - UTI/ Urinary tract infection, site not specified sw6 - Vomiting of , unspecified sw6 Discharge Instructions: - Discharge Summary Sheet sw6 - Nausea and Vomiting, Adult sw6 - Urinary Tract Infection, Adult 6 Forms: - Medication Reconciliation Form 6 - Antibiotic Education 6 - Prescription Opioid Use sw6 - Patient Portal Instructions 6 - Leadership Thank You Letter 6 Prescriptions: - Zofran 4 mg Oral Tablet - take 1 tablet ORAL route every 12 hours As needed; 20 tablet; Refills: 0, sw6 Product Selection Permitted - Macrobid 100 mg Oral Capsule - take 1 capsule ORAL route every 12 hours for 10 days; 20 capsule; Refills: 0, sw6 Product Selection Permitted Signatures: Dispatcher [employer] EDMS Alyse Jay RN RN vc1 Kassie Cyr MD MD sw6 Alexandra Olson RN RN br2 Corrections: (The following items were deleted from the chart) 00:34 00:34 CBC+H.LAB.BRZ ordered. EDMS EDMS 00:34 00:34 COMPREHENSIVE METABOLIC PANEL+C.LAB.BRZ ordered. EDMS EDMS 00:34 00:34 LIPASE+C.LAB.BRZ ordered. EDMS EDMS 00:34 00:34 Urinalysis+U.LAB.BRZ ordered. EDMS EDMS
--- NOTE | 2024-12-07 02:13 | ER ---
Nurse's Notes [facility] Name: Kelly Hill Age: 29 yrs Sex: Female : 1995 Arrival Date: 12/07/2024 Time: 00:04 Bed 14 Private MD: Diagnosis: UTI/ Urinary tract infection, site not specified;Vomiting of , unspecified Presentation: 12/07 00:29 Chief complaint: Patient states: abdominal pain, nausea and vomiting. Coronavirus vc1 screen: Client denies travel out of the [place] in the last 14 days. At this time, the client does not indicate any symptoms associated with coronavirus-19. Ebola Screen: Patient negative for fever greater than or equal to 101.5 degrees Fahrenheit, and additional compatible Ebola Virus Disease symptoms Patient denies exposure to infectious person. Patient denies travel to an Ebola-affected area in the 21 days before illness onset. No symptoms or risks identified at this time. Initial Sepsis Screen: Does the patient meet any 2 criteria? No. Patient's initial sepsis screen is negative. Does the patient have a suspected source of infection? No. Patient's initial sepsis screen is negative. Risk Assessment: Do you want to hurt yourself or someone else? Patient reports no desire to harm self or others. Onset of symptoms was December 06, 2024. Care prior to arrival: None. Activity prior to arrival: None. Mechanism of Injury: No Mechanism of Injury. 00:29 Method Of Arrival: Ambulatory vc1 00:29 Acuity: JULISSA 3 vc1 Triage Assessment: 00:35 General: Appears in no apparent distress. uncomfortable, Behavior is calm, cooperative, vc1 appropriate for age. Pain: Complains of pain in abdomen Also complains of nausea, vomiting. EENT: No deficits noted. No signs and/or symptoms were reported regarding the EENT system. Neuro: Level of Consciousness is awake, alert, obeys commands, Oriented to person, place, time, situation, Appropriate for age. Cardiovascular: Capillary refill < 3 seconds Patient's skin is warm and dry. Respiratory: Airway is patent Respiratory effort is even, unlabored, Respiratory pattern is regular, symmetrical. GI: Reports lower abdominal pain, nausea, vomiting. : Denies vaginal bleeding. Derm: Skin is intact, is healthy with good turgor, Skin is dry, Skin is normal, Skin temperature is warm. Musculoskeletal: Circulation, motion, and sensation intact. Range of motion: intact in all extremities. DIAPER FOLDER: 00:33 2, Full Term 1, Premature 0, 0, Living 1, unknown sw6 00:33 unknown, Approximately 28 weeks gestation sw6 00:37 2, Full Term 1, Living 1, unknown vc1 Historical: - Allergies: 00:32 No Known Allergies; vc1 - Home Meds: 00:32 Vitamin Oral [Active]; vc1 - PMHx: 00:32 None; vc1 - PSHx: 00:32 Ankle - Left; vc1 - Immunization history:: Adult Immunizations up to date. - Infectious Disease History:: Denies. - Social history:: Smoking status: Patient denies any tobacco usage or history of. Screenin:[address] [facility] ED Fall Risk Assessment (Adult) History of falling in the last 3 months, vc1 including since admission No falls in past 3 months (0 pts) Confusion or Disorientation No (0 pts) Intoxicated or Sedated No (0 pts) Impaired Gait No (0 pts) Mobility Assist Device Used No (0 pt) Altered Elimination No (0 pt) Score/Fall Risk Level 0 - 2 = Low Risk Oriented to surroundings, Maintained a safe environment, Educated pt \T\ family on fall prevention, incl call for assistance when getting out of bed, Hourly rounding (assess needs \T\ fall precautionary measures) done. Abuse screen: Denies threats or abuse. Nutritional screening: No deficits noted. Tuberculosis screening: No symptoms or risk factors identified. Assessment: 00:34 Reassessment: Patient and/or family updated on plan of care and expected duration. Pain br2 level reassessed. Patient is alert, oriented x 3, equal unlabored respirations, skin warm/dry/pink. General: Appears uncomfortable, Behavior is calm, cooperative. Pain: Complains of pain in abdomen. Neuro: Laurent Agitation-Sedation Scale (RASS): 0 - Alert and Calm Level of Consciousness is awake, alert, obeys commands, Oriented to person, place, time, situation. Cardiovascular: Denies chest pain. Respiratory: Airway is patent Respiratory effort is even, unlabored, Respiratory pattern is regular, symmetrical. GI: Abdomen is obese, Pt is actively vomiting bile, Reports lower abdominal pain, upper abdominal pain, nausea, vomiting. : No signs and/or symptoms were reported regarding the genitourinary system. EENT: No signs and/or symptoms were reported regarding the EENT system. Derm: No signs and/or symptoms reported regarding the dermatologic system. Musculoskeletal: No signs and/or symptoms reported regarding the musculoskeletal system. 02:04 Reassessment: Patient and/or family updated on plan of care and expected duration. Pain br2 level reassessed. Patient is alert, oriented x 3, equal unlabored respirations, skin warm/dry/pink. Patient states feeling better. Patient states symptoms have improved. Vital Signs: 00:29 BP 139 / 83; Pulse 108; Resp 18; Temp 98.2; Pulse Ox 99% ; Weight 103.42 kg; Height 5 vc1 ft. 4 in. ; 02:05 BP 132 / 88; Pulse 87; Resp 18 S; Pulse Ox 99% on R/A; br2 02:41 BP 131 / 79; Pulse 80; Resp 18; Pulse Ox 99% ; br2 00:29 Body Mass Index 39.14 (103.42 kg, 162.56 cm) vc1 ED Course: 00:07 Patient arrived in ED. jj6 00:23 Kassie Cyr MD is Attending Physician. sw6 00:32 Triage completed. vc1 00:34 Alexandra Olson, MARTA is Primary Nurse. br2 00:34 Arm band placed on right wrist. vc1 00:34 Patient has correct armband on for positive identification. Placed in gown. Bed in low br2 position. Call light in reach. Side rails up X 1. Provided Education on: PLAN OF CARE. 00:34 Inserted saline lock: 20 gauge in left antecubital area, using aseptic technique. Blood br2 collected. Flushed with 10 mL NS. 00:46 CBC with Diff Sent. br2 00:46 CMP Sent. br2 00:46 Lipase Sent. br2 00:46 Urinalysis w/ reflexes Sent. br2 02:04 Diet: Patient given water. br2 02:41 No provider procedures requiring assistance completed. IV discontinued, intact, br2 bleeding controlled, No redness/swelling at site. Pressure dressing applied. Administered Medications: 00:46 Drug: Ondansetron IVP 4 mg IVP once; over 2 minutes Route: IVP; Site: left antecubital; br2 01:30 Follow up: Response: No adverse reaction br2 00:47 Drug: NS 0.9% IV 1000 ml IV at 1 bolus Per protocol; to be given as a bolus over 60 br2 minutes Route: IV; Rate: 1 bolus; Site: left antecubital; 02:00 Follow up: IV Status: Completed infusion; IV Intake: 1000ml br2 01:58 Drug: Macrobid PO 100 mg PO once; administer with food Route: PO; br2 02:41 Follow up: Response: No adverse reaction br2 Medication: 00:34 VIS not applicable for this client. br2 Intake: 02:00 IV: 1000ml; Total: 1000ml. br2 Outcome: 02:13 Discharge ordered by . sw6 02:41 Discharged to home ambulatory, br2 02:41 Condition: good 02:41 Discharge instructions given to patient, Instructed on discharge instructions, follow up and referral plans. Demonstrated understanding of instructions, follow-up care, medications, Prescriptions given X 2, 02:42 Patient left the ED. br2 Signatures: Riddhi Vacaj6 Alyse Jay, RN RN vc1 Kassie Cyr MD MD sw6 Alexandra Olson RN RN br2
[2024-12-07 02:47] VITALS: TEMP 98.2; O2SAT 99
[2024-12-07 02:48] VITALS: BP 132/88
== END 2024-12-07 02:42 | disposition home or self-care (01) ==
LOC: ER 00:04
DX: O23.43 Unspecified infection of urinary tract in pregnancy, third trimester (principal); N39.0 Urinary tract infection, site not specified; O21.9 Vomiting of pregnancy, unspecified; Z3A.28 28 weeks gestation of pregnancy
CPT/HCPCS: 96361; 85025; 81001; 36415; 83690; 80053; 96374; 99284; J2405; J7030